=== PATIENT | male | born 1985 | race American Indian/Alaskan Native ===

== ENCOUNTER 2018-07-26 22:15 | Inpatient (IN) | payer MEDICAID, OTHER ==
--- NOTE | 2018-07-26 22:49 | ED PDOC ---
Arrival/HPI - General Chief Complaint: Psychiatric Evaluation Time Seen by Provider: 07/26/18 22:20 Historian: Patient - History of Present Illness Narrative History of Present Illness (Text): 07/26/18 22:48 Дмитрий Castellon is a 33 year old male who presents to the emergency department complaining of depression tonight. Patient states he has been feeling increasingly depressed recently with associated suicidal ideation and homicidal ideation. Patient denies any fever, chills, chest pain, shortness of breath, abdominal pain, nausea, vomiting, diarrhea, urinary symptoms, back pain , neck pain, headache, dizziness, or any other complaints. Symptom Onset: Gradual Symptom Course: Unchanged Activities at Onset: Light Context: Home Past Medical History - Provider Review Nursing Documentation Reviewed: Yes - Infectious Disease Hx of Infectious Diseases: None - Cardiac Hx Cardiac Disorders: No - Pulmonary Hx Respiratory Disorders: No - Neurological Hx Neurological Disorder: No - HEENT Hx HEENT Disorder: No - Renal Hx Renal Disorder: No - Endocrine/Metabolic Hx Endocrine Disorders: No - Hematological/Oncological Hx Blood Disorders: No - Integumentary Hx Dermatological Disorder: No - Musculoskeletal/Rheumatological Hx Musculoskeletal Disorders: No - Gastrointestinal Hx Gastrointestinal Disorders: Yes - Genitourinary/Gynecological Hx Genitourinary Disorders: No - Psychiatric Hx Psychophysiologic Disorder: Yes Hx Substance Use: No Other/Comment: ADHD Family/Social History - Physician Review Nursing Documentation Reviewed: Yes Family/Social History: Unknown Family HX Smoking Status: Never Smoked Hx Alcohol Use: Yes Frequency of alcohol use: Socially Hx Substance Use: No Allergies/Home Meds Allergies/Adverse Reactions: Allergies No Known Allergies Allergy (Verified 07/27/18 04:05) Home Medications: Home Meds Medication Instructions Recorded Confirmed Methylphenidate HCl [Concerta] 54 mg PO DAILY 07/26/18 07/27/18 OXcarbazepine [Trileptal] 300 mg PO DAILY 07/26/18 07/27/18 Oxcarbazepine [Trileptal] 500 mg PO HS 07/27/18 07/27/18 Review of Systems - Physician Review All systems were reviewed & negative as marked: Yes - Review of Systems Constitutional: Normal. absent: Fevers Eyes: Normal ENT: Normal Respiratory: Normal. absent: SOB, Cough Cardiovascular: Normal. absent: Chest Pain Gastrointestinal: Normal. absent: Abdominal Pain, Diarrhea, Nausea, Vomiting Genitourinary Male: Normal. absent: Dysuria, Frequency, Hematuria, Urinary Output Changes Musculoskeletal: Normal. absent: Back Pain, Neck Pain Skin: Normal. absent: Rash Neurological: Normal. absent: Headache, Dizziness Endocrine: Normal Hemo/Lymphatic: Normal Psychiatric: Depression, Suicidal Ideation, Other (+homicidal ideation) Physical Exam Vital Signs Reviewed: Yes Vital Signs Temp Pulse Resp BP Pulse Ox 07/27/18 03:06 98.2 F 85 16 132/70 100 07/26/18 23:30 98.2 F 30 L 16 135/85 100 Temperature: Afebrile Blood Pressure: Normal Pulse: Regular Respiratory Rate: Normal Appearance: Positive for: Well-Appearing, Non-Toxic, Comfortable Pain Distress: None Mental Status: Positive for: Alert and Oriented X 3 - Systems Exam Head: Present: Atraumatic, Normocephalic Pupils: Present: PERRL Extroacular Muscles: Present: EOMI Conjunctiva: Present: Normal Mouth: Present: Moist Mucous Membranes Neck: Present: Normal Range of Motion Respiratory/Chest: Present: Clear to Auscultation, Good Air Exchange. No: Respiratory Distress, Accessory Muscle Use Cardiovascular: Present: Regular Rate and Rhythm, Normal S1, S2. No: Murmurs Abdomen: No: Tenderness, Distention, Peritoneal Signs Back: Present: Normal Inspection Upper Extremity: Present: Normal Inspection. No: Cyanosis, Edema Lower Extremity: Present: Normal Inspection. No: Edema Neurological: Present: GCS=15, CN II-XII Intact, Speech Normal Skin: Present: Warm, Dry, Normal Color. No: Rashes Psychiatric: Present: Alert, Oriented x 3, Normal Insight, Normal Concentration Medical Decision Making ED Course and Treatment: 07/26/18 22:49 Impression: 33 year old male complaining depression, suicidal ideation, and homicidal ideation. Plan: -- EKG -- Chest X-Ray -- Labs, alcohol level -- Urinalysis, urine drug screen -- Reassess and disposition Prior Visits: Notes and results from previous visits were reviewed. Progress Notes: Reviewed EKG, NSR at [address]-segment elevations or depressions, no T-wave inversions, normal intervals. 07/26/18 23:35 Chest X-Ray reviewed, shows no acute processes. 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 Pt will be admitted to [facility] for depression under Dr. Rdz's service. - Lab Interpretations Lab Results: 07/26/18 22:59 07/26/18 22:59 Lab Results 07/27/18 02:40: Urine Opiates Screen Negative, Urine Methadone Screen Negative, Ur Barbiturates Screen Negative, Ur Phencyclidine Scrn Negative, Ur Amphetamines Screen Negative, U Benzodiazepines Scrn Negative, U Oth Cocaine Metabols Negative, U Cannabinoids Screen Negative 07/27/18 02:40: Urine Color Yellow, Urine Appearance Clear, Urine pH 6.5, Ur Specific [place] 1.025, Urine Protein Trace H, Urine Glucose (UA) Negative, Urine Ketones Trace H, Urine Blood Negative, Urine Nitrate Negative, Urine Bilirubin Negative, Urine Urobilinogen 0.2, Ur Leukocyte Esterase Negative, Urine RBC 0 - 2, Urine WBC 0 - 2, Ur Epithelial Cells 0 - 2, Urine Bacteria Occ , Urine Other Mucus 07/26/18 22:59: Alcohol, Quantitative < 10 07/26/18 22:59: Salicylates < 1 L, Acetaminophen < 10.0 L 07/26/18 22:59: Sodium 143, Potassium 4.1, Chloride 105, Carbon Dioxide 28, Anion Gap 14, BUN 13, Creatinine 0.9, Est GFR ( Amer) > 60, Est GFR (Non- Af Amer) > 60, Random Glucose 88, Calcium 9.0, Magnesium 2.1, Total Bilirubin 0.5, AST 22, ALT 25, Alkaline Phosphatase 87, Total Creatine Kinase 75, Total Protein 7.0, Albumin 3.7, Globulin 3.2, Albumin/Globulin Ratio 1.1 07/26/18 22:59: WBC 9.9, RBC 4.62, Hgb 14.5, Hct 42.3, MCV 91.6, MCH 31.4, MCHC 34.3, RDW 12.6, Plt Count 339, MPV 9.6, Gran % 67.7, Lymph % (Auto) 25.3, [place] % (Auto) 5.3, Eos % (Auto) 1.4 L, Baso % (Auto) 0.3, Gran # 6.69 H, Lymph # ( Auto) 2.5, [place] # (Auto) 0.5, Eos # (Auto) 0.1, Baso # (Auto) 0.03 I have reviewed the lab results: Yes - RAD Interpretation Radiology Orders: 07/26/18 22:48 CHEST PORTABLE [RAD] Stat 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: ED Physician - EKG Interpretation Interpreted by ED Physician: Yes Type: 12 lead EKG - Medication Orders Current Medication Orders: Acetaminophen (Tylenol 325mg Tab) 650 mg PO Q4H PRN PRN Reason: Pain, Mild (1-3) Al Hydrox/Mg Hydrox/Simethicone (Maalox Plus 30 Ml) 30 ml PO DAILY PRN PRN Reason: Upset Stomach Magnesium Hydroxide (Milk Of Magnesia) 30 ml PO DAILY PRN PRN Reason: Constipation - Scribe Statement The provider has reviewed the documentation as recorded by the Elma Brown Provider Scribe Attestation: All medical record entries made by the Scribe were at my direction and personally dictated by me. I have reviewed the chart and agree that the record accurately reflects my personal performance of the history, physical exam, medical decision making, and the department course for this patient. I have also personally directed, reviewed, and agree with the discharge instructions and disposition. Disposition/Present on Arrival - Present on Arrival Any Indicators Present on Arrival: No History of DVT/PE: No History of Uncontrolled Diabetes: No Urinary Catheter: No History of Decub. Ulcer: No History Surgical Site Infection Following: None - Disposition Have Diagnosis and Disposition been Completed?: Yes Diagnosis: Depression Disposition: HOSPITALIZED Disposition Time: 02:25 Condition: GOOD
[2018-07-26 23:32] LABS: BASO # 0.03 K/mm3 (0.0-2.0); BASO % 0.3 % (0.0-3.0); EOS # 0.1 (0.0-0.7); EOS % 1.4 % (1.5-5.0); GRAN # 6.69 (1.4-6.5); GRAN % 67.7 % (50.0-68.0); HEMOGLOBIN 14.5 g/dL (14.0-18.0); LYMPH # 2.5 (1.2-3.4); LYMPH % 25.3 % (22.0-35.0); MEAN CELL VOLUME 91.6 fl (80.0-105.0); MEAN CORPUSCULAR HEMOGLOBIN 31.4 pg (25.0-35.0); MEAN CORPUSCULAR HGB CONC 34.3 g/dl (31.0-37.0); MEAN PLATELET VOLUME 9.6 fl (7.0-11.0); MONO # 0.5 (0.1-0.6); MONO % 5.3 % (1.0-6.0); RBC 4.62 10^6/uL (3.5-6.1); RED CELL DISTRIBUTION WIDTH 12.6 % (11.5-14.5); WHITE BLOOD COUNT 9.9 10^3/ul (4.5-11.0)
[2018-07-26 23:49] LABS: ALB/GLOB RATIO 1.1 (1.1-1.8); ALBUMIN 3.7 g/dL (3.0-4.8); ALT/SGPT 25 U/L (7-56); AST/SGOT 22 U/L (17-59); BLOOD UREA NITROGEN 13 mg/dL (7-21); GFR NON-AFRICAN AMERICAN > 60
[2018-07-27 00:02] LABS: ACETAMINOPHEN < 10.0 ug/ml (10.0-20.0); SALICYLATE < 1 mg/dL (2.0-20.0)
[2018-07-27 00:37] VITALS: O2SAT 100
[2018-07-27 03:06] LABS: PH,URINE 6.5 (4.7-8.0); URINE BILIRUBIN NEGATIVE (NEGATIVE); URINE BLOOD NEGATIVE (NEGATIVE); URINE GLUCOSE (UA) NEGATIVE (NEGATIVE); URINE LEUKOCYTE ESTERASE NEGATIVE Leu/uL (NEGATIVE); URINE PROTEIN TRACE mg/dL (<30 mg/dL); URINE UROBILINOGEN 0.2 E.U./dL (<1 E.U./dL)
[2018-07-27 03:10] LABS: URINE APPEARANCE CLEAR (CLEAR); URINE COLOR YELLOW (YELLOW)
[2018-07-27 03:16] LABS: URINE BACTERIA OCC (NEG); URINE EPITHELIAL CELLS 0 - 2 /hpf (0-5); URINE RBC 0 - 2 /hpf (0-2); URINE WBC 0 - 2 /hpf (0-6)
[2018-07-27 04:16] LABS: BARBITURATES, UR NEGATIVE (NEGATIVE); BENZODIAZEPINES, UR NEGATIVE (NEGATIVE); OPIATES, UR NEGATIVE (NEGATIVE); PHENCYCLIDINE, UR NEGATIVE (NEGATIVE)
[2018-07-27] MEDS ORDERED: Magnesium Hydroxide Susp 30 ml UD PO PRN (04:37)
[2018-07-27] MEDS ORDERED: Alum-Mag Hydrox-Simethicone Susp (30 mL) PO PRN (04:37)
--- NOTE | 2018-07-27 04:46 | PCM.BM ---
<Ezequiel Roca - Last Filed: 07/27/18 04:42> Treatment Plan Problems - Problems identified on initial assessmt SUICIDAL IDEATION Date Initiated: 07/27/18 Time Initiated: 05:00 Status: Active Priority: 1 HOMICIDAL IDEATION Date Initiated: 07/27/18 Time Initiated: 05:00 Assessment reference: NA Status: Active Priority: 2 INEFFECTIVE COPING Date Initiated: 07/27/18 Time Initiated: 17:00 Assessment reference: NA Status: Active Priority: 3 Treatment assets and liabiliti Patient Assests: cooperative, educated, motivated, self-reliant, ADL independent , physically healthy, good support system, negotiates basic needs, financial stabiity, cognitively intact Patient Liabilities: live alone, financial problems, relationship conflicts, medical problems <Nikita Ballard - Last Filed: 07/27/18 10:43> - Diagnosis (1) Anxiety Status: Acute Interventions: 07/27/18 10:44 Lexapro 5 mg po daily for depression and anxiety * Ativan 0.5 mg AM/HS for anxiety * Sonata 5 mg po HS prn: insomnia * (2) Homicidal behavior Status: Acute Interventions: Lexapro 5 mg po daily for depression and anxiety * Ativan 0.5 mg AM/HS for anxiety * Sonata 5 mg po HS prn: insomnia * Outreach to [facility] regarding [place] 07/27/18 10:44 (3) Depression Status: Acute Interventions: 07/27/18 10:44 Lexapro 5 mg po daily for depression and anxiety * Ativan 0.5 mg AM/HS for anxiety * Sonata 5 mg po HS prn: insomnia * <Katherine Chacko - Last Filed: 07/28/18 10:02> Family Contact Family involvement: Famliy/SO not involved <Lesly Sterling - Last Filed: 08/07/18 12:17>
[2018-07-27 07:48] LABS: GLUCOSE,FASTING 116 mg/dL (65-110); HDL CHOLESTEROL 56 mg/dL (29-60)
[2018-07-27 07:59] LABS: LDL CHOLESTEROL 107 mg/dL (0-129)
--- NOTE | 2018-07-27 08:31 | RAD ---
Date of service: 07/26/2018 HISTORY: si COMPARISON: No prior. FINDINGS: LUNGS: No active pulmonary disease. PLEURA: No significant pleural effusion identified, no pneumothorax apparent. CARDIOVASCULAR: Normal. OSSEOUS STRUCTURES: No significant abnormalities. VISUALIZED UPPER ABDOMEN: Normal. OTHER FINDINGS: None. IMPRESSION: No active disease.
--- NOTE | 2018-07-27 09:58 | CARD ---
APPROVED REPORT Date of service: 07/26/2018 EKG Measurement Heart [id number] <Conclusion> Normal sinus rhythm Small q in lll J-point elevations
--- NOTE | 2018-07-27 10:42 | PCM.PSYCH ---
Initial Psychiatric Evaluation - Initial Psychiatric Evaluation Type of Admission: Voluntary Legal Status: Capacity History of Present Illness and Precipitating Events: Mr. Дмитрий Castellon is a single 33 year old, homeless -[place] male with a reported history of depression and anxiety, no history of SA, no current outpatient tx who presented to the emergency department complaining of depression and thoughts to harm his former 70 year old boyfriend who evicted him from their [place] apartment a month ago. Patient reported he had a lot of anger towards this exbf who had also apparently thrown out his belongings. Patient admitted that he had thoughts of killing himself and burning down his ex -boyfriend's home so he went to the [facility] upon his friend's advice. Patient presents as pleasant, friendly and well-oriented to month, year, location and circumstances. Indicates that he was just discharged from [facility] x 3 weeks ago and didn't take discharge medications because he didn't find them to be beneficial. Reports that lexapro and ativan have been beneficial for him in the past. He also reports that he used to be prescribed Concerta for ADHD but understands that he will not be receiving this medication on the unit. Patient has been in good control. He denies having thoughts to harm himself or his exboyfriend. He seems labile but not particularly angry or agitated. SOCIAL Patient was born in [place] and raised in [place]. Patient is homosexual and was living with his 70 yo boyfriend who was also his employer. He was evicted a month ago from this residence in [place], [place]. He is currently homeless and stays with friends or in hotels. Collateral information from [facility] indicates that this exboyfriend has a restraining order against patient. It appears that patient tried to obtain squatter's rights to the apartment but was kicked out before the 30 day residency minimum. Patient denies drug or alcohol use. Smokes a pack of cigarettes daily. I reviewed morbidity and mortality risks of continued tobacco use and patient agrees to start nicotine patch. Legal: Pt reported that he was arrested 3 weeks ago for breaking glass in [place], [place], Pt reported he was taken to the police station, mug shot and finger prints were taken, went to court and released. Pt reported that no probation or fine was given. Denies any other legal history. PSYCHIATRIC HISTORY Patient reports recent admission to [facility] x3 days x3 weeks ago. He cannot recall prescribed medications but felt they were not beneficial. Reports that he was diagnosed with ADHD and has taken Concerta in the past by his PCP Dr. Lisa Lyons @[phone]. Pt reported that he has not seen her in 1 year that he has been seeing other doctors for his medication (because she had a baby). Patient was also prescribed trileptal 300 mg AM and 450 mg HS for reported seizures secondary to the stress of the last 1-2 months (per patient). Pt reported he went [place] [facility] [place] and reported that he had a bad experience withthe staff and the doctors not providing him with his own medication. Current Medications: Active Medications Generic Name Dose Route Start Last Admin Trade Name Freq PRN Reason Stop Dose Admin Acetaminophen 650 mg 07/27/18 04:37 Tylenol 325mg Tab PO Q4H PRN Pain, Mild (1-3) Al Hydrox/Mg Hydrox/Simethicone 30 ml 07/27/18 04:37 Maalox Plus 30 Ml PO DAILY PRN Upset Stomach Magnesium Hydroxide 30 ml 07/27/18 04:37 Milk Of Magnesia PO DAILY PRN Constipation Past Psychiatric History - Past Psychiatric History Pertinent Medical Hx (Current Medical&Sleep Prob, Allergies): Allergies Allergy/AdvReac Type Severity Reaction Status Date / Time No Known Allergies Allergy Verified 07/27/18 04:05 Methylphenidate HCl [Concerta] 54 mg PO DAILY 07/26/18 OXcarbazepine [Trileptal] 300 mg PO DAILY 07/26/18 Oxcarbazepine [Trileptal] 500 mg PO HS 07/27/18 DSM 5 DX - DSM 5 DSM 5 Diagnosis: Adjustment disorder with mixed depression and anxiety RUFUS Panic Disorder by hx ADHD by hx r/o Major Depression, severe without psychotic features r/o Borderline Personality Disorder - Recommended/Plan of Treatment Treatment Recommendations and Plan of Treatment: * group, milieu and supportive tx * Lexapro 5 mg po daily for depression and anxiety * Ativan 0.5 mg AM/HS for anxiety * Sonata 5 mg po HS prn: insomnia * Nicotine patch 21 mg * Neurology consult for reported history of seizures--Will start trileptal 300 mg po bid until patient is evaluated. Medical student confirmed that patient was prescribe trileptal 300 mg po bid by Dr. Mancini, last refilled on 07/14/18 * Outreach to ex warning him of patient's reported Homicidal thoughts * Vitals reviewed and noted below: Selected Entries 07/27/18 07:12 Temperature 98.0 F Pulse Rate 68 Respiratory 20 Rate Blood Pressure 101/62 * Admission labs noted below: Laboratory Tests 07/26/18 07/26/18 07/26/18 22:59 22:59 22:59 WBC 9.9 RBC 4.62 Hgb 14.5 Hct 42.3 MCV 91.6 MCH 31.4 MCHC 34.3 RDW 12.6 Plt Count 339 MPV 9.6 Gran % 67.7 Lymph % (Auto) 25.3 [place] % (Auto) 5.3 Eos % (Auto) 1.4 L Baso % (Auto) 0.3 Gran # 6.69 H Lymph # (Auto) 2.5 [place] # (Auto) 0.5 Eos # (Auto) 0.1 Baso # (Auto) 0.03 Sodium 143 Potassium 4.1 Chloride 105 Carbon Dioxide 28 Anion Gap 14 BUN 13 Creatinine 0.9 Est GFR ( Amer) > 60 Est GFR (Non-Af Amer) > 60 Random Glucose 88 Fasting Glucose Calcium 9.0 Magnesium 2.1 Total Bilirubin 0.5 AST 22 ALT 25 Alkaline Phosphatase 87 Total Creatine Kinase 75 Total Protein 7.0 Albumin 3.7 Globulin 3.2 Albumin/Globulin Ratio 1.1 Triglycerides Cholesterol LDL Cholesterol Direct HDL Cholesterol TSH 3rd Generation Urine Color Urine Appearance Urine pH Ur Specific [place] Urine Protein Urine Glucose (UA) Urine Ketones Urine Blood Urine Nitrate Urine Bilirubin Urine Urobilinogen Ur Leukocyte Esterase Urine RBC Urine WBC Ur Epithelial Cells Urine Bacteria Urine Other Salicylates < 1 L Urine Opiates Screen Urine Methadone Screen Acetaminophen < 10.0 L Ur Barbiturates Screen Ur Phencyclidine Scrn Ur Amphetamines Screen U Benzodiazepines Scrn U Oth Cocaine Metabols U Cannabinoids Screen Alcohol, Quantitative 07/26/18 07/27/18 07/27/18 22:59 02:40 02:40 WBC RBC Hgb Hct MCV MCH MCHC RDW Plt Count MPV Gran % Lymph % (Auto) [place] % (Auto) Eos % (Auto) Baso % (Auto) Gran # Lymph # (Auto) [place] # (Auto) Eos # (Auto) Baso # (Auto) Sodium Potassium Chloride Carbon Dioxide Anion Gap BUN Creatinine Est GFR ( Amer) Est GFR (Non-Af Amer) Random Glucose Fasting Glucose Calcium Magnesium Total Bilirubin AST ALT Alkaline Phosphatase Total Creatine Kinase Total Protein Albumin Globulin Albumin/Globulin Ratio Triglycerides Cholesterol LDL Cholesterol Direct HDL Cholesterol TSH 3rd Generation Urine Color Yellow Urine Appearance Clear Urine pH 6.5 Ur Specific [place] 1.025 Urine Protein Trace H Urine Glucose (UA) Negative Urine Ketones Trace H Urine Blood Negative Urine Nitrate Negative Urine Bilirubin Negative Urine Urobilinogen 0.2 Ur Leukocyte Esterase Negative Urine RBC 0 - 2 Urine WBC 0 - 2 Ur Epithelial Cells 0 - 2 Urine Bacteria Occ Urine Other Mucus Salicylates Urine Opiates Screen Negative Urine Methadone Screen Negative Acetaminophen Ur Barbiturates Screen Negative Ur Phencyclidine Scrn Negative Ur Amphetamines Screen Negative U Benzodiazepines Scrn Negative U Oth Cocaine Metabols Negative U Cannabinoids Screen Negative Alcohol, Quantitative < 10 07/27/18 07/27/18 06:30 06:30 WBC RBC Hgb Hct MCV MCH MCHC RDW Plt Count MPV Gran % Lymph % (Auto) [place] % (Auto) Eos % (Auto) Baso % (Auto) Gran # Lymph # (Auto) [place] # (Auto) Eos # (Auto) Baso # (Auto) Sodium Potassium Chloride Carbon Dioxide Anion Gap BUN Creatinine Est GFR ( Amer) Est GFR (Non-Af Amer) Random Glucose Fasting Glucose 116 H Calcium Magnesium Total Bilirubin AST ALT Alkaline Phosphatase Total Creatine Kinase Total Protein Albumin Globulin Albumin/Globulin Ratio Triglycerides 117 Cholesterol 202 H LDL Cholesterol Direct 107 HDL Cholesterol 56 TSH 3rd Generation 1.01 Urine Color Urine Appearance Urine pH Ur Specific [place] Urine Protein Urine Glucose (UA) Urine Ketones Urine Blood Urine Nitrate Urine Bilirubin Urine Urobilinogen Ur Leukocyte Esterase Urine RBC Urine WBC Ur Epithelial Cells Urine Bacteria Urine Other Salicylates Urine Opiates Screen Urine Methadone Screen Acetaminophen Ur Barbiturates Screen Ur Phencyclidine Scrn Ur Amphetamines Screen U Benzodiazepines Scrn U Oth Cocaine Metabols U Cannabinoids Screen Alcohol, Quantitative - Smoking Cessation Smoking Cessation Initiated: Yes
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
[2018-07-28] MEDS ORDERED: POLYETHYLENE GLYCOL 3350 17 GM/Dose PACKET PO PRN (16:15)
[2018-07-28] MEDS: Hemorrohoidal Ointment (2 oz) TOP SCH (17:06)
[2018-07-29] MEDS: Hemorrohoidal Ointment (2 oz) TOP SCH ×2 (08:47→17:00)
--- NOTE | 2018-07-29 09:12 | PCM.PYCHPN ---
Psychiatric Progress Note - Psychiatric Progress Note Patient seen today, length of contact: 30 min Problems Identified/Issues Discussed: History of Present Illness and Precipitating Events: Mr. Дмитрий Castellon is a single 33 year old, homeless -[place] male with a reported history of depression and anxiety, no history of SA, no current outpatient tx who presented to the emergency department complaining of depression and thoughts to harm his former 70 year old boyfriend who evicted him from their [place] apartment a month ago. Patient reported he had a lot of anger towards this exbf who had also apparently thrown out his belongings. Patient admitted that he had thoughts of killing himself and burning down his ex -boyfriend's home so he went to the [facility] upon his friend's advice. Patient presents as pleasant, friendly and well-oriented to month, year, location and circumstances. Indicates that he was just discharged from x 3 weeks ago and didn't take discharge medications because he didn't find them to be beneficial. Reports that lexapro and ativan have been beneficial for him in the past. He also reports that he used to be prescribed Concerta for ADHD but understands that he will not be receiving this medication on the unit. Patient has been in good control. He denies having thoughts to harm himself or his exboyfriend. He seems labile but not particularly angry or agitated. SOCIAL Patient was born in [place] and raised in [place]. Patient is homosexual and was living with his 70 yo boyfriend who was also his employer. He was evicted a month ago from this residence in [place], [place]. He is currently homeless and stays with friends or in hotels. Collateral information from [facility] indicates that this exboyfriend has a restraining order against patient. It appears that patient tried to obtain [facility] rights to the [facility] but was kicked out before the 30 day residency minimum. Patient denies drug or alcohol use. Smokes a pack of cigarettes daily. I reviewed morbidity and mortality risks of continued tobacco use and patient agrees to start nicotine patch. Legal: Pt reported that he was arrested 3 weeks ago for breaking glass in [place], [place], Pt reported he was taken to the police station, mug shot and finger prints were taken, went to court and released. Pt reported that no probation or fine was given. Denies any other legal history. PSYCHIATRIC HISTORY Patient reports recent admission to x3 days x3 weeks ago. He cannot recall prescribed medications but felt they were not beneficial. Reports that he was diagnosed with ADHD and has taken Concerta in the past by his PCP Dr. Lisa Lyons @[phone]. Pt reported that he has not seen her in 1 year that he has been seeing other doctors for his medication (because she had a baby). Patient was also prescribed trileptal 300 mg AM and 450 mg HS for reported seizures secondary to the stress of the last 1-2 months (per patient). Pt reported he went to [facility] for treatment and reported that he had a bad experience withthe staff and the doctors not providing him with his own medication. PROGRESS NOTE I reviewed recent notes and met with patient at bedside. Patient continues to present as pleasant, friendly and well-oriented to month, year, location and circumstances. He has been calm and cooperative on the unit without any evidence of perceptual disturbance. Patient can communicate his needs well. Patient currently denies any side effects from his medications or any new discomfort or pain. Patient has been visible and participating in unit activities. He can tolerate group settings with evidence of anger or agitation. There have been no behavioral issues thus far. Diagnostic Results: Adjustment disorder with mixed depression and anxiety RUFUS Panic Disorder by hx ADHD by hx r/o Major Depression, severe without psychotic features r/o Borderline Personality Disorder Medication Change: Yes (Increased lexapro) Medical Record Reviewed: Yes Mental Status Examination - Homicidal Ideation Homicidal Ideation: Yes Goal/Treatment Plan - Goal/Treatment Plan Progress Toward Problem(s) and Goals/Treatment Plan: * group, milieu and supportive tx * Lexapro increased to 10 mg po daily on 07/28/18 for depression and anxiety * Ativan 0.5 mg AM/HS for anxiety * Sonata 5 mg po HS prn: insomnia * Nicotine patch 21 mg daily * Appreciate f/u by Dr. Vogel/Dr. Cruz on 07/28/18~Topical cream, sitz baths , miralax prn for Hemorrhoids, pending HIV, HPV, GC/Chlamydia, HSV, RPR blood tests for anal tags/warts, c/w trileptal and ativan for hx of seizures and signed off * STILL AWAITING NEUROLOGY CONSULT: neurology consult for reported history of seizures--Will start trileptal 300 mg po bid until patient is evaluated. Medical student confirmed that patient was prescribe trileptal 300 mg po bid by Dr. Mancini, last refilled on 07/14/18 * Outreach to ex warning him of patient's reported Homicidal thoughts (which patient now denies) * Vitals reviewed and noted below: Selected Entries 07/28/18 07/28/18 07:12 15:03 Temperature 97.4 F L Pulse Rate 67 96 H Respiratory 20 Rate Blood Pressure 109/62 121/73 * Admission labs noted below: Laboratory Tests 07/26/18 07/26/18 07/26/18 22:59 22:59 22:59 WBC 9.9 RBC 4.62 Hgb 14.5 Hct 42.3 MCV 91.6 MCH 31.4 MCHC 34.3 RDW 12.6 Plt Count 339 MPV 9.6 Gran % 67.7 Lymph % (Auto) 25.3 [place] % (Auto) 5.3 Eos % (Auto) 1.4 L Baso % (Auto) 0.3 Gran # 6.69 H Lymph # (Auto) 2.5 [place] # (Auto) 0.5 Eos # (Auto) 0.1 Baso # (Auto) 0.03 Sodium 143 Potassium 4.1 Chloride 105 Carbon Dioxide 28 Anion Gap 14 BUN 13 Creatinine 0.9 Est GFR ( Amer) > 60 Est GFR (Non-Af Amer) > 60 Random Glucose 88 Fasting Glucose Calcium 9.0 Magnesium 2.1 Total Bilirubin 0.5 AST 22 ALT 25 Alkaline Phosphatase 87 Total Creatine Kinase 75 Total Protein 7.0 Albumin 3.7 Globulin 3.2 Albumin/Globulin Ratio 1.1 Triglycerides Cholesterol LDL Cholesterol Direct HDL Cholesterol TSH 3rd Generation Urine Color Urine Appearance Urine pH Ur Specific Guin Urine Protein Urine Glucose (UA) Urine Ketones Urine Blood Urine Nitrate Urine Bilirubin Urine Urobilinogen Ur Leukocyte Esterase Urine RBC Urine WBC Ur Epithelial Cells Urine Bacteria Urine Other Salicylates < 1 L Urine Opiates Screen Urine Methadone Screen Acetaminophen < 10.0 L Ur Barbiturates Screen Ur Phencyclidine Scrn Ur Amphetamines Screen U Benzodiazepines Scrn U Oth Cocaine Metabols U Cannabinoids Screen Alcohol, Quantitative 07/26/18 07/27/18 07/27/18 22:59 02:40 02:40 WBC RBC Hgb Hct MCV MCH MCHC RDW Plt Count MPV Gran % Lymph % (Auto) [place] % (Auto) Eos % (Auto) Baso % (Auto) Gran # Lymph # (Auto) [place] # (Auto) Eos # (Auto) Baso # (Auto) Sodium Potassium Chloride Carbon Dioxide Anion Gap BUN Creatinine Est GFR ( Amer) Est GFR (Non-Af Amer) Random Glucose Fasting Glucose Calcium Magnesium Total Bilirubin AST ALT Alkaline Phosphatase Total Creatine Kinase Total Protein Albumin Globulin Albumin/Globulin Ratio Triglycerides Cholesterol LDL Cholesterol Direct HDL Cholesterol TSH 3rd Generation Urine Color Yellow Urine Appearance Clear Urine pH 6.5 Ur Specific Guin 1.025 Urine Protein Trace H Urine Glucose (UA) Negative Urine Ketones Trace H Urine Blood Negative Urine Nitrate Negative Urine Bilirubin Negative Urine Urobilinogen 0.2 Ur Leukocyte Esterase Negative Urine RBC 0 - 2 Urine WBC 0 - 2 Ur Epithelial Cells 0 - 2 Urine Bacteria Occ Urine Other Mucus Salicylates Urine Opiates Screen Negative Urine Methadone Screen Negative Acetaminophen Ur Barbiturates Screen Negative Ur Phencyclidine Scrn Negative Ur Amphetamines Screen Negative U Benzodiazepines Scrn Negative U Oth Cocaine Metabols Negative U Cannabinoids Screen Negative Alcohol, Quantitative < 10 07/27/18 07/27/18 06:30 06:30 WBC RBC Hgb Hct MCV MCH MCHC RDW Plt Count MPV Gran % Lymph % (Auto) [place] % (Auto) Eos % (Auto) Baso % (Auto) Gran # Lymph # (Auto) [place] # (Auto) Eos # (Auto) Baso # (Auto) Sodium Potassium Chloride Carbon Dioxide Anion Gap BUN Creatinine Est GFR ( Amer) Est GFR (Non-Af Amer) Random Glucose Fasting Glucose 116 H Calcium Magnesium Total Bilirubin AST ALT Alkaline Phosphatase Total Creatine Kinase Total Protein Albumin Globulin Albumin/Globulin Ratio Triglycerides 117 Cholesterol 202 H LDL Cholesterol Direct 107 HDL Cholesterol 56 TSH 3rd Generation 1.01 Urine Color Urine Appearance Urine pH Ur Specific Guin Urine Protein Urine Glucose (UA) Urine Ketones Urine Blood Urine Nitrate Urine Bilirubin Urine Urobilinogen Ur Leukocyte Esterase Urine RBC Urine WBC Ur Epithelial Cells Urine Bacteria Urine Other Salicylates Urine Opiates Screen Urine Methadone Screen Acetaminophen Ur Barbiturates Screen Ur Phencyclidine Scrn Ur Amphetamines Screen U Benzodiazepines Scrn U Oth Cocaine Metabols U Cannabinoids Screen Alcohol, Quantitative
[2018-07-30] MEDS: Hemorrohoidal Ointment (2 oz) TOP SCH ×2 (08:38→16:17)
--- NOTE | 2018-07-30 09:29 | PCM.PYCHPN ---
Psychiatric Progress Note - Psychiatric Progress Note Patient seen today, length of contact: 30 min Problems Identified/Issues Discussed: History of Present Illness and Precipitating Events: Mr. Дмитрий Castellon is a single 33 year old, homeless -Citizen Of [place] male with a reported history of depression and anxiety, no history of SA, no current outpatient tx who presented to the emergency department complaining of depression and thoughts to harm his former 70 year old boyfriend who evicted him from their [place] apartment a month ago. Patient reported he had a lot of anger towards this exbf who had also apparently thrown out his belongings. Patient admitted that he had thoughts of killing himself and burning down his ex -boyfriend's home so he went to the [facility] upon his friend's advice. Patient presents as pleasant, friendly and well-oriented to month, year, location and circumstances. Indicates that he was just discharged from [facility] x 3 weeks ago and didn't take discharge medications because he didn't find them to be beneficial. Reports that lexapro and ativan have been beneficial for him in the past. He also reports that he used to be prescribed Concerta for ADHD but understands that he will not be receiving this medication on the unit. Patient has been in good control. He denies having thoughts to harm himself or his exboyfriend. He seems labile but not particularly angry or agitated. SOCIAL Patient was born in [place] and raised in [place]. Patient is homosexual and was living with his 70 yo boyfriend who was also his employer. He was evicted a month ago from this residence in [place], [place]. He is currently homeless and stays with friends or in hotels. Collateral information from [facility] indicates that this exboyfriend has a restraining order against patient. It appears that patient tried to obtain [facility] rights to the [facility] but was kicked out before the 30 day residency minimum. Patient denies drug or alcohol use. Smokes a pack of cigarettes daily. I reviewed morbidity and mortality risks of continued tobacco use and patient agrees to start nicotine patch. Legal: Pt reported that he was arrested 3 weeks ago for breaking glass in [place], [place], Pt reported he was taken to the police station, mug shot and finger prints were taken, went to court and released. Pt reported that no probation or fine was given. Denies any other legal history. PSYCHIATRIC HISTORY Patient reports recent admission to [facility] x3 days x3 weeks ago. He cannot recall prescribed medications but felt they were not beneficial. Reports that he was diagnosed with ADHD and has taken Concerta in the past by his PCP Dr. Lisa Lyons @[phone]. Pt reported that he has not seen her in 1 year that he has been seeing other doctors for his medication (because she had a baby). Patient was also prescribed trileptal 300 mg AM and 450 mg HS for reported seizures secondary to the stress of the last 1-2 months (per patient). Pt reported he went to [facility] for treatment and reported that he had a bad experience withthe staff and the doctors not providing him with his own medication. PROGRESS NOTE I reviewed recent notes and met with patient at bedside. Patient continues to present as pleasant, friendly and well-oriented to month, year, location and circumstances. He has been calm and cooperative on the unit without any evidence of perceptual disturbance. Patient can communicate his needs well. Patient currently denies any side effects from his medications or any new discomfort or pain. He reports that he still has anxiety with ativan and requests switch to klonopin which he feels may have been more beneficial for mood and anxiety symptoms. He also reports that sleep was restless last night despite sonata 5 mg given. Patient has been visible and participating in unit activities. He can tolerate group settings with evidence of anger or agitation. There have been no behavioral issues thus far. Diagnostic Results: Adjustment disorder with mixed depression and anxiety RUFUS Panic Disorder by hx ADHD by hx r/o Major Depression, severe without psychotic features r/o Borderline Personality Disorder Medication Change: Yes (Increased sonata, changed ativan to klonopin) Medical Record Reviewed: Yes Mental Status Examination - Homicidal Ideation Homicidal Ideation: Yes Goal/Treatment Plan - Goal/Treatment Plan Progress Toward Problem(s) and Goals/Treatment Plan: * group, milieu and supportive tx * Lexapro increased to 10 mg po daily on 07/28/18 for depression and anxiety * Ativan 0.5 mg AM/HS for anxiety was switched to equivalent dose of klonopin 0.25 mg AM/HS on 07/30/18. Patient believes klonopin was more effective than ativan for his anxiety * Sonata 5 mg po HS prn: insomnia increased to 10 mg po HS prn on 07/30/18 for c/ o continued insomnia * Nicotine patch 21 mg daily * Appreciate f/u by Dr. Vogel/Dr. Cruz on 07/28/18~Topical cream, sitz baths , miralax prn for Hemorrhoids, pending HIV, HPV, GC/Chlamydia, HSV, RPR blood tests for anal tags/warts, c/w trileptal and ativan for hx of seizures and signed off * STILL AWAITING NEUROLOGY CONSULT: neurology consult for reported history of seizures--Will start trileptal 300 mg po bid until patient is evaluated. Medical student confirmed that patient was prescribe trileptal 300 mg po bid by Dr. Mancini, last refilled on 07/14/18 * Outreach to [facility] warning him of patient's reported Homicidal thoughts (which patient now denies) * Vitals reviewed and noted below: Selected Entries 07/29/18 07/29/18 07:11 16:49 Temperature 98.1 F Pulse Rate 71 78 Respiratory 20 20 Rate Blood Pressure 95/61 L 120/61 07/27/18 06:30 RPR Nonreactive * Admission labs noted below: Laboratory Tests 07/26/18 07/26/18 07/26/18 22:59 22:59 22:59 WBC 9.9 RBC 4.62 Hgb 14.5 Hct 42.3 MCV 91.6 MCH 31.4 MCHC 34.3 RDW 12.6 Plt Count 339 MPV 9.6 Gran % 67.7 Lymph % (Auto) 25.3 [place] % (Auto) 5.3 Eos % (Auto) 1.4 L Baso % (Auto) 0.3 Gran # 6.69 H Lymph # (Auto) 2.5 [place] # (Auto) 0.5 Eos # (Auto) 0.1 Baso # (Auto) 0.03 Sodium 143 Potassium 4.1 Chloride 105 Carbon Dioxide 28 Anion Gap 14 BUN 13 Creatinine 0.9 Est GFR ( Amer) > 60 Est GFR (Non-Af Amer) > 60 Random Glucose 88 Fasting Glucose Calcium 9.0 Magnesium 2.1 Total Bilirubin 0.5 AST 22 ALT 25 Alkaline Phosphatase 87 Total Creatine Kinase 75 Total Protein 7.0 Albumin 3.7 Globulin 3.2 Albumin/Globulin Ratio 1.1 Triglycerides Cholesterol LDL Cholesterol Direct HDL Cholesterol TSH 3rd Generation Urine Color Urine Appearance Urine pH Ur Specific [place] Urine Protein Urine Glucose (UA) Urine Ketones Urine Blood Urine Nitrate Urine Bilirubin Urine Urobilinogen Ur Leukocyte Esterase Urine RBC Urine WBC Ur Epithelial Cells Urine Bacteria Urine Other Salicylates < 1 L Urine Opiates Screen Urine Methadone Screen Acetaminophen < 10.0 L Ur Barbiturates Screen Ur Phencyclidine Scrn Ur Amphetamines Screen U Benzodiazepines Scrn U Oth Cocaine Metabols U Cannabinoids Screen Alcohol, Quantitative 07/26/18 07/27/18 07/27/18 22:59 02:40 02:40 WBC RBC Hgb Hct MCV MCH MCHC RDW Plt Count MPV Gran % Lymph % (Auto) [place] % (Auto) Eos % (Auto) Baso % (Auto) Gran # Lymph # (Auto) [place] # (Auto) Eos # (Auto) Baso # (Auto) Sodium Potassium Chloride Carbon Dioxide Anion Gap BUN Creatinine Est GFR ( Amer) Est GFR (Non-Af Amer) Random Glucose Fasting Glucose Calcium Magnesium Total Bilirubin AST ALT Alkaline Phosphatase Total Creatine Kinase Total Protein Albumin Globulin Albumin/Globulin Ratio Triglycerides Cholesterol LDL Cholesterol Direct HDL Cholesterol TSH 3rd Generation Urine Color Yellow Urine Appearance Clear Urine pH 6.5 Ur Specific [place] 1.025 Urine Protein Trace H Urine Glucose (UA) Negative Urine Ketones Trace H Urine Blood Negative Urine Nitrate Negative Urine Bilirubin Negative Urine Urobilinogen 0.2 Ur Leukocyte Esterase Negative Urine RBC 0 - 2 Urine WBC 0 - 2 Ur Epithelial Cells 0 - 2 Urine Bacteria Occ Urine Other Mucus Salicylates Urine Opiates Screen Negative Urine Methadone Screen Negative Acetaminophen Ur Barbiturates Screen Negative Ur Phencyclidine Scrn Negative Ur Amphetamines Screen Negative U Benzodiazepines Scrn Negative U Oth Cocaine Metabols Negative U Cannabinoids Screen Negative Alcohol, Quantitative < 10 07/27/18 07/27/18 06:30 06:30 WBC RBC Hgb Hct MCV MCH MCHC RDW Plt Count MPV Gran % Lymph % (Auto) [place] % (Auto) Eos % (Auto) Baso % (Auto) Gran # Lymph # (Auto) [place] # (Auto) Eos # (Auto) Baso # (Auto) Sodium Potassium Chloride Carbon Dioxide Anion Gap BUN Creatinine Est GFR ( Amer) Est GFR (Non-Af Amer) Random Glucose Fasting Glucose 116 H Calcium Magnesium Total Bilirubin AST ALT Alkaline Phosphatase Total Creatine Kinase Total Protein Albumin Globulin Albumin/Globulin Ratio Triglycerides 117 Cholesterol 202 H LDL Cholesterol Direct 107 HDL Cholesterol 56 TSH 3rd Generation 1.01 Urine Color Urine Appearance Urine pH Ur Specific [place] Urine Protein Urine Glucose (UA) Urine Ketones Urine Blood Urine Nitrate Urine Bilirubin Urine Urobilinogen Ur Leukocyte Esterase Urine RBC Urine WBC Ur Epithelial Cells Urine Bacteria Urine Other Salicylates Urine Opiates Screen Urine Methadone Screen Acetaminophen Ur Barbiturates Screen Ur Phencyclidine Scrn Ur Amphetamines Screen U Benzodiazepines Scrn U Oth Cocaine Metabols U Cannabinoids Screen Alcohol, Quantitative
[2018-07-31] MEDS: Hemorrohoidal Ointment (2 oz) TOP SCH ×2 (09:16→16:32)
--- NOTE | 2018-07-31 12:04 | PCM.PYCHPN ---
Psychiatric Progress Note - Psychiatric Progress Note Patient seen today, length of contact: 30 min Problems Identified/Issues Discussed: History of Present Illness and Precipitating Events: Mr. Дмитрий Castellon is a single 33 year old, homeless -[place] male with a reported history of depression and anxiety, no history of SA, no current outpatient tx who presented to the emergency department complaining of depression and thoughts to harm his former 70 year old boyfriend who evicted him from their [place] apartment a month ago. Patient reported he had a lot of anger towards this exbf who had also apparently thrown out his belongings. Patient admitted that he had thoughts of killing himself and burning down his ex -boyfriend's home so he went to the [facility] upon his friend's advice. Patient presents as pleasant, friendly and well-oriented to month, year, location and circumstances. Indicates that he was just discharged from [facility] x 3 weeks ago and didn't take discharge medications because he didn't find them to be beneficial. Reports that lexapro and ativan have been beneficial for him in the past. He also reports that he used to be prescribed Concerta for ADHD but understands that he will not be receiving this medication on the unit. Patient has been in good control. He denies having thoughts to harm himself or his exboyfriend. He seems labile but not particularly angry or agitated. SOCIAL Patient was born in [place] and raised in [place]. Patient is homosexual and was living with his 70 yo boyfriend who was also his employer. He was evicted a month ago from this residence in [place], [place]. He is currently homeless and stays with friends or in hotels. Collateral information from [facility] indicates that this exboyfriend has a restraining order against patient. It appears that patient tried to obtain [facility] rights to the [facility] but was kicked out before the 30 day residency minimum. Patient denies drug or alcohol use. Smokes a pack of cigarettes daily. I reviewed morbidity and mortality risks of continued tobacco use and patient agrees to start nicotine patch. Legal: Pt reported that he was arrested 3 weeks ago for breaking glass in [place], [place], Pt reported he was taken to the police station, mug shot and finger prints were taken, went to court and released. Pt reported that no probation or fine was given. Denies any other legal history. PSYCHIATRIC HISTORY Patient reports recent admission to [facility] x3 days x3 weeks ago. He cannot recall prescribed medications but felt they were not beneficial. Reports that he was diagnosed with ADHD and has taken Concerta in the past by his PCP Dr. Lisa yLons @[phone]. Pt reported that he has not seen her in 1 year that he has been seeing other doctors for his medication (because she had a baby). Patient was also prescribed trileptal 300 mg AM and 450 mg HS for reported seizures secondary to the stress of the last 1-2 months (per patient). Pt reported he went to [facility] for treatment and reported that he had a bad experience withthe staff and the doctors not providing him with his own medication. PROGRESS NOTE I reviewed recent notes and met with patient at bedside. Patient continues to present as pleasant, friendly and well-oriented to month, year, location and circumstances. He has been calm and cooperative on the unit without any evidence of perceptual disturbance. Patient can communicate his needs well. Patient currently denies any side effects from his medications or any new discomfort or pain. He reports that switch from ativan to klonopin yesterday was beneficial for his anxiety. Sleep continues to be restless with Sonata 10 mg HS Patient has been visible and participating in unit activities. He can tolerate group settings with evidence of anger or agitation though he generally keeps to himself on the unit. There have been no behavioral issues thus far. Diagnostic Results: Adjustment disorder with mixed depression and anxiety RUFUS Panic Disorder by hx ADHD by hx r/o Major Depression, severe without psychotic features r/o Borderline Personality Disorder Medication Change: No (Increased sonata) Medical Record Reviewed: Yes Mental Status Examination - Homicidal Ideation Homicidal Ideation: Yes Goal/Treatment Plan - Goal/Treatment Plan Progress Toward Problem(s) and Goals/Treatment Plan: * group, milieu and supportive tx * Lexapro increased to 10 mg po daily on 07/28/18 for depression and anxiety * Ativan 0.5 mg AM/HS for anxiety was switched to equivalent dose of klonopin 0.25 mg AM/HS on 07/30/18. Patient believes klonopin was more effective than ativan for his anxiety * Sonata 5 mg po HS prn: insomnia increased to 10 mg po HS prn on 07/30/18 for c/ o continued insomnia * Nicotine patch 21 mg daily * Appreciate f/u by Dr. Vogel/Dr. Cruz on 07/28/18~Topical cream, sitz baths , miralax prn for Hemorrhoids, pending HIV, HPV, GC/Chlamydia, HSV, RPR blood tests for anal tags/warts, c/w trileptal and ativan for hx of seizures and signed off * AWAITING NEUROLOGY CONSULT, REQUESTED F/U BY DR. MCKEON ON 07/31/18: neurology consult for reported history of seizures--Have started trileptal 300 mg po bid until patient is evaluated. Patient reported he started having seizures in the past 1-2 months. Medical student confirmed that patient was prescribe trileptal 300 mg po bid by Dr. Mancini, last refilled on 07/14/18 * Consider outreach to exbf warning him of patient's reported homicidal thoughts [employer]. Of note: patient has been denying any further thoughts to harm himself or his exbf while on the unit. Boyfriend had been contacted by [facility] clinician/art therapist when patient presented there a few weeks ago. He informed the clinician that he had a restraining order on this patient. * Vitals reviewed and noted below: Selected Entries 07/30/18 07/30/18 07:04 16:00 Temperature 97.7 F Pulse Rate 72 83 Respiratory 20 Rate Blood Pressure 122/75 121/79 * Admission labs noted below: Laboratory Tests 07/26/18 07/26/18 07/26/18 22:59 22:59 22:59 WBC 9.9 RBC 4.62 Hgb 14.5 Hct 42.3 MCV 91.6 MCH 31.4 MCHC 34.3 RDW 12.6 Plt Count 339 MPV 9.6 Gran % 67.7 Lymph % (Auto) 25.3 Tucker % (Auto) 5.3 Eos % (Auto) 1.4 L Baso % (Auto) 0.3 Gran # 6.69 H Lymph # (Auto) 2.5 Tucker # (Auto) 0.5 Eos # (Auto) 0.1 Baso # (Auto) 0.03 Sodium 143 Potassium 4.1 Chloride 105 Carbon Dioxide 28 Anion Gap 14 BUN 13 Creatinine 0.9 Est GFR ( Amer) > 60 Est GFR (Non-Af Amer) > 60 Random Glucose 88 Fasting Glucose Calcium 9.0 Magnesium 2.1 Total Bilirubin 0.5 AST 22 ALT 25 Alkaline Phosphatase 87 Total Creatine Kinase 75 Total Protein 7.0 Albumin 3.7 Globulin 3.2 Albumin/Globulin Ratio 1.1 Triglycerides Cholesterol LDL Cholesterol Direct HDL Cholesterol TSH 3rd Generation Urine Color Urine Appearance Urine pH Ur Specific Bethel Urine Protein Urine Glucose (UA) Urine Ketones Urine Blood Urine Nitrate Urine Bilirubin Urine Urobilinogen Ur Leukocyte Esterase Urine RBC Urine WBC Ur Epithelial Cells Urine Bacteria Urine Other Salicylates < 1 L Urine Opiates Screen Urine Methadone Screen Acetaminophen < 10.0 L Ur Barbiturates Screen Ur Phencyclidine Scrn Ur Amphetamines Screen U Benzodiazepines Scrn U Oth Cocaine Metabols U Cannabinoids Screen Alcohol, Quantitative 07/26/18 07/27/18 07/27/18 22:59 02:40 02:40 WBC RBC Hgb Hct MCV MCH MCHC RDW Plt Count MPV Gran % Lymph % (Auto) Tucker % (Auto) Eos % (Auto) Baso % (Auto) Gran # Lymph # (Auto) Tucker # (Auto) Eos # (Auto) Baso # (Auto) Sodium Potassium Chloride Carbon Dioxide Anion Gap BUN Creatinine Est GFR ( Amer) Est GFR (Non-Af Amer) Random Glucose Fasting Glucose Calcium Magnesium Total Bilirubin AST ALT Alkaline Phosphatase Total Creatine Kinase Total Protein Albumin Globulin Albumin/Globulin Ratio Triglycerides Cholesterol LDL Cholesterol Direct HDL Cholesterol TSH 3rd Generation Urine Color Yellow Urine Appearance Clear Urine pH 6.5 Ur Specific Bethel 1.025 Urine Protein Trace H Urine Glucose (UA) Negative Urine Ketones Trace H Urine Blood Negative Urine Nitrate Negative Urine Bilirubin Negative Urine Urobilinogen 0.2 Ur Leukocyte Esterase Negative Urine RBC 0 - 2 Urine WBC 0 - 2 Ur Epithelial Cells 0 - 2 Urine Bacteria Occ Urine Other Mucus Salicylates Urine Opiates Screen Negative Urine Methadone Screen Negative Acetaminophen Ur Barbiturates Screen Negative Ur Phencyclidine Scrn Negative Ur Amphetamines Screen Negative U Benzodiazepines Scrn Negative U Oth Cocaine Metabols Negative U Cannabinoids Screen Negative Alcohol, Quantitative < 10 07/27/18 07/27/18 06:30 06:30 WBC RBC Hgb Hct MCV MCH MCHC RDW Plt Count MPV Gran % Lymph % (Auto) Tucker % (Auto) Eos % (Auto) Baso % (Auto) Gran # Lymph # (Auto) Tucker # (Auto) Eos # (Auto) Baso # (Auto) Sodium Potassium Chloride Carbon Dioxide Anion Gap BUN Creatinine Est GFR ( Amer) Est GFR (Non-Af Amer) Random Glucose Fasting Glucose 116 H Calcium Magnesium Total Bilirubin AST ALT Alkaline Phosphatase Total Creatine Kinase Total Protein Albumin Globulin Albumin/Globulin Ratio Triglycerides 117 Cholesterol 202 H LDL Cholesterol Direct 107 HDL Cholesterol 56 TSH 3rd Generation 1.01 Urine Color Urine Appearance Urine pH Ur Specific Bethel Urine Protein Urine Glucose (UA) Urine Ketones Urine Blood Urine Nitrate Urine Bilirubin Urine Urobilinogen Ur Leukocyte Esterase Urine RBC Urine WBC Ur Epithelial Cells Urine Bacteria Urine Other Salicylates Urine Opiates Screen Urine Methadone Screen Acetaminophen Ur Barbiturates Screen Ur Phencyclidine Scrn Ur Amphetamines Screen U Benzodiazepines Scrn U Oth Cocaine Metabols U Cannabinoids Screen Alcohol, Quantitative
[2018-08-01] MEDS: Hemorrohoidal Ointment (2 oz) TOP SCH ×3 (09:08→16:41)
--- NOTE | 2018-08-01 09:51 | CP.PCM.CON ---
<Denise Lanier - Last Filed: 08/01/18 14:21> History of Present Illness - History of Present Illness History of Present Illness: PGY-1 Denise Lanier D.O. Neurology consult note for Dr. Mendoza's service: Дмитрий Castellon is a 33 yo male with a history of seizures , depression, anxiety, ?ADHD, and hemorrhoids. Patient is currently admitted to the psychiatric unit due to SI/HI and depression symptoms. Neurology was consulted due to the patient reporting that he has experienced seizures over the past 1-2 months. It was confirmed that patient is prescribed Tripleptal by Dr. Mancini as an outpatient. The patient reports he first started having seizures in 2008 (24 yo) when he abruptly stopped his prescription benzodiazepines. The patient states that he continued to have several seizures for about 18 months until he completed a benzo taper. The patient describes having a "funny feeling" prior to seizure onset during which he experiences weakness, dizziness, and GARCIA. He then "blacks out" and witnesses tell him that he has full-body convulsing. The patient has no recollection of convulsions himself. The patient reports being maintained on Depakote for both seizures and mood and Ativan for seizures and anxiety for a number of years. He states he did not have a seizure from 2009 up until about 1-2 months ago. The patient reports many social issues, in particular, he started drinking alcohol more heavily in March of this year. He now drinks 12 beers/day. Also, he alleges that his ex-boyfriend threw away all of his medications. He states a trigger for his seizures is stress. He is unable to accurately state how frequently he is having seizures but eventually estimates 3x/week. He was living with a boyfriend who reportedly told the patient he was having seizures during his sleep. For the past few weeks, the patient has been homeless. The patient states that he believes his last seizure was 1.5 weeks ago, and he thinks someone on the street called 911 to bring him to [facility]. He denies seizure activity during his current admission. PMH: Seizure disorder MDD RUFUS ?ADHD External hemorrhoids Meds: Recently discontinued Depakote and started Tripleptal 300 mg PO BID ~1 month Ativan 0.5 mg PO BID All: NKA FH: brother- epilepsy (onset as ), pt denies substance use father, brother, grandmother- DM SH: Homeless- recent break-up with boyfriend who he was living with in [place] Ex-boyfriend has restraining order against patient Tobacco- 1 ppd Heavy alcohol use- 12 beers/day since March, chronic use prior Denies illicit drug use, including IVDA PMD: Dr. Lisa Lyons Psych: Dr. Live Eddy neurologist Review of Systems - Constitutional Constitutional: absent: Fatigue, Fever, Weakness - EENT Eyes: absent: Blurred Vision, Change in Vision, Diplopia Ears: absent: Tinnitus, Abnormal Hearing, Dizziness - Cardiovascular Cardiovascular: absent: Chest Pain, Dyspnea, Lightheadedness, Palpitations, Syncope - Respiratory Respiratory: absent: Dyspnea - Gastrointestinal Gastrointestinal: absent: Abdominal Pain, Nausea, Vomiting - Musculoskeletal Musculoskeletal: absent: Abnormal Gait, Numbness, Tingling - Neurological Neurological: As Per HPI, Convulsions, Memory Loss (mild). absent: Abnormal Gait, Abnormal Hearing, Dizziness, Numbness, Headaches, Loss of Vision, Paresthesias, Sensory Deficit, Syncope, Tremor, Vertigo, Weakness - Psychiatric Psychiatric: Anxiety, Depression, Irritability, Mood Swings - Endocrine Endocrine: absent: Fatigue, Palpitations Past Patient History - Infectious Disease Hx of Infectious Diseases: None - Tetanus Immunizations Tetanus Immunization: Unknown - Past Medical History & Family History Past Medical History?: Yes Pertinent Family History: brother- epilepsy - Past Social History Smoking Status: Heavy Smoker > 10 Cigarettes Daily (1 ppd) Chewing Tobacco Use: No Cigar Use: No Alcohol: > 2 Drinks/Day (12 beers/day) Drugs: Denies Home Situation {Lives}: Homeless - CARDIAC Hx Cardiac Disorders: No - PULMONARY Hx Respiratory Disorders: No - NEUROLOGICAL Hx Neurological Disorder: No - HEENT Hx HEENT Problems: No - RENAL Hx Chronic Kidney Disease: No - ENDOCRINE/METABOLIC Hx Endocrine Disorders: No - HEMATOLOGICAL/ONCOLOGICAL Hx Blood Disorders: No - INTEGUMENTARY Hx Dermatological Problems: No - MUSCULOSKELETAL/RHEUMATOLOGICAL Hx Musculoskeletal Disorders: No - GASTROINTESTINAL Hx Gastrointestinal Disorders: Yes - GENITOURINARY/GYNECOLOGICAL Hx Genitourinary Disorders: No - PSYCHIATRIC Hx Substance Use: No - SURGICAL HISTORY Hx Surgeries: Yes Hx Herniorrhaphy: Yes Meds Allergies/Adverse Reactions: Allergies Allergy/AdvReac Type Severity Reaction Status Date / Time No Known Allergies Allergy Verified 07/27/18 04:05 - Medications Medications: Current Medications Acetaminophen (Tylenol 325mg Tab) 650 mg PO Q4H PRN PRN Reason: Pain, Mild (1-3) Al Hydrox/Mg Hydrox/Simethicone (Maalox Plus 30 Ml) 30 ml PO DAILY PRN PRN Reason: Upset Stomach Clonazepam (Klonopin) 0.25 mg PO AMHS [facility] PRN Reason: Protocol Last Admin: 08/01/18 09:07 Dose: 0.25 mg Escitalopram Oxalate (Lexapro) 10 mg PO DAILY [facility] Last Admin: 08/01/18 09:07 Dose: 10 mg Magnesium Hydroxide (Milk Of Magnesia) 30 ml PO DAILY PRN PRN Reason: Constipation Multi-Ingredient Ointment (Prep-Hem) 0 ea TOP BID [facility] Last Admin: 08/01/18 09:08 Dose: 1 applic Nicotine (Nicoderm Cq) 1 patch TD DAILY [facility] Last Admin: 08/01/18 09:06 Dose: 1 patch Oxcarbazepine (Trileptal) 300 mg PO BID [facility] PRN Reason: Protocol Last Admin: 08/01/18 09:07 Dose: 300 mg Polyethylene Glycol (Miralax) 17 gm PO DAILY PRN PRN Reason: Constipation Quetiapine Fumarate (Seroquel) 50 mg PO HS [facility] PRN Reason: Protocol Zaleplon (Sonata) 10 mg PO HS PRN PRN Reason: Insomnia Last Admin: 07/31/18 22:42 Dose: 10 mg Physical Exam - Constitutional Appears: Well, Non-toxic, No Acute Distress - Head Exam Head Exam: ATRAUMATIC, NORMAL INSPECTION, NORMOCEPHALIC - Eye Exam Eye Exam: EOMI, Normal appearance, PERRL - ENT Exam ENT Exam: Mucous Membranes Moist, Normal Exam - Neck Exam Neck exam: Positive for: Normal Inspection - Respiratory Exam Respiratory Exam: NORMAL BREATHING PATTERN - Cardiovascular Exam Cardiovascular Exam: REGULAR RHYTHM, +S1, +S2 - Rectal Exam Rectal Exam: Deferred - Extremities Exam Extremities exam: Positive for: normal inspection - Neurological Exam Neurological exam: Alert, CN II-XII Intact, Normal Gait, Oriented x3, Reflexes Normal - Psychiatric Exam Psychiatric exam: Normal Affect, Normal Mood - Skin Skin Exam: Dry, Intact, Normal Color, Warm Results - Vital Signs Recent Vital Signs: Last Vital Signs Temp 97.5 F L 08/01/18 07:13 Pulse 65 08/01/18 07:13 Resp 20 08/01/18 07:13 BP 104/65 08/01/18 07:13 Pulse Ox 100 07/27/18 03:06 - Labs Result Diagrams: 07/26/18 22:59 07/26/18 22:59 - EKG Data EKG Interpreted by: ER Physician EKG shows normal: Sinus rhythm Rate: Normal Assessment & Plan - Assessment and Plan (Free Text) Assessment: Patient is a 33 yo male who is currently being treated in the psych unit for depression and SI/HI. He reports that he recently started having seizures after a period of many years (since 2009). According to patient's accounts, seizures seem consistent with alcohol and/or benzo withdrawal. Plan: Seizure disorder- likely 2/2 substance use (alcohol, benzo withdrawal) - CT head: no acute pathology - F/u EEG - Trileptal 300 mg PO BID - Klonopin 0.25 mg PO BID - Recommend patient establish care with outpatient neurologist once discharged for continued management Depression, anxiety - Management per psychiatry - Currently on Lexapro 10 mg PO daily, Seroquel 50 mg PO QHS Case was discussed with attending, Dr. Mendoza. <Jerod Mendoza - Last Filed: 08/10/18 16:09> Results - Vital Signs Recent Vital Signs: Last Vital Signs Temp 97.9 F 08/09/18 07:01 Pulse 66 08/09/18 07:01 Resp 20 08/09/18 07:01 BP 100/57 L 08/09/18 07:01 Pulse Ox 100 07/27/18 03:06 - Labs Result Diagrams: 07/26/18 22:59 07/26/18 22:59 Attending/Attestation - Attestation I have personally seen and examined this patient.: Yes I have fully participated in the care of the patient.: Yes I have reviewed all pertinent clinical information: Yes Notes (Text): 08/10/18 16:08 On my exam, the patient's speech was fluent, CN 2-12 were intact, AAOX3, full strength, normal sensation, gait was normal, Romberg was normal.
--- NOTE | 2018-08-01 11:00 | CT ---
Date of service: 08/01/2018 PROCEDURE: CT HEAD WITHOUT CONTRAST. HISTORY: history of seizure COMPARISON: None available. TECHNIQUE: Axial computed tomography images were obtained through the head/brain without intravenous contrast. Radiation dose: Total exam DLP = 808 mGy-cm. This CT exam was performed using one or more of the following dose reduction techniques: Automated exposure control, adjustment of the mA and/or kV according to patient size, and/or use of iterative reconstruction technique. FINDINGS: HEMORRHAGE: No intracranial hemorrhage. BRAIN: No mass effect or edema. No atrophy or chronic microvascular ischemic changes. VENTRICLES: Unremarkable. No hydrocephalus. CALVARIUM: Unremarkable. PARANASAL SINUSES: Unremarkable as visualized. No significant inflammatory changes. MASTOID AIR CELLS: Unremarkable as visualized. No inflammatory changes. OTHER FINDINGS: None. IMPRESSION: No acute findings
--- NOTE | 2018-08-01 15:24 | PCM.PYCHPN ---
Psychiatric Progress Note - Psychiatric Progress Note Patient seen today, length of contact: 30 min Patient Chief Complaint: "I don't know where to start" Problems Identified/Issues Discussed: Suicide/ homicide prevention, past psychiatric h/o, current psychiatric symptoms , medical problems, risk/benefits and alternatives of medications, medications compliance, coping strategies, substance abuse h/o, relapse prevention, importance of follow up with psychiatrist and therapist, discharge plan. Medical Problems: questionable seizure disorder Diagnostic Results: 07/26/18 22:59 07/26/18 22:59 Lab Results 07/29/18 08:15: RPR Nonreactive 07/29/18 08:15: HIV 1&2 Ag/Ab, 4th Gen Nonreactive, HPV High Risk Pending, HPV Low Risk Pending 07/27/18 06:30: RPR Nonreactive 07/27/18 06:30: TSH 3rd Generation 1.01 07/27/18 06:30: Fasting Glucose 116 H, Triglycerides 117, Cholesterol 202 H, LDL Cholesterol Direct 107, HDL Cholesterol 56 07/27/18 02:40: Urine Opiates Screen Negative, Urine Methadone Screen Negative, Ur Barbiturates Screen Negative, Ur Phencyclidine Scrn Negative, Ur Amphetamines Screen Negative, U Benzodiazepines Scrn Negative, U Oth Cocaine Metabols Negative, U Cannabinoids Screen Negative 07/27/18 02:40: Urine Color Yellow, Urine Appearance Clear, Urine pH 6.5, Ur Specific [place] 1.025, Urine Protein Trace H, Urine Glucose (UA) Negative, Urine Ketones Trace H, Urine Blood Negative, Urine Nitrate Negative, Urine Bilirubin Negative, Urine Urobilinogen 0.2, Ur Leukocyte Esterase Negative, Urine RBC 0 - 2, Urine WBC 0 - 2, Ur Epithelial Cells 0 - 2, Urine Bacteria Occ , Urine Other Mucus 07/26/18 22:59: Alcohol, Quantitative < 10 07/26/18 22:59: Salicylates < 1 L, Acetaminophen < 10.0 L 07/26/18 22:59: Sodium 143, Potassium 4.1, Chloride 105, Carbon Dioxide 28, Anion Gap 14, BUN 13, Creatinine 0.9, Est GFR ( Amer) > 60, Est GFR (Non- Af Amer) > 60, Random Glucose 88, Calcium 9.0, Magnesium 2.1, Total Bilirubin 0.5, AST 22, ALT 25, Alkaline Phosphatase 87, Total Creatine Kinase 75, Total Protein 7.0, Albumin 3.7, Globulin 3.2, Albumin/Globulin Ratio 1.1 07/26/18 22:59: WBC 9.9, RBC 4.62, Hgb 14.5, Hct 42.3, MCV 91.6, MCH 31.4, MCHC 34.3, RDW 12.6, Plt Count 339, MPV 9.6, Gran % 67.7, Lymph % (Auto) 25.3, [place] % (Auto) 5.3, Eos % (Auto) 1.4 L, Baso % (Auto) 0.3, Gran # 6.69 H, Lymph # ( Auto) 2.5, [place] # (Auto) 0.5, Eos # (Auto) 0.1, Baso # (Auto) 0.03 Vital Signs Temp Pulse Resp BP Pulse Ox 08/01/18 07:13 97.5 F L 65 20 104/65 07/31/18 15:39 80 114/61 07/31/18 07:15 98.2 F 72 20 117/68 07/30/18 16:00 83 121/79 07/30/18 07:04 97.7 F 72 20 122/75 07/29/18 16:49 78 20 120/61 07/29/18 07:11 98.1 F 71 20 95/61 L 07/28/18 15:03 96 H 121/73 07/28/18 07:12 97.4 F L 67 20 109/62 07/27/18 16:20 72 20 110/72 07/27/18 07:12 98.0 F 68 20 101/62 07/27/18 04:31 98.7 F 20 123/71 07/27/18 04:10 20 07/27/18 03:06 98.2 F 85 16 132/70 100 07/26/18 23:30 98.2 F 30 L 16 135/85 100 DSM 5 Symptoms Update: As per Dr. Alvarez assessment: "Mr. Дмитрий Castellon is a single 33 year old, homeless -[place] male with a reported history of depression and anxiety, no history of SA, no current outpatient tx who presented to the emergency department complaining of depression and thoughts to harm his former 70 year old boyfriend who evicted him from their [place] apartment a month ago. Patient reported he had a lot of anger towards this exbf who had also apparently thrown out his belongings. Patient admitted that he had thoughts of killing himself and burning down his ex -boyfriend's home so he went to the [facility] upon his friend's advice. " patient was seen and examined today at the treatment team meeting room, patient presented with good personal hygiene, affect was bright, mood incongruent, patient is smiling widely when he was talking about his depressive symptoms and about difficulties in his life. patient was preoccupied with his ADHD medications, and the same time urine analysis was negative for any stimulants. as per Dr. Alvarez report patient has been in good control. He denies having thoughts to harm himself or his exboyfriend. He seems labile but not particularly angry or agitated. Patient reports recent admission to [facility] x3 days x3 weeks ago. He cannot recall prescribed medications but felt they were not beneficial. Reports that he was diagnosed with ADHD and has taken Concerta in the past by his PCP Dr. Lisa Lyons @[phone]. Pt reported that he has not seen her in 1 year that he has been seeing other doctors for his medication (because she had a baby). UDS was negative. He reports that switch from ativan to klonopin yesterday was beneficial for his anxiety yesterday, but today pt said "this dose cannot help even my 6yo nephew" , Sleep continues to be restless with Sonata 10 mg HS, agreed to take seroquel, pt reported to be on high doses in the past. ' Patient has been visible and participating in unit activities. He can tolerate group settings with evidence of anger or agitation though he generally keeps to himself on the unit. There have been no behavioral issues thus far. patient has strong borderline personality traits, staff splitting. Patient obviously has difficult to to control his impulses, pt agreed with anger management referral. Diagnostic Results: Adjustment disorder with mixed depression and anxiety RUFUS Panic Disorder by hx ADHD by hx r/o Major Depression, severe without psychotic features r/o Borderline Personality Disorder Medication Change: Yes (Seroquel 50 mg at the nighttime) Medical Record Reviewed: Yes Consults ordered or reviewed: neurology consult was called by discussed with internal combustion engine inspector Mental Status Examination - Cognitive Function Orientation: Person, Place, Situation, Time Memory: Intact Attention: Poor Concentration: Poor Association: WNL Fund of Knowledge: WNL - Mood Mood: Depressed, Anxious - Affect Affect: Constricted - Formal Thought Process Formal Thought Process: Circumstantial - Suicidal Ideation Suicidal Ideation: No - Homicidal Ideation Homicidal Ideation: No Goal/Treatment Plan - Goal/Treatment Plan Need for Continued Stay: Remain at risks for inpatient hospitalization, Severe depression anxiety, Discharge may exacerbated symptoms, Severe functional impairment Progress Toward Problem(s) and Goals/Treatment Plan: group, milieu and supportive tx Lexapro 10 mg po daily on 07/28/18 for depression and anxiety klonopin 0.25 mg AM/HS on 07/30/18. Patient believes klonopin was more effective than ativan for his anxiety d/c Sonata seroquel 50mg po hs for mood stabilization Nicotine patch 21 mg daily Appreciate f/u by Dr. Vogel/Dr. Cruz on 07/28/18~Topical cream, sitz baths, miralax prn for Hemorrhoids, pending HIV, HPV, GC/Chlamydia, HSV, RPR blood tests for anal tags/warts, c/w trileptal and ativan for hx of seizures and signed off NEUROLOGY CONSULT REQUESTED by Dr. Ballard, discussed with internal combustion engine inspector today. Patient reported he started having seizures in the past 1-2 months. Medical student confirmed that patient was prescribe trileptal 300 mg po bid by Dr. 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 Of note: patient has been denying any further thoughts to harm himself or his exbf while on the unit. Boyfriend had been contacted by [employer] [facility] [employer] therapist when patient presented there a few weeks ago. He informed the clinician that he had a restraining order on this patient. Family involvement Follow up on labs Will monitor closely SW evaluation for d/c planning, pt said that he has some savings and he can rent a room or stay in the hotel Pt was educated about risk/benefits and alternatives of medications, coping strategies (safety plan, suicide prevention), relapse prevention, importance of follow up with psychiatrist and therapist, stay away from drugs/alcohol/smoking Estimated Date of D/C: 08/04/18
--- NOTE | 2018-08-02 09:16 | CP.PCM.PN ---
Subjective - Date & Time of Evaluation Date of Evaluation: 08/02/18 Time of Evaluation: 11:00 - Subjective Subjective: PGY-1 Denise Lanier D.O. Neurology consult note for Dr. Garcia's service: Patient is seen and examined this morning. No seizure activity observed. Patient does not have any acute complaints. Pending EEG exam. Objective - Vital Signs/Intake and Output Vital Signs (last 24 hours): Temp Pulse Resp BP Pulse Ox 97.6 F 68 20 102/60 100 08/02/18 07:11 08/02/18 07:11 08/02/18 07:11 08/02/18 07:11 07/27/18 03:06 - Medications Medications: Current Medications Acetaminophen (Tylenol 325mg Tab) 650 mg PO Q4H PRN PRN Reason: Pain, Mild (1-3) Al Hydrox/Mg Hydrox/Simethicone (Maalox Plus 30 Ml) 30 ml PO DAILY PRN PRN Reason: Upset Stomach Clonazepam (Klonopin) 0.25 mg PO AMHS [facility] PRN Reason: Protocol Last Admin: 08/01/18 21:36 Dose: 0.25 mg Escitalopram Oxalate (Lexapro) 10 mg PO DAILY [facility] Last Admin: 08/01/18 09:07 Dose: 10 mg Magnesium Hydroxide (Milk Of Magnesia) 30 ml PO DAILY PRN PRN Reason: Constipation Multi-Ingredient Ointment (Prep-Hem) 0 ea TOP BID [facility] Last Admin: 08/01/18 16:41 Dose: Not Given Nicotine (Nicoderm Cq) 1 patch TD DAILY [facility] Last Admin: 08/01/18 09:06 Dose: 1 patch Oxcarbazepine (Trileptal) 300 mg PO BID [facility] PRN Reason: Protocol Last Admin: 08/01/18 16:28 Dose: 300 mg Polyethylene Glycol (Miralax) 17 gm PO DAILY PRN PRN Reason: Constipation Quetiapine Fumarate (Seroquel) 50 mg PO HS [facility] PRN Reason: Protocol Last Admin: 08/01/18 21:37 Dose: 50 mg Zaleplon (Sonata) 10 mg PO HS PRN PRN Reason: Insomnia Last Admin: 08/01/18 21:37 Dose: 10 mg - Constitutional Appears: Well - Head Exam Head Exam: ATRAUMATIC, NORMAL INSPECTION, NORMOCEPHALIC - Eye Exam Eye Exam: EOMI, Normal appearance - ENT Exam ENT Exam: Mucous Membranes Moist, Normal Exam - Neck Exam Neck Exam: Normal Inspection - Respiratory Exam Respiratory Exam: NORMAL BREATHING PATTERN - Rectal Exam Rectal Exam: Deferred - Extremities Exam Extremities Exam: Normal Inspection - Neurological Exam Neurological Exam: Alert, Awake, CN II-XII Intact, Normal Gait, Oriented x3 Neuro motor strength exam: Left Upper Extremity: 5, Right Upper Extremity: 5, Left Lower Extremity: 5, Right Lower Extremity: 5 - Psychiatric Exam Psychiatric exam: Normal Affect, Normal Mood - Skin Skin Exam: Dry, Intact, Normal Color, Warm Assessment and Plan - Assessment and Plan (Free Text) Assessment: Patient is a 33 yo male who is currently being treated in the psych unit for depression and SI/HI. He reports that he recently started having seizures after a period of many years (since 2009). According to patient's accounts, seizures seem consistent with alcohol and/or benzo withdrawal. Plan: Seizure disorder- likely 2/2 or exacerbated by substance use (alcohol, benzo withdrawal) - CT head: no acute pathology - F/u EEG - Trileptal 300 mg PO BID - Klonopin 0.25 mg PO BID - Recommend patient establish care with outpatient neurologist once discharged for continued management Depression, anxiety - Management per psychiatry - Currently on Lexapro 10 mg PO daily, Seroquel 50 mg PO QHS Case was discussed with attending, Dr. Garcia.
[2018-08-02] MEDS: Hemorrohoidal Ointment (2 oz) TOP SCH ×2 (09:41→15:57)
--- NOTE | 2018-08-02 16:07 | PCM.PYCHPN ---
Psychiatric Progress Note - Psychiatric Progress Note Patient seen today, length of contact: 30 min Patient Chief Complaint: "I feel little better, but I think my body is crushing from the concerta, usually it takes three days to start feeling better". Problems Identified/Issues Discussed: Suicide/ homicide prevention, past psychiatric h/o, current psychiatric symptoms , medical problems, risk/benefits and alternatives of medications, medications compliance, coping strategies, substance abuse h/o, relapse prevention, importance of follow up with psychiatrist and therapist, discharge plan. Medical Problems: questionable seizure disorder Diagnostic Results: 07/26/18 22:59 07/26/18 22:59 Lab Results 07/29/18 08:15: RPR Nonreactive 07/29/18 08:15: HIV 1&2 Ag/Ab, 4th Gen Nonreactive, HPV High Risk Pending, HPV Low Risk Pending 07/27/18 06:30: RPR Nonreactive 07/27/18 06:30: TSH 3rd Generation 1.01 07/27/18 06:30: Fasting Glucose 116 H, Triglycerides 117, Cholesterol 202 H, LDL Cholesterol Direct 107, HDL Cholesterol 56 07/27/18 02:40: Urine Opiates Screen Negative, Urine Methadone Screen Negative, Ur Barbiturates Screen Negative, Ur Phencyclidine Scrn Negative, Ur Amphetamines Screen Negative, U Benzodiazepines Scrn Negative, U Oth Cocaine Metabols Negative, U Cannabinoids Screen Negative 07/27/18 02:40: Urine Color Yellow, Urine Appearance Clear, Urine pH 6.5, Ur Specific [place] 1.025, Urine Protein Trace H, Urine Glucose (UA) Negative, Urine Ketones Trace H, Urine Blood Negative, Urine Nitrate Negative, Urine Bilirubin Negative, Urine Urobilinogen 0.2, Ur Leukocyte Esterase Negative, Urine RBC 0 - 2, Urine WBC 0 - 2, Ur Epithelial Cells 0 - 2, Urine Bacteria Occ , Urine Other Mucus 07/26/18 22:59: Alcohol, Quantitative < 10 07/26/18 22:59: Salicylates < 1 L, Acetaminophen < 10.0 L 07/26/18 22:59: Sodium 143, Potassium 4.1, Chloride 105, Carbon Dioxide 28, Anion Gap 14, BUN 13, Creatinine 0.9, Est GFR ( Amer) > 60, Est GFR (Non- Af Amer) > 60, Random Glucose 88, Calcium 9.0, Magnesium 2.1, Total Bilirubin 0.5, AST 22, ALT 25, Alkaline Phosphatase 87, Total Creatine Kinase 75, Total Protein 7.0, Albumin 3.7, Globulin 3.2, Albumin/Globulin Ratio 1.1 07/26/18 22:59: WBC 9.9, RBC 4.62, Hgb 14.5, Hct 42.3, MCV 91.6, MCH 31.4, MCHC 34.3, RDW 12.6, Plt Count 339, MPV 9.6, Gran % 67.7, Lymph % (Auto) 25.3, [place] % (Auto) 5.3, Eos % (Auto) 1.4 L, Baso % (Auto) 0.3, Gran # 6.69 H, Lymph # ( Auto) 2.5, [place] # (Auto) 0.5, Eos # (Auto) 0.1, Baso # (Auto) 0.03 Vital Signs Temp Pulse Resp BP Pulse Ox 08/01/18 07:13 97.5 F L 65 20 104/65 07/31/18 15:39 80 114/61 07/31/18 07:15 98.2 F 72 20 117/68 07/30/18 16:00 83 121/79 07/30/18 07:04 97.7 F 72 20 122/75 07/29/18 16:49 78 20 120/61 07/29/18 07:11 98.1 F 71 20 95/61 L 07/28/18 15:03 96 H 121/73 07/28/18 07:12 97.4 F L 67 20 109/62 07/27/18 16:20 72 20 110/72 07/27/18 07:12 98.0 F 68 20 101/62 07/27/18 04:31 98.7 F 20 123/71 07/27/18 04:10 20 07/27/18 03:06 98.2 F 85 16 132/70 100 07/26/18 23:30 98.2 F 30 L 16 135/85 100 DSM 5 Symptoms Update: Mr. Дмитрий Castellon is a single 33 year old, homeless -Chinese male with a reported history of depression and anxiety, no history of SA, no current outpatient tx who presented to the emergency department complaining of depression and thoughts to harm his former 70 year old boyfriend who evicted him from their [place] apartment a month ago. Patient reported he had a lot of anger towards this exbf who had also apparently thrown out his belongings. Patient admitted that he had thoughts of killing himself and burning down his ex -boyfriend's home so he went to the [facility] upon his friend's advice. patient was seen today in his room with medical student, patient reported "my body started to crush from the concerta". pt wwas giving very vague symptoms such as hot and cold sweats, and feeling "uncomfortable". At the same time patient affect was reactive, mood incongruent, patient was smiling when he was talking about uncomfortable feelings.. med list was confirmed: Patient feel medication in 07/14/2018 all prescriptions were given by Dr. Mancini at [facility], [place]. [place] carbamazepine 300 mg twice a day Seroquel 100 mg at the nighttime Concerta 54 mg daily patient feel that medication in 07/06/[address]Cara Valdes lorazepam 0.5 mg twice a day was filled in April [address] Desouza pt still has labile affect, no behavioral issues, last time pt verbalized thoughts of harming his ex-boyfriend was at the time of admission, off note his ex-boyfriend has restraining order against pt. Diagnostic Results: Adjustment disorder with mixed depression and anxiety RUFUS Panic Disorder by hx ADHD by hx r/o Major Depression, severe without psychotic features r/o Borderline Personality Disorder Medication Change: Yes (Seroquel increased to 100 mg at the nighttime) Medical Record Reviewed: Yes Consults ordered or reviewed: neurology consult was called by discussed with product marketing intern Patient was seen by neurology team, consultation appreciated, patient had EEG, waiting for results back. most likely seizures are related to alcohol and benzodiazepines withdrawals. Mental Status Examination - Cognitive Function Orientation: Person, Place, Situation, Time Memory: Intact Attention: Poor Concentration: Poor Association: WNL Fund of Knowledge: WNL - Mood Mood: Depressed, Anxious - Affect Affect: Constricted - Formal Thought Process Formal Thought Process: Circumstantial - Suicidal Ideation Suicidal Ideation: No - Homicidal Ideation Homicidal Ideation: No Goal/Treatment Plan - Goal/Treatment Plan Need for Continued Stay: Remain at risks for inpatient hospitalization, Severe depression anxiety, Discharge may exacerbated symptoms, Severe functional impairment Progress Toward Problem(s) and Goals/Treatment Plan: group, milieu and supportive tx Lexapro 10 mg po daily on 07/28/18 for depression and anxiety klonopin 0.25 mg AM/HS on 07/30/18. Patient believes klonopin was more effective than ativan for his anxiety d/c Sonata seroquel 100mg po hs for mood stabilization Nicotine patch 21 mg daily Appreciate f/u by Dr. Vogel/Dr. Cruz on 07/28/18~Topical cream, sitz baths, miralax prn for Hemorrhoids, pending HIV, HPV, GC/Chlamydia, HSV, RPR blood tests for anal tags/warts, c/w trileptal and ativan for hx of seizures and signed off NEUROLOGY CONSULT REQUESTED by Dr. Ballard, discussed with product marketing intern 08/01/18, most likely seizures related to alcohol and benzos withdrawals Patient reported he started having seizures in the past 1-2 months. Medical student confirmed that patient was prescribe trileptal 300 mg po bid by Dr. 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 Of note: patient has been denying any further thoughts to harm himself or his exbf while on the unit. Boyfriend had been contacted by [facility] director behavioral health when patient presented there a few weeks ago. He informed the clinician that he had a restraining order on this patient. Family involvement Follow up on labs Will monitor closely SW evaluation for d/c planning, pt said that he has some savings and he can rent a room or stay in the hotel Pt was educated about risk/benefits and alternatives of medications, coping strategies (safety plan, suicide prevention), relapse prevention, importance of follow up with psychiatrist and therapist, stay away from drugs/alcohol/smoking Estimated Date of D/C: 08/04/18
--- NOTE | 2018-08-03 01:32 | EEG ---
Copied To: Alden Crooks MD Attending MD: Alden Crooks MD DATE: 08/02/2018 ROUTINE ELECTROENCEPHALOGRAM REQUESTING PHYSICIAN: Dr. Garcia REASON FOR THE REQUEST: Seizures. MEDICATIONS: Clonazepam, Lexapro, quetiapine, Sonata and Trileptal. TECHNIQUE: Routine electroencephalogram performed with [employer] technology. Electrodes were applied. According to a 10-20 International placement system: Impedances were less than 5 kilo Ohms. FINDINGS: During the awake state, background activity showed an average frequency of 11 Hz in the posterior head regions, normally reactive to eye opening and eye closure. In the anterior head region, frequency were in the better range. Drowsiness was characterized by diffuse bilateral attenuation with frequencies dropping into the 4-5 Hz range. Sleep was not seen. Hyperventilation was performed and there was symmetric bilateral slowing without evidence of lateralizing features. Photic stimulation was performed and there were symmetric bioccipital driving at different flash frequencies. IMPRESSION: This is a normal, awake; and drowsy electroencephalogram. Alden Crooks MD
--- NOTE | 2018-08-03 08:23 | CP.PCM.PN ---
Subjective - Date & Time of Evaluation Date of Evaluation: 08/03/18 Time of Evaluation: 10:00 - Subjective Subjective: PGY-1 Denise Lanier D.O. Neurology consult note for Dr. Garcia's service: Patient is seen and examined this morning. No seizure activity observed. Patient does not have any acute complaints. Objective - Vital Signs/Intake and Output Vital Signs (last 24 hours): Temp Pulse Resp BP Pulse Ox 97.4 F L 73 20 109/56 L 100 08/03/18 07:00 08/03/18 07:00 08/03/18 07:00 08/03/18 07:00 07/27/18 03:06 - Medications Medications: Current Medications Acetaminophen (Tylenol 325mg Tab) 650 mg PO Q4H PRN PRN Reason: Pain, Mild (1-3) Al Hydrox/Mg Hydrox/Simethicone (Maalox Plus 30 Ml) 30 ml PO DAILY PRN PRN Reason: Upset Stomach Clonazepam (Klonopin) 0.25 mg PO AMHS GIRISH PRN Reason: Protocol Last Admin: 08/02/18 21:20 Dose: 0.25 mg Escitalopram Oxalate (Lexapro) 10 mg PO DAILY [facility] Last Admin: 08/02/18 09:40 Dose: 10 mg Magnesium Hydroxide (Milk Of Magnesia) 30 ml PO DAILY PRN PRN Reason: Constipation Multi-Ingredient Ointment (Prep-Hem) 0 ea TOP BID [facility] Last Admin: 08/02/18 15:57 Dose: 1 applic Nicotine (Nicoderm Cq) 1 patch TD DAILY [facility] Last Admin: 08/02/18 09:39 Dose: 1 patch Oxcarbazepine (Trileptal) 300 mg PO BID [facility] PRN Reason: Protocol Last Admin: 08/02/18 15:57 Dose: 300 mg Polyethylene Glycol (Miralax) 17 gm PO DAILY PRN PRN Reason: Constipation Quetiapine Fumarate (Seroquel) 100 mg PO HS GIRISH PRN Reason: Protocol Last Admin: 08/02/18 21:20 Dose: 100 mg Zaleplon (Sonata) 10 mg PO HS PRN PRN Reason: Insomnia Last Admin: 08/01/18 21:37 Dose: 10 mg - Constitutional Appears: Well, Non-toxic, No Acute Distress - Head Exam Head Exam: ATRAUMATIC, NORMAL INSPECTION, NORMOCEPHALIC - Eye Exam Eye Exam: EOMI, Normal appearance - ENT Exam ENT Exam: Mucous Membranes Moist - Neck Exam Neck Exam: Normal Inspection - Respiratory Exam Respiratory Exam: NORMAL BREATHING PATTERN - Rectal Exam Rectal Exam: Deferred - Extremities Exam Extremities Exam: Normal Inspection - Neurological Exam Neurological Exam: Alert, Awake, CN II-XII Intact, Normal Gait, Oriented x3 Neuro motor strength exam: Left Upper Extremity: 5, Right Upper Extremity: 5, Left Lower Extremity: 5, Right Lower Extremity: 5 - Psychiatric Exam Psychiatric exam: Normal Affect, Normal Mood - Skin Skin Exam: Dry, Intact, Normal Color, Warm Assessment and Plan - Assessment and Plan (Free Text) Assessment: Patient is a 33 yo male who is currently being treated in the psych unit for depression and SI/HI. He reports that he recently started having seizures after a period of many years (since 2009). According to patient's accounts, seizures seem consistent with alcohol and/or benzo withdrawal. Plan: Seizure disorder- likely 2/2 substance use (alcohol, benzo withdrawal) - CT head: no acute pathology - EEG: normal, no epileptiform activity seen - Trileptal 300 mg PO BID - Klonopin 0.25 mg PO BID - Recommend patient establish care with outpatient neurologist once discharged for continued management Depression, anxiety - Management per psychiatry - Currently on Lexapro 10 mg PO daily, Seroquel 50 mg PO QHS Neurology will sign off case at this time. Please re-consult if necessary. Recommend patient continue current antiseizure medications and establish outpatient care with a neurologist. Case was discussed with attending, Dr. Garcia.
[2018-08-03] MEDS: Hemorrohoidal Ointment (2 oz) TOP SCH ×2 (09:35→15:38)
--- NOTE | 2018-08-03 16:35 | PCM.PYCHPN ---
Psychiatric Progress Note - Psychiatric Progress Note Patient seen today, length of contact: 30 min Patient Chief Complaint: "Jero crushing from the concerta, I don't know what I am doing, I cannot concentrate" Problems Identified/Issues Discussed: Suicide/ homicide prevention, past psychiatric h/o, current psychiatric symptoms , medical problems, risk/benefits and alternatives of medications, medications compliance, coping strategies, substance abuse h/o, relapse prevention, importance of follow up with psychiatrist and therapist, discharge plan. Medical Problems: questionable seizure disorder Diagnostic Results: 07/26/18 22:59 07/26/18 22:59 Lab Results 07/29/18 08:15: RPR Nonreactive 07/29/18 08:15: HIV 1&2 Ag/Ab, 4th Gen Nonreactive, HPV High Risk Pending, HPV Low Risk Pending 07/27/18 06:30: RPR Nonreactive 07/27/18 06:30: TSH 3rd Generation 1.01 07/27/18 06:30: Fasting Glucose 116 H, Triglycerides 117, Cholesterol 202 H, LDL Cholesterol Direct 107, HDL Cholesterol 56 07/27/18 02:40: Urine Opiates Screen Negative, Urine Methadone Screen Negative, Ur Barbiturates Screen Negative, Ur Phencyclidine Scrn Negative, Ur Amphetamines Screen Negative, U Benzodiazepines Scrn Negative, U Oth Cocaine Metabols Negative, U Cannabinoids Screen Negative 07/27/18 02:40: Urine Color Yellow, Urine Appearance Clear, Urine pH 6.5, Ur Specific [place] 1.025, Urine Protein Trace H, Urine Glucose (UA) Negative, Urine Ketones Trace H, Urine Blood Negative, Urine Nitrate Negative, Urine Bilirubin Negative, Urine Urobilinogen 0.2, Ur Leukocyte Esterase Negative, Urine RBC 0 - 2, Urine WBC 0 - 2, Ur Epithelial Cells 0 - 2, Urine Bacteria Occ , Urine Other Mucus 07/26/18 22:59: Alcohol, Quantitative < 10 07/26/18 22:59: Salicylates < 1 L, Acetaminophen < 10.0 L 07/26/18 22:59: Sodium 143, Potassium 4.1, Chloride 105, Carbon Dioxide 28, Anion Gap 14, BUN 13, Creatinine 0.9, Est GFR ( Amer) > 60, Est GFR (Non- Af Amer) > 60, Random Glucose 88, Calcium 9.0, Magnesium 2.1, Total Bilirubin 0.5, AST 22, ALT 25, Alkaline Phosphatase 87, Total Creatine Kinase 75, Total Protein 7.0, Albumin 3.7, Globulin 3.2, Albumin/Globulin Ratio 1.1 07/26/18 22:59: WBC 9.9, RBC 4.62, Hgb 14.5, Hct 42.3, MCV 91.6, MCH 31.4, MCHC 34.3, RDW 12.6, Plt Count 339, MPV 9.6, Gran % 67.7, Lymph % (Auto) 25.3, [place] % (Auto) 5.3, Eos % (Auto) 1.4 L, Baso % (Auto) 0.3, Gran # 6.69 H, Lymph # ( Auto) 2.5, [place] # (Auto) 0.5, Eos # (Auto) 0.1, Baso # (Auto) 0.03 Vital Signs Temp Pulse Resp BP Pulse Ox 08/01/18 07:13 97.5 F L 65 20 104/65 07/31/18 15:39 80 114/61 07/31/18 07:15 98.2 F 72 20 117/68 07/30/18 16:00 83 121/79 07/30/18 07:04 97.7 F 72 20 122/75 07/29/18 16:49 78 20 120/61 07/29/18 07:11 98.1 F 71 20 95/61 L 07/28/18 15:03 96 H 121/73 07/28/18 07:12 97.4 F L 67 20 109/62 07/27/18 16:20 72 20 110/72 07/27/18 07:12 98.0 F 68 20 101/62 07/27/18 04:31 98.7 F 20 123/71 07/27/18 04:10 20 07/27/18 03:06 98.2 F 85 16 132/70 100 07/26/18 23:30 98.2 F 30 L 16 135/85 100 EEG within normal limits DSM 5 Symptoms Update: Mr. Дмитрий Castellon is a single 33 year old, homeless -[place] male with a reported history of depression and anxiety, no history of SA, no current outpatient tx who presented to the emergency department complaining of depression and thoughts to harm his former 70 year old boyfriend who evicted him from their [place] apartment a month ago. Patient reported he had a lot of anger towards this exbf who had also apparently thrown out his belongings. Patient admitted that he had thoughts of killing himself and burning down his ex -boyfriend's home so he went to the [facility] upon his friend's advice. patient was seen today at the treatment team room with medical students, patient reported "I am crushing badly from the concerta" office note patient was admitted on July 28, started to claim that he has withdrawal symptoms on the fifth day of admission, which is very questionable, as per staff patient has very good appetite, vital signs are stable, patient does not have any physical signs of any withdrawals. At the same time patient affect was reactive, mood incongruent, patient was smiling when he was talking about uncomfortable feelings.. pt still has labile affect, as per RN pt claimed to be "very agitated", this proposal manager writer offered PO geodon and ativan with good effect. no behavioral issues, last time pt verbalized thoughts of harming his ex- boyfriend was at the time of admission, off note his ex-boyfriend has restraining order against pt. Diagnostic Results: Adjustment disorder with mixed depression and anxiety RUFUS Panic Disorder by hx ADHD by hx r/o Major Depression, severe without psychotic features r/o Borderline Personality Disorder Medication Change: No (Seroquel increased to 100 mg at the nighttime) Medical Record Reviewed: Yes Consults ordered or reviewed: neurology consult was called by discussed with fashion buying internship Patient was seen by neurology team, consultation appreciated, patient had EEG, waiting for results back. most likely seizures are related to alcohol and benzodiazepines withdrawals. Mental Status Examination - Cognitive Function Orientation: Person, Place, Situation, Time Memory: Intact Attention: Poor Concentration: Poor Association: WNL Fund of Knowledge: WNL - Mood Mood: Depressed, Anxious - Affect Affect: Constricted - Formal Thought Process Formal Thought Process: Circumstantial - Suicidal Ideation Suicidal Ideation: No - Homicidal Ideation Homicidal Ideation: No Goal/Treatment Plan - Goal/Treatment Plan Need for Continued Stay: Remain at risks for inpatient hospitalization, Severe depression anxiety, Discharge may exacerbated symptoms, Severe functional impairment Progress Toward Problem(s) and Goals/Treatment Plan: group, milieu and supportive tx Lexapro 10 mg po daily on 07/28/18 for depression and anxiety klonopin 0.25 mg AM/HS on 07/30/18. Patient believes klonopin was more effective than ativan for his anxiety d/c Sonata seroquel 100mg po hs for mood stabilization Nicotine patch 21 mg daily Appreciate f/u by Dr. Vogel/Dr. Cruz on 07/28/18~Topical cream, sitz baths, miralax prn for Hemorrhoids, pending HIV, HPV, GC/Chlamydia, HSV, RPR blood tests for anal tags/warts, c/w trileptal and ativan for hx of seizures and signed off NEUROLOGY CONSULT REQUESTED by Dr. Ballard, discussed with fashion buying internship 08/01/18, most likely seizures related to alcohol and benzos withdrawals Patient reported he started having seizures in the past 1-2 months. Medical student confirmed that patient was prescribe trileptal 300 mg po bid by Dr. 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 Of note: patient has been denying any further thoughts to harm himself or his exbf while on the unit. Boyfriend had been contacted by [employer] [facility] [employer] when patient presented there a few weeks ago. He informed the clinician that he had a restraining order on this patient. Family involvement Follow up on labs Will monitor closely SW evaluation for d/c planning, pt said that he has some savings and he can rent a room or stay in the hotel Pt was educated about risk/benefits and alternatives of medications, coping strategies (safety plan, suicide prevention), relapse prevention, importance of follow up with psychiatrist and therapist, stay away from drugs/alcohol/smoking Estimated Date of D/C: 08/04/18
[2018-08-04] MEDS: Hemorrohoidal Ointment (2 oz) TOP SCH ×2 (08:26→17:01)
--- NOTE | 2018-08-04 10:42 | PCM.BM ---
<Salvador Leong - Last Filed: 08/04/18 10:41> Treatment Plan Problems - Problems identified on initial assessmt SUICIDAL IDEATION Date Initiated: 07/27/18 Time Initiated: 05:00 Status: Active Priority: 1 HOMICIDAL IDEATION Date Initiated: 07/27/18 Time Initiated: 05:00 Assessment reference: NA Status: Active Priority: 2 INEFFECTIVE COPING Date Initiated: 07/27/18 Time Initiated: 17:00 Assessment reference: NA Status: Active Priority: 3 Treatment assets and liabiliti Patient Assests: cooperative, educated, motivated, self-reliant, ADL independent , physically healthy, good support system, negotiates basic needs, financial stabiity, cognitively intact Patient Liabilities: live alone, financial problems, relationship conflicts, medical problems - Milieu Protocol Milieu Narrative: group, milieu and supportive tx Lexapro 10 mg po daily on 07/28/18 for depression and anxiety klonopin 0.25 mg AM/HS on 07/30/18. Patient believes klonopin was more effective than ativan for his anxiety d/c Sonata seroquel 100mg po hs for mood stabilization Nicotine patch 21 mg daily Appreciate f/u by Dr. Vogel/Dr. Cruz on 07/28/18~Topical cream, sitz baths, miralax prn for Hemorrhoids, pending HIV, HPV, GC/Chlamydia, HSV, RPR blood tests for anal tags/warts, c/w trileptal and ativan for hx of seizures and signed off NEUROLOGY CONSULT REQUESTED by Dr. Ballard, discussed with video intern 08/01/18, most likely seizures related to alcohol and benzos withdrawals Patient reported he started having seizures in the past 1-2 months. Medical student confirmed that patient was prescribe trileptal 300 mg po bid by Dr. 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 Of note: patient has been denying any further thoughts to harm himself or his exbf while on the unit. Boyfriend had been contacted by [facility] when patient presented there a few weeks ago. He informed the clinician that he had a restraining order on this patient. Family involvement Follow up on labs Will monitor closely SW evaluation for d/c planning, pt said that he has some savings and he can rent a room or stay in the hotel Pt was educated about risk/benefits and alternatives of medications, coping strategies (safety plan, suicide prevention), relapse prevention, importance of follow up with psychiatrist and therapist, stay away from drugs/alcohol/smoking Family Contact Family involvement: Famliy/SO not involved Discharge/Continuing Care - Treatment Team Participation Patient/Family/SO Statement: group, milieu and supportive tx Lexapro 10 mg po daily on 07/28/18 for depression and anxiety klonopin 0.25 mg AM/HS on 07/30/18. Patient believes klonopin was more effective than ativan for his anxiety d/c Sonata seroquel 100mg po hs for mood stabilization Nicotine patch 21 mg daily Appreciate f/u by Dr. Vogel/Dr. Cruz on 07/28/18~Topical cream, sitz baths, miralax prn for Hemorrhoids, pending HIV, HPV, GC/Chlamydia, HSV, RPR blood tests for anal tags/warts, c/w trileptal and ativan for hx of seizures and signed off NEUROLOGY CONSULT REQUESTED by Dr. Ballard, discussed with video intern 08/01/18, most likely seizures related to alcohol and benzos withdrawals Patient reported he started having seizures in the past 1-2 months. Medical student confirmed that patient was prescribe trileptal 300 mg po bid by Dr. 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 Of note: patient has been denying any further thoughts to harm himself or his exbf while on the unit. Boyfriend had been contacted by [facility] when patient presented there a few weeks ago. He informed the clinician that he had a restraining order on this patient. Family involvement Follow up on labs Will monitor closely SW evaluation for d/c planning, pt said that he has some savings and he can rent a room or stay in the hotel Pt was educated about risk/benefits and alternatives of medications, coping strategies (safety plan, suicide prevention), relapse prevention, importance of follow up with psychiatrist and therapist, stay away from drugs/alcohol/smoking Treatment Plan Review - Problem SUICIDAL IDEATION Time Initiated: 05:00 Progress toward outcomes: improved HOMICIDAL IDEATION Time Initiated: 05:00 Progress toward outcomes: improved INEFFECTIVE COPING Time Initiated: 17:00 Progress toward outcomes: improved <Chapis Rdz - Last Filed: 08/04/18 13:22> - Diagnosis (1) Depression Status: Acute Interventions: 07/27/18 10:44 Lexapro 20 mg po daily for depression and anxiety * Ativan increased to 2 mg twice a day plus Geodon formal stabilization * Sonata 5 mg po HS prn: insomnia * safety plan * Psychoeducation Psychopharmacology/adjustment of medications as needed/ monitoring possible side effects Evaluate pt on daily basis Compliance with medications and follow up appointments Suicide and homicide risk assessment and prevention Relapse prevention Reduction of symptoms Improve functional status Family involvement As outpatient: cognitive behavioral therapy 08/04/18 13:22 no signs of agitation, patient denied any thoughts of harming himself or others , impulses are better controlled <Katherine Chacko - Last Filed: 08/04/18 14:10> Family Contact Family involvement: Famliy/SO not involved
--- NOTE | 2018-08-04 13:27 | PCM.PYCHPN ---
Psychiatric Progress Note - Psychiatric Progress Note Patient seen today, length of contact: 30 min Patient Chief Complaint: "I was agitated, Geodon and Ativan helped me, can you change Seroquel 4 Geodon? , I still feel very agitated, I know that I need to let nurse know, this is what i did yesterday..." Problems Identified/Issues Discussed: Suicide/ homicide prevention, past psychiatric h/o, current psychiatric symptoms , medical problems, risk/benefits and alternatives of medications, medications compliance, coping strategies, substance abuse h/o, relapse prevention, importance of follow up with psychiatrist and therapist, discharge plan. Medical Problems: questionable seizure disorder Diagnostic Results: 07/26/18 22:59 07/26/18 22:59 Lab Results 07/29/18 08:15: RPR Nonreactive 07/29/18 08:15: HIV 1&2 Ag/Ab, 4th Gen Nonreactive, HPV High Risk Pending, HPV Low Risk Pending 07/27/18 06:30: RPR Nonreactive 07/27/18 06:30: TSH 3rd Generation 1.01 07/27/18 06:30: Fasting Glucose 116 H, Triglycerides 117, Cholesterol 202 H, LDL Cholesterol Direct 107, HDL Cholesterol 56 07/27/18 02:40: Urine Opiates Screen Negative, Urine Methadone Screen Negative, Ur Barbiturates Screen Negative, Ur Phencyclidine Scrn Negative, Ur Amphetamines Screen Negative, U Benzodiazepines Scrn Negative, U Oth Cocaine Metabols Negative, U Cannabinoids Screen Negative 07/27/18 02:40: Urine Color Yellow, Urine Appearance Clear, Urine pH 6.5, Ur Specific [place] 1.025, Urine Protein Trace H, Urine Glucose (UA) Negative, Urine Ketones Trace H, Urine Blood Negative, Urine Nitrate Negative, Urine Bilirubin Negative, Urine Urobilinogen 0.2, Ur Leukocyte Esterase Negative, Urine RBC 0 - 2, Urine WBC 0 - 2, Ur Epithelial Cells 0 - 2, Urine Bacteria Occ , Urine Other Mucus 07/26/18 22:59: Alcohol, Quantitative < 10 07/26/18 22:59: Salicylates < 1 L, Acetaminophen < 10.0 L 07/26/18 22:59: Sodium 143, Potassium 4.1, Chloride 105, Carbon Dioxide 28, Anion Gap 14, BUN 13, Creatinine 0.9, Est GFR ( Amer) > 60, Est GFR (Non- Af Amer) > 60, Random Glucose 88, Calcium 9.0, Magnesium 2.1, Total Bilirubin 0.5, AST 22, ALT 25, Alkaline Phosphatase 87, Total Creatine Kinase 75, Total Protein 7.0, Albumin 3.7, Globulin 3.2, Albumin/Globulin Ratio 1.1 07/26/18 22:59: WBC 9.9, RBC 4.62, Hgb 14.5, Hct 42.3, MCV 91.6, MCH 31.4, MCHC 34.3, RDW 12.6, Plt Count 339, MPV 9.6, Gran % 67.7, Lymph % (Auto) 25.3, [place] % (Auto) 5.3, Eos % (Auto) 1.4 L, Baso % (Auto) 0.3, Gran # 6.69 H, Lymph # ( Auto) 2.5, [place] # (Auto) 0.5, Eos # (Auto) 0.1, Baso # (Auto) 0.03 Vital Signs Temp Pulse Resp BP Pulse Ox 08/01/18 07:13 97.5 F L 65 20 104/65 07/31/18 15:39 80 114/61 07/31/18 07:15 98.2 F 72 20 117/68 07/30/18 16:00 83 121/79 07/30/18 07:04 97.7 F 72 20 122/75 07/29/18 16:49 78 20 120/61 07/29/18 07:11 98.1 F 71 20 95/61 L 07/28/18 15:03 96 H 121/73 07/28/18 07:12 97.4 F L 67 20 109/62 07/27/18 16:20 72 20 110/72 07/27/18 07:12 98.0 F 68 20 101/62 07/27/18 04:31 98.7 F 20 123/71 07/27/18 04:10 20 07/27/18 03:06 98.2 F 85 16 132/70 100 07/26/18 23:30 98.2 F 30 L 16 135/85 100 EEG within normal limits DSM 5 Symptoms Update: Mr. Дмитрий Castellon is a single 33 year old, homeless -[place] male with a reported history of depression and anxiety, no history of SA, no current outpatient tx who presented to the emergency department complaining of depression and thoughts to harm his former 70 year old boyfriend who evicted him from their [place] apartment a month ago. Patient reported he had a lot of anger towards this exbf who had also apparently thrown out his belongings. Patient admitted that he had thoughts of killing himself and burning down his ex -boyfriend's home so he went to the [facility] upon his friend's advice. patient was seen today at the treatment team meeting, patient reported "I am crushing badly from the concerta, third day is the worst day" office note patient was admitted on July 28, started to claim that he has withdrawal symptoms on the fifth day of admission, which is very questionable, as per staff patient has very good appetite, vital signs are stable, patient does not have any physical signs of any withdrawals. At the same time patient affect was reactive, mood incongruent, patient was smiling when he was talking about uncomfortable feelings.. 08/03/18 as per RN pt claimed to be "very agitated", this bond underwriter offered PO geodon and ativan with good effect. ppatient asks Seroquel to be discontinued and Geodon and Ativan will be given to him as scheduled doses, patient contracted for safety, patient denied any thoughts of killing others or killing himself. Patient was calm, corporative, agreed to increase Lexapro as well. no behavioral issues, last time pt verbalized thoughts of harming his ex- boyfriend was at the time of admission, off note his ex-boyfriend has restraining order against pt. so far patient tolerates medications well, no side effects observed or reported , aims 0, no EPS. Diagnostic Results: Adjustment disorder with mixed depression and anxiety RUFUS Panic Disorder by hx ADHD by hx r/o Major Depression, severe without psychotic features r/o Borderline Personality Disorder Medication Change: Yes (Lexapro increased, Geodon and Ativan started scheduled, Seroquel discontinu) Medical Record Reviewed: Yes Mental Status Examination - Cognitive Function Orientation: Person, Place, Situation, Time Memory: Intact Attention: Poor Concentration: Poor Association: WNL Fund of Knowledge: WNL - Mood Mood: Depressed, Anxious - Affect Affect: Constricted - Formal Thought Process Formal Thought Process: Circumstantial - Suicidal Ideation Suicidal Ideation: No - Homicidal Ideation Homicidal Ideation: No Goal/Treatment Plan - Goal/Treatment Plan Need for Continued Stay: Remain at risks for inpatient hospitalization, Severe depression anxiety, Discharge may exacerbated symptoms, Severe functional impairment Progress Toward Problem(s) and Goals/Treatment Plan: group, milieu and supportive tx Lexapro 20 mg po daily on 07/28/18 for depression and anxiety klonopin discontinued Ativan plus Geodon twice a day scheduled d/c Sonata seroquel discontinued Nicotine patch 21 mg daily Appreciate f/u by Dr. Vogel/Dr. Cruz on 07/28/18~Topical cream, sitz baths, miralax prn for Hemorrhoids, pending HIV, HPV, GC/Chlamydia, HSV, RPR blood tests for anal tags/warts, c/w trileptal and ativan for hx of seizures and signed off NEUROLOGY CONSULT REQUESTED by Dr. Ballard, discussed with customer operations intern 08/01/18, most likely seizures related to alcohol and benzos withdrawals Patient reported he started having seizures in the past 1-2 months. Medical student confirmed that patient was prescribe trileptal 300 mg po bid by Dr. 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 Boyfriend had been contacted by [facility] corrections specialist when patient presented there a few weeks ago. He informed the clinician that he had a restraining order on this patient. Family involvement Follow up on labs Will monitor closely SW evaluation for d/c planning, pt said that he has some savings and he can rent a room or stay in the hotel Pt was educated about risk/benefits and alternatives of medications, coping strategies (safety plan, suicide prevention), relapse prevention, importance of follow up with psychiatrist and therapist, stay away from drugs/alcohol/smoking Estimated Date of D/C: 08/07/18
--- NOTE | 2018-08-05 09:48 | PCM.PYCHPN ---
Psychiatric Progress Note - Psychiatric Progress Note Patient seen today, length of contact: 30 min Problems Identified/Issues Discussed: PROGRESS NOTE I reviewed recent notes and met with patient at bedside. Patient continues to present as pleasant, friendly and well-oriented to month, year, location and circumstances. He has been calm and cooperative on the unit without any evidence of perceptual disturbance. Patient can communicate his needs well. Patient currently denies any side effects from his medications or any new discomfort or pain. Patient reports that he is feeling better since admission, more hopeful than hopeless. Patient has been visible and participating in unit activities. He can tolerate group settings with evidence of anger or agitation. Continues to deny any SI or HI. There have been no behavioral issues thus far. Diagnostic Results: Adjustment disorder with mixed depression and anxiety RUFUS Panic Disorder by hx ADHD by hx r/o Major Depression, severe without psychotic features r/o Borderline Personality Disorder Medication Change: Yes (Lexapro increased, Geodon and Ativan started scheduled, Seroquel discontinu) Medical Record Reviewed: Yes Mental Status Examination - Cognitive Function Orientation: Person, Place, Situation, Time Memory: Intact Attention: WNL Concentration: WNL Association: WNL Fund of Knowledge: WNL - Mood Mood: Depressed (better), Anxious - Affect Affect: Broad - Speech Speech: Appropriate - Formal Thought Process Formal Thought Process: No Impairment - Suicidal Ideation Suicidal Ideation: No - Homicidal Ideation Homicidal Ideation: No Goal/Treatment Plan - Goal/Treatment Plan Need for Continued Stay: Remain at risks for inpatient hospitalization, Severe depression anxiety, Discharge may exacerbated symptoms, Severe functional impairment Progress Toward Problem(s) and Goals/Treatment Plan: * c/w current tx and plan * Vitals reviewed and noted below: Selected Entries 08/04/18 08/04/18 07:08 16:00 Temperature 98.1 F Pulse Rate 65 85 Respiratory 20 Rate Blood Pressure 100/56 L 109/63 * Admission labs noted below: Laboratory Tests 07/26/18 07/26/18 07/26/18 22:59 22:59 22:59 WBC 9.9 RBC 4.62 Hgb 14.5 Hct 42.3 MCV 91.6 MCH 31.4 MCHC 34.3 RDW 12.6 Plt Count 339 MPV 9.6 Gran % 67.7 Lymph % (Auto) 25.3 [place] % (Auto) 5.3 Eos % (Auto) 1.4 L Baso % (Auto) 0.3 Gran # 6.69 H Lymph # (Auto) 2.5 [place] # (Auto) 0.5 Eos # (Auto) 0.1 Baso # (Auto) 0.03 Sodium 143 Potassium 4.1 Chloride 105 Carbon Dioxide 28 Anion Gap 14 BUN 13 Creatinine 0.9 Est GFR ( Amer) > 60 Est GFR (Non-Af Amer) > 60 Random Glucose 88 Fasting Glucose Calcium 9.0 Magnesium 2.1 Total Bilirubin 0.5 AST 22 ALT 25 Alkaline Phosphatase 87 Total Creatine Kinase 75 Total Protein 7.0 Albumin 3.7 Globulin 3.2 Albumin/Globulin Ratio 1.1 Triglycerides Cholesterol LDL Cholesterol Direct HDL Cholesterol TSH 3rd Generation Urine Color Urine Appearance Urine pH Ur Specific [place] Urine Protein Urine Glucose (UA) Urine Ketones Urine Blood Urine Nitrate Urine Bilirubin Urine Urobilinogen Ur Leukocyte Esterase Urine RBC Urine WBC Ur Epithelial Cells Urine Bacteria Urine Other Salicylates < 1 L Urine Opiates Screen Urine Methadone Screen Acetaminophen < 10.0 L Ur Barbiturates Screen Ur Phencyclidine Scrn Ur Amphetamines Screen U Benzodiazepines Scrn U Oth Cocaine Metabols U Cannabinoids Screen Alcohol, Quantitative 07/26/18 07/27/18 07/27/18 22:59 02:40 02:40 WBC RBC Hgb Hct MCV MCH MCHC RDW Plt Count MPV Gran % Lymph % (Auto) [place] % (Auto) Eos % (Auto) Baso % (Auto) Gran # Lymph # (Auto) [place] # (Auto) Eos # (Auto) Baso # (Auto) Sodium Potassium Chloride Carbon Dioxide Anion Gap BUN Creatinine Est GFR ( Amer) Est GFR (Non-Af Amer) Random Glucose Fasting Glucose Calcium Magnesium Total Bilirubin AST ALT Alkaline Phosphatase Total Creatine Kinase Total Protein Albumin Globulin Albumin/Globulin Ratio Triglycerides Cholesterol LDL Cholesterol Direct HDL Cholesterol TSH 3rd Generation Urine Color Yellow Urine Appearance Clear Urine pH 6.5 Ur Specific [place] 1.025 Urine Protein Trace H Urine Glucose (UA) Negative Urine Ketones Trace H Urine Blood Negative Urine Nitrate Negative Urine Bilirubin Negative Urine Urobilinogen 0.2 Ur Leukocyte Esterase Negative Urine RBC 0 - 2 Urine WBC 0 - 2 Ur Epithelial Cells 0 - 2 Urine Bacteria Occ Urine Other Mucus Salicylates Urine Opiates Screen Negative Urine Methadone Screen Negative Acetaminophen Ur Barbiturates Screen Negative Ur Phencyclidine Scrn Negative Ur Amphetamines Screen Negative U Benzodiazepines Scrn Negative U Oth Cocaine Metabols Negative U Cannabinoids Screen Negative Alcohol, Quantitative < 10 07/27/18 07/27/18 06:30 06:30 WBC RBC Hgb Hct MCV MCH MCHC RDW Plt Count MPV Gran % Lymph % (Auto) [place] % (Auto) Eos % (Auto) Baso % (Auto) Gran # Lymph # (Auto) [place] # (Auto) Eos # (Auto) Baso # (Auto) Sodium Potassium Chloride Carbon Dioxide Anion Gap BUN Creatinine Est GFR ( Amer) Est GFR (Non-Af Amer) Random Glucose Fasting Glucose 116 H Calcium Magnesium Total Bilirubin AST ALT Alkaline Phosphatase Total Creatine Kinase Total Protein Albumin Globulin Albumin/Globulin Ratio Triglycerides 117 Cholesterol 202 H LDL Cholesterol Direct 107 HDL Cholesterol 56 TSH 3rd Generation 1.01 Urine Color Urine Appearance Urine pH Ur Specific [place] Urine Protein Urine Glucose (UA) Urine Ketones Urine Blood Urine Nitrate Urine Bilirubin Urine Urobilinogen Ur Leukocyte Esterase Urine RBC Urine WBC Ur Epithelial Cells Urine Bacteria Urine Other Salicylates Urine Opiates Screen Urine Methadone Screen Acetaminophen Ur Barbiturates Screen Ur Phencyclidine Scrn Ur Amphetamines Screen U Benzodiazepines Scrn U Oth Cocaine Metabols U Cannabinoids Screen Alcohol, Quantitative Estimated Date of D/C: 08/07/18
[2018-08-05] MEDS: Hemorrohoidal Ointment (2 oz) TOP SCH ×2 (10:09→16:55)
[2018-08-06] MEDS: Hemorrohoidal Ointment (2 oz) TOP SCH ×2 (09:01→16:14)
--- NOTE | 2018-08-06 10:13 | PCM.PYCHPN ---
Psychiatric Progress Note - Psychiatric Progress Note Patient seen today, length of contact: 30 min Problems Identified/Issues Discussed: PROGRESS NOTE I reviewed recent notes and met with patient at bedside. Patient continues to present as pleasant, friendly and well-oriented to month, year, location and circumstances. He has been calm and cooperative on the unit without any evidence of perceptual disturbance. Patient can communicate his needs well. Patient currently denies any side effects from his medications or any new discomfort or pain. Patient reports that he is feeling better since admission and that he feels more hopeful than hopeless. He feels comfortable about discharge tomorrow and denies any new concerns in this respect. Patient has been visible and participating in unit activities. He can tolerate group settings with evidence of anger or agitation. Continues to deny any SI or HI (specifically denies HI towards his exbf). There have been no behavioral issues over the weekend. Diagnostic Results: Adjustment disorder with mixed depression and anxiety RUFUS Panic Disorder by hx ADHD by hx r/o Major Depression, severe without psychotic features r/o Borderline Personality Disorder Medication Change: Yes (Lexapro increased, Geodon and Ativan started scheduled, Seroquel discontinu) Medical Record Reviewed: Yes Mental Status Examination - Cognitive Function Orientation: Person, Place, Situation, Time Memory: Intact Attention: WNL Concentration: WNL Association: WNL Fund of Knowledge: WNL - Mood Mood: Depressed (better), Anxious - Affect Affect: Broad (and pleasant) - Speech Speech: Appropriate - Formal Thought Process Formal Thought Process: No Impairment - Suicidal Ideation Suicidal Ideation: No - Homicidal Ideation Homicidal Ideation: No Goal/Treatment Plan - Goal/Treatment Plan Need for Continued Stay: Remain at risks for inpatient hospitalization, Severe depression anxiety, Discharge may exacerbated symptoms, Severe functional impairment Progress Toward Problem(s) and Goals/Treatment Plan: * c/w current tx and plan * Vitals reviewed and noted below: Selected Entries 08/05/18 08:01 Temperature 97.9 F Pulse Rate 67 Respiratory 16 Rate Blood Pressure 101/61 * Admission labs noted below: Laboratory Tests 07/26/18 07/26/18 07/26/18 22:59 22:59 22:59 WBC 9.9 RBC 4.62 Hgb 14.5 Hct 42.3 MCV 91.6 MCH 31.4 MCHC 34.3 RDW 12.6 Plt Count 339 MPV 9.6 Gran % 67.7 Lymph % (Auto) 25.3 [place] % (Auto) 5.3 Eos % (Auto) 1.4 L Baso % (Auto) 0.3 Gran # 6.69 H Lymph # (Auto) 2.5 [place] # (Auto) 0.5 Eos # (Auto) 0.1 Baso # (Auto) 0.03 Sodium 143 Potassium 4.1 Chloride 105 Carbon Dioxide 28 Anion Gap 14 BUN 13 Creatinine 0.9 Est GFR ( Amer) > 60 Est GFR (Non-Af Amer) > 60 Random Glucose 88 Fasting Glucose Calcium 9.0 Magnesium 2.1 Total Bilirubin 0.5 AST 22 ALT 25 Alkaline Phosphatase 87 Total Creatine Kinase 75 Total Protein 7.0 Albumin 3.7 Globulin 3.2 Albumin/Globulin Ratio 1.1 Triglycerides Cholesterol LDL Cholesterol Direct HDL Cholesterol TSH 3rd Generation Urine Color Urine Appearance Urine pH Ur Specific [place] Urine Protein Urine Glucose (UA) Urine Ketones Urine Blood Urine Nitrate Urine Bilirubin Urine Urobilinogen Ur Leukocyte Esterase Urine RBC Urine WBC Ur Epithelial Cells Urine Bacteria Urine Other Salicylates < 1 L Urine Opiates Screen Urine Methadone Screen Acetaminophen < 10.0 L Ur Barbiturates Screen Ur Phencyclidine Scrn Ur Amphetamines Screen U Benzodiazepines Scrn U Oth Cocaine Metabols U Cannabinoids Screen Alcohol, Quantitative 07/26/18 07/27/18 07/27/18 22:59 02:40 02:40 WBC RBC Hgb Hct MCV MCH MCHC RDW Plt Count MPV Gran % Lymph % (Auto) [place] % (Auto) Eos % (Auto) Baso % (Auto) Gran # Lymph # (Auto) [place] # (Auto) Eos # (Auto) Baso # (Auto) Sodium Potassium Chloride Carbon Dioxide Anion Gap BUN Creatinine Est GFR ( Amer) Est GFR (Non-Af Amer) Random Glucose Fasting Glucose Calcium Magnesium Total Bilirubin AST ALT Alkaline Phosphatase Total Creatine Kinase Total Protein Albumin Globulin Albumin/Globulin Ratio Triglycerides Cholesterol LDL Cholesterol Direct HDL Cholesterol TSH 3rd Generation Urine Color Yellow Urine Appearance Clear Urine pH 6.5 Ur Specific [place] 1.025 Urine Protein Trace H Urine Glucose (UA) Negative Urine Ketones Trace H Urine Blood Negative Urine Nitrate Negative Urine Bilirubin Negative Urine Urobilinogen 0.2 Ur Leukocyte Esterase Negative Urine RBC 0 - 2 Urine WBC 0 - 2 Ur Epithelial Cells 0 - 2 Urine Bacteria Occ Urine Other Mucus Salicylates Urine Opiates Screen Negative Urine Methadone Screen Negative Acetaminophen Ur Barbiturates Screen Negative Ur Phencyclidine Scrn Negative Ur Amphetamines Screen Negative U Benzodiazepines Scrn Negative U Oth Cocaine Metabols Negative U Cannabinoids Screen Negative Alcohol, Quantitative < 10 07/27/18 07/27/18 06:30 06:30 WBC RBC Hgb Hct MCV MCH MCHC RDW Plt Count MPV Gran % Lymph % (Auto) [place] % (Auto) Eos % (Auto) Baso % (Auto) Gran # Lymph # (Auto) [place] # (Auto) Eos # (Auto) Baso # (Auto) Sodium Potassium Chloride Carbon Dioxide Anion Gap BUN Creatinine Est GFR ( Amer) Est GFR (Non-Af Amer) Random Glucose Fasting Glucose 116 H Calcium Magnesium Total Bilirubin AST ALT Alkaline Phosphatase Total Creatine Kinase Total Protein Albumin Globulin Albumin/Globulin Ratio Triglycerides 117 Cholesterol 202 H LDL Cholesterol Direct 107 HDL Cholesterol 56 TSH 3rd Generation 1.01 Urine Color Urine Appearance Urine pH Ur Specific [place] Urine Protein Urine Glucose (UA) Urine Ketones Urine Blood Urine Nitrate Urine Bilirubin Urine Urobilinogen Ur Leukocyte Esterase Urine RBC Urine WBC Ur Epithelial Cells Urine Bacteria Urine Other Salicylates Urine Opiates Screen Urine Methadone Screen Acetaminophen Ur Barbiturates Screen Ur Phencyclidine Scrn Ur Amphetamines Screen U Benzodiazepines Scrn U Oth Cocaine Metabols U Cannabinoids Screen Alcohol, Quantitative Estimated Date of D/C: 08/07/18
[2018-08-07] MEDS: Hemorrohoidal Ointment (2 oz) TOP SCH ×2 (09:28→16:59)
--- NOTE | 2018-08-07 17:18 | PCM.PYCHPN ---
Psychiatric Progress Note - Psychiatric Progress Note Patient seen today, length of contact: 30 min Patient Chief Complaint: "I feel agitated, my smile is misleading" Problems Identified/Issues Discussed: Suicide/ homicide prevention, past psychiatric h/o, current psychiatric symptoms , medical problems, risk/benefits and alternatives of medications, medications compliance, coping strategies, substance abuse h/o, relapse prevention, importance of follow up with psychiatrist and therapist, discharge plan. Medical Problems: questionable seizure disorder Diagnostic Results: 07/26/18 22:59 07/26/18 22:59 Lab Results 07/29/18 08:15: RPR Nonreactive 07/29/18 08:15: HIV 1&2 Ag/Ab, 4th Gen Nonreactive, HPV High Risk Pending, HPV Low Risk Pending 07/27/18 06:30: RPR Nonreactive 07/27/18 06:30: TSH 3rd Generation 1.01 07/27/18 06:30: Fasting Glucose 116 H, Triglycerides 117, Cholesterol 202 H, LDL Cholesterol Direct 107, HDL Cholesterol 56 07/27/18 02:40: Urine Opiates Screen Negative, Urine Methadone Screen Negative, Ur Barbiturates Screen Negative, Ur Phencyclidine Scrn Negative, Ur Amphetamines Screen Negative, U Benzodiazepines Scrn Negative, U Oth Cocaine Metabols Negative, U Cannabinoids Screen Negative 07/27/18 02:40: Urine Color Yellow, Urine Appearance Clear, Urine pH 6.5, Ur Specific [place] 1.025, Urine Protein Trace H, Urine Glucose (UA) Negative, Urine Ketones Trace H, Urine Blood Negative, Urine Nitrate Negative, Urine Bilirubin Negative, Urine Urobilinogen 0.2, Ur Leukocyte Esterase Negative, Urine RBC 0 - 2, Urine WBC 0 - 2, Ur Epithelial Cells 0 - 2, Urine Bacteria Occ , Urine Other Mucus 07/26/18 22:59: Alcohol, Quantitative < 10 07/26/18 22:59: Salicylates < 1 L, Acetaminophen < 10.0 L 07/26/18 22:59: Sodium 143, Potassium 4.1, Chloride 105, Carbon Dioxide 28, Anion Gap 14, BUN 13, Creatinine 0.9, Est GFR ( Amer) > 60, Est GFR (Non- Af Amer) > 60, Random Glucose 88, Calcium 9.0, Magnesium 2.1, Total Bilirubin 0.5, AST 22, ALT 25, Alkaline Phosphatase 87, Total Creatine Kinase 75, Total Protein 7.0, Albumin 3.7, Globulin 3.2, Albumin/Globulin Ratio 1.1 07/26/18 22:59: WBC 9.9, RBC 4.62, Hgb 14.5, Hct 42.3, MCV 91.6, MCH 31.4, MCHC 34.3, RDW 12.6, Plt Count 339, MPV 9.6, Gran % 67.7, Lymph % (Auto) 25.3, [place] % (Auto) 5.3, Eos % (Auto) 1.4 L, Baso % (Auto) 0.3, Gran # 6.69 H, Lymph # ( Auto) 2.5, [place] # (Auto) 0.5, Eos # (Auto) 0.1, Baso # (Auto) 0.03 Vital Signs Temp Pulse Resp BP Pulse Ox 08/01/18 07:13 97.5 F L 65 20 104/65 07/31/18 15:39 80 114/61 07/31/18 07:15 98.2 F 72 20 117/68 07/30/18 16:00 83 121/79 07/30/18 07:04 97.7 F 72 20 122/75 07/29/18 16:49 78 20 120/61 07/29/18 07:11 98.1 F 71 20 95/61 L 07/28/18 15:03 96 H 121/73 07/28/18 07:12 97.4 F L 67 20 109/62 07/27/18 16:20 72 20 110/72 07/27/18 07:12 98.0 F 68 20 101/62 07/27/18 04:31 98.7 F 20 123/71 07/27/18 04:10 20 07/27/18 03:06 98.2 F 85 16 132/70 100 07/26/18 23:30 98.2 F 30 L 16 135/85 100 EEG within normal limits DSM 5 Symptoms Update: Mr. Дмитрий Castellon is a single 33 year old, homeless -[place] male with a reported history of depression and anxiety, no history of SA, no current outpatient tx who presented to the emergency department complaining of depression and thoughts to harm his former 70 year old boyfriend who evicted him from their [place] apartment a month ago. Patient reported he had a lot of anger towards this exbf who had also apparently thrown out his belongings. Patient admitted that he had thoughts of killing himself and burning down his ex -boyfriend's home so he went to the [facility] upon his friend's advice. patient was seen today at the treatment team meeting, patient reported "I am crushing badly from the concerta, I feel agitated, my smile is very misleading" off note patient was admitted on July 27, started to claim that he has withdrawal symptoms on the fifth day of admission, which is very questionable, as per staff patient has very good appetite, vital signs are stable, patient does not have any physical signs of any withdrawals. At the same time patient affect was reactive, mood incongruent, patient was smiling when he was talking about uncomfortable feelings, "inner agitation", pt claims that coffee is helping him to concentrate, this sports book writer offered pt wellbutrin, but pt refused to take it claiming that "it will take long to act". 08/03/18 as per RN pt claimed to be "very agitated", this sports book writer offered PO geodon and ativan with good effect. pt currently wants to be weaned off from ativan. no behavioral issues, last time pt verbalized thoughts of harming his ex- boyfriend was at the time of admission, off note his ex-boyfriend has restraining order against pt. so far patient tolerates medications well, no side effects observed or reported , aims 0, no EPS. Diagnostic Results: Adjustment disorder with mixed depression and anxiety RUFUS Panic Disorder by hx ADHD by hx r/o Major Depression, severe without psychotic features r/o Borderline Personality Disorder Medication Change: Yes (ativan decreasesd) Medical Record Reviewed: Yes Consults ordered or reviewed: neurology consult was called by discussed with international trade specialist Patient was seen by neurology team, consultation appreciated, patient had EEG, waiting for results back. most likely seizures are related to alcohol and benzodiazepines withdrawals. Mental Status Examination - Cognitive Function Orientation: Person, Place, Situation, Time Memory: Intact Attention: WNL Concentration: WNL Association: WNL Fund of Knowledge: WNL - Mood Mood: Depressed ("I feel agitated" no signs), Anxious - Affect Affect: Broad (and pleasant) - Speech Speech: Appropriate - Formal Thought Process Formal Thought Process: No Impairment - Suicidal Ideation Suicidal Ideation: No - Homicidal Ideation Homicidal Ideation: No Goal/Treatment Plan - Goal/Treatment Plan Need for Continued Stay: Remain at risks for inpatient hospitalization, Severe depression anxiety, Discharge may exacerbated symptoms, Severe functional impairment Progress Toward Problem(s) and Goals/Treatment Plan: group, milieu and supportive tx Lexapro 20 mg po daily on 07/28/18 for depression and anxiety klonopin discontinued Ativan is on tapering dose seroquel discontinued geodon for mood stabilization Nicotine patch 21 mg daily Appreciate f/u by Dr. Vogel/Dr. Cruz on 07/28/18~Topical cream, sitz baths, miralax prn for Hemorrhoids, pending HIV, HPV, GC/Chlamydia, HSV, RPR blood tests for anal tags/warts, c/w trileptal and ativan for hx of seizures and signed off NEUROLOGY CONSULT REQUESTED by Dr. Ballard, discussed with international trade specialist 08/01/18, most likely seizures related to alcohol and benzos withdrawals Patient reported he started having seizures in the past 1-2 months. Medical student confirmed that patient was prescribe trileptal 300 mg po bid by Dr. 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 Of note: patient has been denying any further thoughts to harm himself or his exbf while on the unit. Boyfriend had been contacted by [facility] service administrator when patient presented there a few weeks ago. He informed the clinician that he had a restraining order on this patient. Family involvement Follow up on labs Will monitor closely SW evaluation for d/c planning, pt said that he has some savings and he can rent a room or stay in the hotel Pt was educated about risk/benefits and alternatives of medications, coping strategies (safety plan, suicide prevention), relapse prevention, importance of follow up with psychiatrist and therapist, stay away from drugs/alcohol/smoking Estimated Date of D/C: 08/09/18
[2018-08-08] MEDS: Hemorrohoidal Ointment (2 oz) TOP SCH ×2 (09:21→16:16)
--- NOTE | 2018-08-08 15:50 | PCM.PYCHPN ---
Psychiatric Progress Note - Psychiatric Progress Note Patient seen today, length of contact: 30 min Patient Chief Complaint: "I don't want to be on ativan, please decrease the dose" Problems Identified/Issues Discussed: Suicide/ homicide prevention, past psychiatric h/o, current psychiatric symptoms , medical problems, risk/benefits and alternatives of medications, medications compliance, coping strategies, substance abuse h/o, relapse prevention, importance of follow up with psychiatrist and therapist, discharge plan. Medical Problems: questionable seizure disorder Diagnostic Results: 07/26/18 22:59 07/26/18 22:59 Lab Results 07/29/18 08:15: RPR Nonreactive 07/29/18 08:15: HIV 1&2 Ag/Ab, 4th Gen Nonreactive, HPV High Risk Pending, HPV Low Risk Pending 07/27/18 06:30: RPR Nonreactive 07/27/18 06:30: TSH 3rd Generation 1.01 07/27/18 06:30: Fasting Glucose 116 H, Triglycerides 117, Cholesterol 202 H, LDL Cholesterol Direct 107, HDL Cholesterol 56 07/27/18 02:40: Urine Opiates Screen Negative, Urine Methadone Screen Negative, Ur Barbiturates Screen Negative, Ur Phencyclidine Scrn Negative, Ur Amphetamines Screen Negative, U Benzodiazepines Scrn Negative, U Oth Cocaine Metabols Negative, U Cannabinoids Screen Negative 07/27/18 02:40: Urine Color Yellow, Urine Appearance Clear, Urine pH 6.5, Ur Specific [place] 1.025, Urine Protein Trace H, Urine Glucose (UA) Negative, Urine Ketones Trace H, Urine Blood Negative, Urine Nitrate Negative, Urine Bilirubin Negative, Urine Urobilinogen 0.2, Ur Leukocyte Esterase Negative, Urine RBC 0 - 2, Urine WBC 0 - 2, Ur Epithelial Cells 0 - 2, Urine Bacteria Occ , Urine Other Mucus 07/26/18 22:59: Alcohol, Quantitative < 10 07/26/18 22:59: Salicylates < 1 L, Acetaminophen < 10.0 L 07/26/18 22:59: Sodium 143, Potassium 4.1, Chloride 105, Carbon Dioxide 28, Anion Gap 14, BUN 13, Creatinine 0.9, Est GFR ( Amer) > 60, Est GFR (Non- Af Amer) > 60, Random Glucose 88, Calcium 9.0, Magnesium 2.1, Total Bilirubin 0.5, AST 22, ALT 25, Alkaline Phosphatase 87, Total Creatine Kinase 75, Total Protein 7.0, Albumin 3.7, Globulin 3.2, Albumin/Globulin Ratio 1.1 07/26/18 22:59: WBC 9.9, RBC 4.62, Hgb 14.5, Hct 42.3, MCV 91.6, MCH 31.4, MCHC 34.3, RDW 12.6, Plt Count 339, MPV 9.6, Gran % 67.7, Lymph % (Auto) 25.3, [place] % (Auto) 5.3, Eos % (Auto) 1.4 L, Baso % (Auto) 0.3, Gran # 6.69 H, Lymph # ( Auto) 2.5, [place] # (Auto) 0.5, Eos # (Auto) 0.1, Baso # (Auto) 0.03 Vital Signs Temp Pulse Resp BP Pulse Ox 08/01/18 07:13 97.5 F L 65 20 104/65 07/31/18 15:39 80 114/61 07/31/18 07:15 98.2 F 72 20 117/68 07/30/18 16:00 83 121/79 07/30/18 07:04 97.7 F 72 20 122/75 07/29/18 16:49 78 20 120/61 07/29/18 07:11 98.1 F 71 20 95/61 L 07/28/18 15:03 96 H 121/73 07/28/18 07:12 97.4 F L 67 20 109/62 07/27/18 16:20 72 20 110/72 07/27/18 07:12 98.0 F 68 20 101/62 07/27/18 04:31 98.7 F 20 123/71 07/27/18 04:10 20 07/27/18 03:06 98.2 F 85 16 132/70 100 07/26/18 23:30 98.2 F 30 L 16 135/85 100 EEG within normal limits DSM 5 Symptoms Update: Mr. Дмитрий Castellon is a single 33 year old, homeless -[place] male with a reported history of depression and anxiety, no history of SA, no current outpatient tx who presented to the emergency department complaining of depression and thoughts to harm his former 70 year old boyfriend who evicted him from their [place] apartment a month ago. Patient reported he had a lot of anger towards this exbf who had also apparently thrown out his belongings. Patient admitted that he had thoughts of killing himself and burning down his ex -boyfriend's home so he went to the [facility] upon his friend's advice. patient was seen today next to the nursing station, patient requested to be weaned off from Ativan, patient reported that he feels little better, patient denied feeling depressed patient denied thoughts of killing himself, denied hearing voices or seeing things. Patient has future oriented plans, patient wants to be discharged tomorrow.. as per nursing report patient does not have aggressive or agitated behavior, medication compliant, pleasant and corporative no behavioral issues, last time pt verbalized thoughts of harming his ex- boyfriend was at the time of admission, off note his ex-boyfriend has restraining order against pt. so far patient tolerates medications well, no side effects observed or reported , aims 0, no EPS. Diagnostic Results: Adjustment disorder with mixed depression and anxiety RUFUS Panic Disorder by hx ADHD by hx r/o Major Depression, severe without psychotic features r/o Borderline Personality Disorder Medication Change: Yes (ativan decreasesd) Medical Record Reviewed: Yes Mental Status Examination - Cognitive Function Orientation: Person, Place, Situation, Time Memory: Intact Attention: WNL Concentration: WNL Association: WNL Fund of Knowledge: WNL - Mood Mood: Depressed ("I feel better") - Affect Affect: Broad (and pleasant) - Speech Speech: Appropriate - Formal Thought Process Formal Thought Process: No Impairment - Suicidal Ideation Suicidal Ideation: No - Homicidal Ideation Homicidal Ideation: No Goal/Treatment Plan - Goal/Treatment Plan Need for Continued Stay: Remain at risks for inpatient hospitalization, Severe depression anxiety, Discharge may exacerbated symptoms, Severe functional impairment Progress Toward Problem(s) and Goals/Treatment Plan: group, milieu and supportive tx Lexapro 20 mg po daily on 07/28/18 for depression and anxiety klonopin discontinued Ativan is on tapering dose seroquel discontinued geodon for mood stabilization Nicotine patch 21 mg daily Appreciate f/u by Dr. Vogel/Dr. Cruz on 07/28/18~Topical cream, sitz baths, miralax prn for Hemorrhoids, pending HIV, HPV, GC/Chlamydia, HSV, RPR blood tests for anal tags/warts, c/w trileptal and ativan for hx of seizures and signed off NEUROLOGY CONSULT REQUESTED by Dr. Ballard, discussed with management retail intern 08/01/18, most likely seizures related to alcohol and benzos withdrawals Patient reported he started having seizures in the past 1-2 months. Medical student confirmed that patient was prescribe trileptal 300 mg po bid by Dr. 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 Of note: patient has been denying any further thoughts to harm himself or his exbf while on the unit. Boyfriend had been contacted by [employer] when patient presented there a few weeks ago. He informed the clinician that he had a restraining order on this patient. Family involvement Follow up on labs Will monitor closely SW evaluation for d/c planning, pt said that he has some savings and he can rent a room or stay in the hotel Pt was educated about risk/benefits and alternatives of medications, coping strategies (safety plan, suicide prevention), relapse prevention, importance of follow up with psychiatrist and therapist, stay away from drugs/alcohol/smoking Estimated Date of D/C: 08/09/18
[2018-08-09 07:03] VITALS: BP 100/57; PULSE 66; RESP 20; TEMP 97.9
[2018-08-09] MEDS: Hemorrohoidal Ointment (2 oz) TOP SCH (08:57)
--- NOTE | 2018-08-09 15:07 | PCM.PYCHDC ---
Mental Status Examination - Mental Status Examination Orientation: Person, Place, Situation, Time Memory: Intact Mood: Neutral Affect: Broad (and mood congruent) Speech: Appropriate Attention: WNL Concentration: WNL Association: WNL Fund of Knowledge: WNL Formal Thought Process: No Impairment Description of patient's judgement and insight: Pt has improved insight into mental and medical illness, pt was compliant with medications and unit rules and regulations, pt was going to groups, was calm, cooperative, socially appropriate, no behavioral incidents, no agitation, no aggression. Psychotic Thoughts and Behaviors: Pt denied v/a/t hallucinations, denied paranoid ideations, pt does not appear to be psychotic, and thought process is goal directed. Suicidal Ideation: No Current Homicidal Ideation?: No Plan: pt adamantly denied thoughts of harming self or others denied intent or plan. Discharge Summary - Discharge Note Reason for Hospitalization: depression, impulse control, homicidal ideation, see ' initial evaluation for more detailed information. Psychiatric History (includes Medical, Family, Personal Hx): h/o borderline personality disorder, h/o bipolar, impulse control d/o Laboratory Data: 07/26/18 22:59 07/26/18 22:59 Lab Results 07/29/18 08:15: HSV IgM Ab Screen Negative, HSV I IgM Titer , HSV II IgM Titer , HHV-6 IgM Ab Scrn Negative 07/29/18 08:15: RPR Nonreactive 07/29/18 08:15: HIV 1&2 Ag/Ab, 4th Gen Nonreactive, HPV High Risk Cancelled, HPV Low Risk Cancelled 07/27/18 06:30: RPR Nonreactive 07/27/18 06:30: TSH 3rd Generation 1.01 07/27/18 06:30: Fasting Glucose 116 H, Triglycerides 117, Cholesterol 202 H, LDL Cholesterol Direct 107, HDL Cholesterol 56 07/27/18 02:40: Urine Opiates Screen Negative, Urine Methadone Screen Negative, Ur Barbiturates Screen Negative, Ur Phencyclidine Scrn Negative, Ur Amphetamines Screen Negative, U Benzodiazepines Scrn Negative, U Oth Cocaine Metabols Negative, U Cannabinoids Screen Negative 07/27/18 02:40: Urine Color Yellow, Urine Appearance Clear, Urine pH 6.5, Ur Specific [place] 1.025, Urine Protein Trace H, Urine Glucose (UA) Negative, Urine Ketones Trace H, Urine Blood Negative, Urine Nitrate Negative, Urine Bilirubin Negative, Urine Urobilinogen 0.2, Ur Leukocyte Esterase Negative, Urine RBC 0 - 2, Urine WBC 0 - 2, Ur Epithelial Cells 0 - 2, Urine Bacteria Occ , Urine Other Mucus 07/26/18 22:59: Alcohol, Quantitative < 10 07/26/18 22:59: Salicylates < 1 L, Acetaminophen < 10.0 L 07/26/18 22:59: Sodium 143, Potassium 4.1, Chloride 105, Carbon Dioxide 28, Anion Gap 14, BUN 13, Creatinine 0.9, Est GFR ( Amer) > 60, Est GFR (Non- Af Amer) > 60, Random Glucose 88, Calcium 9.0, Magnesium 2.1, Total Bilirubin 0.5, AST 22, ALT 25, Alkaline Phosphatase 87, Total Creatine Kinase 75, Total Protein 7.0, Albumin 3.7, Globulin 3.2, Albumin/Globulin Ratio 1.1 07/26/18 22:59: WBC 9.9, RBC 4.62, Hgb 14.5, Hct 42.3, MCV 91.6, MCH 31.4, MCHC 34.3, RDW 12.6, Plt Count 339, MPV 9.6, Gran % 67.7, Lymph % (Auto) 25.3, [place] % (Auto) 5.3, Eos % (Auto) 1.4 L, Baso % (Auto) 0.3, Gran # 6.69 H, Lymph # ( Auto) 2.5, [place] # (Auto) 0.5, Eos # (Auto) 0.1, Baso # (Auto) 0.03 Vital Signs Temp Pulse Resp BP Pulse Ox 08/09/18 07:01 97.9 F 66 20 100/57 L 08/08/18 16:26 72 19 118/80 08/08/18 06:56 97.6 F 76 18 120/80 08/07/18 16:00 89 112/57 L 08/07/18 07:18 97.8 F 78 20 108/61 08/06/18 15:00 90 107/57 L 08/06/18 07:30 98.1 F 87 20 122/79 08/05/18 08:01 97.9 F 67 16 101/61 08/04/18 16:00 85 109/63 08/04/18 07:08 98.1 F 65 20 100/56 L 08/03/18 16:00 82 117/64 08/03/18 07:00 97.4 F L 73 20 109/56 L 08/02/18 16:39 73 120/56 L 08/02/18 07:11 97.6 F 68 20 102/60 08/01/18 16:00 75 119/76 08/01/18 07:13 97.5 F L 65 20 104/65 07/31/18 15:39 80 114/61 07/31/18 07:15 98.2 F 72 20 117/68 07/30/18 16:00 83 121/79 07/30/18 07:04 97.7 F 72 20 122/75 07/29/18 16:49 78 20 120/61 07/29/18 07:11 98.1 F 71 20 95/61 L 07/28/18 15:03 96 H 121/73 07/28/18 07:12 97.4 F L 67 20 109/62 07/27/18 16:20 72 20 110/72 07/27/18 07:12 98.0 F 68 20 101/62 07/27/18 04:31 98.7 F 20 123/71 07/27/18 04:10 20 07/27/18 03:06 98.2 F 85 16 132/70 100 07/26/18 23:30 98.2 F 30 L 16 135/85 100 Consultations:: List each consultation separately and include: 1. Reason for request. 2. Findings. 3. Follow-up Consultations: neurology consult was called by discussed with [employer] compliance internship Patient was seen by neurology team, consultation appreciated, patient had EEG, waiting for results back. most likely seizures are related to alcohol and benzodiazepines withdrawals. Summary of Hospital Course include:: 1. Description of specific treatment plan utilized for patients during their course of treatmen. 2. Summarize the time- course for resolution of acute symptoms and/or regressed behaviors. 3. Describe issues identified and worked on during hospitalization. 4. Describe medication utilized. 5. Describe medical problems identified and treated. 6. Reassessment of suicide risk Summary of Hospital Course: As per Dr. Ballard's initial assessment: "Mr. Дмитрий Castellon is a single 33 year old, homeless -Citizen [place] male with a reported history of depression and anxiety, no history of SA, no current outpatient tx who presented to the emergency department complaining of depression and thoughts to harm his former 70 year old boyfriend who evicted him from their [place] apartment a month ago. Patient reported he had a lot of anger towards this exbf who had also apparently thrown out his belongings. Patient admitted that he had thoughts of killing himself and burning down his ex -boyfriend's home so he went to the [facility] upon his friend's advice. " this typewriter repairer took over on Tuesday08/01/18: patient was seen and examined at the treatment team meeting room, patient presented with good personal hygiene, affect was bright, mood incongruent, patient is smiling widely when he was talking about his depressive symptoms and about difficulties in his life. patient was preoccupied with his ADHD medications, and the same time urine analysis was negative for any stimulants. as per Dr. Alvarez report patient has been in good control. He denies having thoughts to harm himself or his exboyfriend. He seems labile but not particularly angry or agitated. Patient reports recent admission to [facility] x3 days x3 weeks ago. He cannot recall prescribed medications but felt they were not beneficial. Reports that he was diagnosed with ADHD and has taken Concerta in the past by his PCP Dr. Lisa Lyons @[phone]. Pt reported that he has not seen her in 1 year that he has been seeing other doctors for his medication (because she had a baby). UDS was negative. over the course of this hospitalization pt was preoccupied with hsi ADHD meds, was claiming that he has withdrawal symptoms on the fifth day of admission. pt was dramatic, was saying that he is agitated and was smiling at the same time. pt was stabilized on the following meds: Lexapro 20 mg po daily for depression and anxiety klonopin discontinued Ativan is on tapering dose seroquel discontinued geodon 20mg po tid for mood stabilization Nicotine patch 21 mg daily pt tolerated meds well, no side effects observed or reported, AIMS 0, no EPS. NEUROLOGY CONSULT REQUESTED by Dr. Ballard, discussed with [employer] compliance internship 08/01/18, most likely seizures related to alcohol and benzos withdrawals Patient reported he started having seizures in the past 1-2 months. Medical student confirmed that patient was prescribe trileptal 300 mg po bid by Dr. Mancini, last refilled on 07/14/18 Appreciate f/u by Dr. Vogel/Dr. 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 Of note: patient has been denying any further thoughts to harm himself or his exbf while on the unit. Boyfriend had been contacted by [facility] when patient presented there a few weeks ago. He informed the clinician that he had a restraining order on this patient. pt was in behavioral control, no agitation or aggression, compliant with meds, was attending groups. pt reached maximum effect from the acute psychiatric admission and deemed ready for d/c. pt was considered to be not in imminent danger to self or others. At the time of the discharge pt denied been depressed, denied thoughts of harming self or others, denied psychotic symptoms, and pt does not appeared to be psychotic, denied been anxious, pt is not in imminent danger to self or others, pt will be f/u with outpatient program as well as anger management classes , information about follow up appointment, time and address provided to the pt, it is patient responsibility to follow up with outpatient clinic, PMD as well as specialists (see note for more detailed information). In case pt will need to obtain results of studies pending at discharge pt was provided with contact information of Psychiatric Inpatient unit [phone] as well as Medical Record Department [phone]. Naltrexone treatment not indicated at this time. Counseling about smoking and alcohol cessation provided AA meetings as well as smoking cessation treatment program information was provided by the pt was provided with prescriptions for all of medications (please see medication reconciliation form) Pt was educated about safety plan in case of worsening of symptoms or in case of suicidal or homicidal ideation call 911 or go to the nearest ER, also was educated to take meds as prescribed and stay away from drugs, pt verbalized understanding. - Diagnosis (1) Depression Current Visit: Yes Status: Acute (2) Impulse control disorder Status: Chronic Priority: Medium - Final Diagnosis (DSM 5) Condition upon Discharge: GOOD Disposition: HOME/ ROUTINE Follow-up Treatment Plan: At the time of the discharge pt denied been depressed, denied thoughts of harming self or others, denied psychotic symptoms, and pt does not appeared to be psychotic, denied been anxious, pt is not in imminent danger to self or others, pt will be f/u with outpatient program as well as anger management classes , information about follow up appointment, time and address provided to the pt, it is patient responsibility to follow up with outpatient clinic, PMD as well as specialists (see note for more detailed information). In case pt will need to obtain results of studies pending at discharge pt was provided with contact information of Psychiatric Inpatient unit [phone] as well as Medical Record Department [phone]. Naltrexone treatment not indicated at this time. Counseling about smoking and alcohol cessation provided AA meetings as well as smoking cessation treatment program information was provided by the pt was provided with prescriptions for all of medications (please see medication reconciliation form) Pt was educated about safety plan in case of worsening of symptoms or in case of suicidal or homicidal ideation call 911 or go to the nearest ER, also was educated to take meds as prescribed and stay away from drugs, pt verbalized understanding. Prescriptions/Medication Reconciliation: Escitalopram [Lexapro] 20 mg PO DAILY #14 tab Hemorrohoidal Ointment [Prep-Hem] 2 gm TOP BID #1 tube LORazepam [Ativan] 0.5 mg PO BID #4 tab Nicotine 21 mg/24 hr [Nicoderm Cq] 1 patch TD DAILY #14 patch OXcarbazepine [Trileptal] 300 mg PO BID #30 tab Polyethylene Glycol 3350 [Miralax] 17 gm PO DAILY PRN #7 packet PRN Reason: Constipation Zaleplon [Sonata] 10 mg PO HS #14 cap Ziprasidone [Geodon Cap] 20 mg PO TID #45 cap - Smoking Cessation Smoking Cessation Medication prescribed: Yes
== END 2018-08-09 14:50 | disposition home or self-care (01) | DRG 885 ==
LOC: ED 22:15 → ERH 07-27 02:41 → PSYC 07-27 03:00
PROVIDERS: ADMIT Psychiatry & Neurology Psychiatry; ATTEND Psychiatry & Neurology Psychiatry
DX: F32.89 Other specified depressive episodes (principal); R45.851 Suicidal ideations; F63.9 Impulse disorder, unspecified; F60.3 Borderline personality disorder; F43.23 Adjustment disorder with mixed anxiety and depressed mood; F90.9 Attention-deficit hyperactivity disorder, unspecified type; G40.909 Epilepsy, unspecified, not intractable, without status epilepticus; F41.0 Panic disorder [episodic paroxysmal anxiety]; K64.9 Unspecified hemorrhoids; L98.9 Disorder of the skin and subcutaneous tissue, unspecified; R45.850 Homicidal ideations; F17.210 Nicotine dependence, cigarettes, uncomplicated; Z59.0 Homelessness; Z79.899 Other long term (current) drug therapy; Z82.0 Family history of epilepsy and other diseases of the nervous system

== ENCOUNTER 2018-08-29 15:06 | Inpatient (IN) | payer MEDICAID ==
--- NOTE | 2018-08-29 15:19 | ED PDOC ---
Arrival/HPI <Varghese Núñez - Last Filed: 08/29/18 17:03> - General Historian: Patient - History of Present Illness Narrative History of Present Illness (Text): 08/29/18 15:16 33 y/o male, pmh including anxiety and depression, nkda, c/o feeling depress and suicidal ideation x 1 week. Pt. stated that he has been feeling very depress associated with suicidal plan of jumping off the [employer] bridge. Pt. has no homocidal or suicidal ideation, no auditory or visual hallucination, no night sweat, no dizziness, no change in vision, no palpitation, no rash, no other medical or psychological complaint. <Linus Caputo - Last Filed: 08/29/18 19:23> - General Time Seen by Provider: 08/29/18 15:16 Past Medical History - Provider Review Nursing Documentation Reviewed: Yes - Infectious Disease Hx of Infectious Diseases: None - Tetanus Immunization Tetanus Immunization: Unknown - Cardiac Hx Cardiac Disorders: No - Pulmonary Hx Respiratory Disorders: No - Neurological Hx Neurological Disorder: No - HEENT Hx HEENT Disorder: No - Renal Hx Renal Disorder: No - Endocrine/Metabolic Hx Endocrine Disorders: No - Hematological/Oncological Hx Blood Disorders: No - Integumentary Hx Dermatological Disorder: No - Musculoskeletal/Rheumatological Hx Musculoskeletal Disorders: No - Gastrointestinal Hx Gastrointestinal Disorders: Yes - Genitourinary/Gynecological Hx Genitourinary Disorders: No - Psychiatric Hx Substance Use: No <Linus Caputo - Last Filed: 08/29/18 19:23> Family/Social History - Physician Review Nursing Documentation Reviewed: Yes Family/Social History: Unknown Family HX Smoking Status: Heavy Smoker > 10 Cigarettes Daily (1 ppd) Hx Alcohol Use: Yes Hx Substance Use: No <Linus Caputo - Last Filed: 08/29/18 19:23> Allergies/Home Meds <Varghese Núñez - Last Filed: 08/29/18 17:03> <Linus Caputo - Last Filed: 08/29/18 19:23> Allergies/Adverse Reactions: Allergies No Known Allergies Allergy (Verified 07/27/18 04:05) Review of Systems - Review of Systems Constitutional: absent: Fatigue, Fevers Eyes: absent: Vision Changes ENT: absent: Hearing Changes Respiratory: absent: SOB, Cough Cardiovascular: absent: Chest Pain Gastrointestinal: absent: Abdominal Pain, Nausea, Vomiting Skin: absent: Rash, Pruritis Neurological: absent: Headache, Dizziness Psychiatric: Depression, Suicidal Ideation. absent: Anxiety <Linus Caputo - Last Filed: 08/29/18 19:23> Physical Exam Vital Signs Temp Pulse Resp BP Pulse Ox 08/29/18 15:38 97.7 F 84 17 129/83 97 <NiyaHueyVarghese - Last Filed: 08/29/18 17:03> - Systems Exam Head: Present: Atraumatic, Normocephalic Pupils: Present: PERRL Extroacular Muscles: Present: EOMI Conjunctiva: Present: Normal Mouth: Present: Moist Mucous Membranes Neck: Present: Normal Range of Motion Respiratory/Chest: Present: Clear to Auscultation, Good Air Exchange. No: Respiratory Distress, Accessory Muscle Use Cardiovascular: Present: Regular Rate and Rhythm, Normal S1, S2. No: Murmurs Abdomen: No: Tenderness, Distention, Peritoneal Signs, Rebound, Guarding Back: Present: Normal Inspection Upper Extremity: Present: Normal Inspection. No: Cyanosis, Edema Lower Extremity: Present: Normal Inspection. No: Edema Neurological: Present: GCS=15, CN II-XII Intact, Speech Normal Skin: Present: Warm, Dry, Normal Color. No: Rashes Psychiatric: Present: Alert, Oriented x 3, Normal Insight, Normal Concentration, Depressed Mood, Suicidal Ideation <Linus Caputo - Last Filed: 08/29/18 19:23> Medical Decision Making - Lab Interpretations Lab Results: 08/29/18 15:56 08/29/18 15:56 Lab Results 08/29/18 16:18: Urine Opiates Screen Negative, Urine Methadone Screen Negative, Ur Barbiturates Screen Negative, Ur Phencyclidine Scrn Negative, Ur Amphetamines Screen Negative, U Benzodiazepines Scrn Negative, U Oth Cocaine Metabols Negative, U Cannabinoids Screen Negative 08/29/18 15:56: Urine Color Yellow, Urine Appearance Clear, Urine pH 6.0, Ur Specific [place] >= 1.030, Urine Protein Negative, Urine Glucose (UA) Negative, Urine Ketones Negative, Urine Blood Small H, Urine Nitrate Negative, Urine Bilirubin Negative, Urine Urobilinogen 0.2, Ur Leukocyte Esterase Negative, Urine RBC 1 - 3, Urine WBC 0 - 2, Ur Epithelial Cells None, Urine Bacteria Trace 08/29/18 15:56: Alcohol, Quantitative < 10 08/29/18 15:56: Salicylates < 1 L, Acetaminophen < 10.0 L 08/29/18 15:56: Sodium 141, Potassium 4.4, Chloride 103, Carbon Dioxide 28, Anion Gap 14, BUN 14, Creatinine 0.9, Est GFR ( Amer) > 60, Est GFR (Non- Af Amer) > 60, Random Glucose 88, Calcium 9.5, Total Bilirubin 0.9, AST 29, ALT 32, Alkaline Phosphatase 96, Total Protein 8.1, Albumin 4.4, Globulin 3.7, Albumin/Globulin Ratio 1.2 08/29/18 15:56: WBC 8.9, RBC 5.48, Hgb 17.3 D, Hct 49.6, MCV 90.5, MCH 31.6, MCHC 34.9, RDW 12.3, Plt Count 316, MPV 9.6, Gran % 67.6, Lymph % (Auto) 24.0, [place] % (Auto) 7.4 H, Eos % (Auto) 0.8 L, Baso % (Auto) 0.2, Gran # 6.02, Lymph # (Auto) 2.1, [place] # (Auto) 0.7 H, Eos # (Auto) 0.1, Baso # (Auto) 0.02 - RAD Interpretation Radiology Orders: 08/29/18 15:21 CHEST PORTABLE [RAD] Stat <Varghese Núñez - Last Filed: 08/29/18 17:03> ED Course and Treatment: 08/29/18 15:20 -Labs/ua/uds -one to one -EKG -CXR -PES paged and awared -Observe and reassess 08/29/18 16:53 -EKG NSR @ 82 BPM, no ST elevation or depression, no T wave inversion. -CXR show No active pulmonary disease. COPD. -Labs show no acute findings -Alcohol/acetaminophen/salicylate within normal limit -UDS show no acute findings. -Pt. is medically clear and stable for psychiatric evaluation. -Pending PES 08/29/18 19:22 -PES David evaluated the patient and spoke to the psyciatrist DR. Chapis Brewster, recommend admission, admission order placed. - RAD Interpretation Radiology Orders: Date of service: 08/29/2018 HISTORY: medical clearance COMPARISON: No prior. FINDINGS: LUNGS: The lungs are hyperinflated and there is peribronchial thickening with chronic changes in both lungs. No focal consolidation. PLEURA: No significant pleural effusion identified, no pneumothorax apparent. CARDIOVASCULAR: Normal. OSSEOUS STRUCTURES: No significant abnormalities. VISUALIZED UPPER ABDOMEN: Normal. OTHER FINDINGS: None. IMPRESSION: No active pulmonary disease. COPD. Market Risk Specialist: Radiologist - EKG Interpretation EKG Interpretation (Text): 08/29/18 16:00 NSR @ 82 BPM, no ST elevation or depression, no T wave inversion. Interpreted by ED Physician: Yes Type: 12 lead EKG <Linus Caputo - Last Filed: 08/29/18 19:23> - PA / [employer] SENIOR OFFICER / Resident Statement MANUEL has examined the patient and agrees with the treatment plan. <Varghese Núñez - Last Filed: 08/29/18 17:03> - PA / [employer] SENIOR OFFICER / Resident Statement MANUEL has reviewed & agrees with the documentation as recorded. <Linus Caputo - Last Filed: 08/29/18 19:23> Disposition/Present on Arrival <Varghese Núñez - Last Filed: 08/29/18 17:03> - Present on Arrival Any Indicators Present on Arrival: No History of DVT/PE: No History of Uncontrolled Diabetes: No Urinary Catheter: No History of Decub. Ulcer: No History Surgical Site Infection Following: None - Disposition Have Diagnosis and Disposition been Completed?: Yes Disposition Time: 16:26 Patient Plan: Admission <Linus Caputo - Last Filed: 08/29/18 19:23> - Disposition Diagnosis: Depression, Suicidal ideation Disposition: HOSPITALIZED Condition: STABLE Referrals: PCP,NO [Primary Care Provider] - Follow up with primary
[2018-08-29 15:21] VITALS: BMI 22.1
--- NOTE | 2018-08-29 15:51 | RAD ---
Date of service: 08/29/2018 HISTORY: medical clearance COMPARISON: No prior. FINDINGS: LUNGS: The lungs are hyperinflated and there is peribronchial thickening with chronic changes in both lungs. No focal consolidation. PLEURA: No significant pleural effusion identified, no pneumothorax apparent. CARDIOVASCULAR: Normal. OSSEOUS STRUCTURES: No significant abnormalities. VISUALIZED UPPER ABDOMEN: Normal. OTHER FINDINGS: None. IMPRESSION: No active pulmonary disease. COPD.
[2018-08-29 16:02] LABS: BASO # 0.02 K/mm3 (0.0-2.0); BASO % 0.2 % (0.0-3.0); EOS # 0.1 (0.0-0.7); EOS % 0.8 % (1.5-5.0); GRAN # 6.02 (1.4-6.5); GRAN % 67.6 % (50.0-68.0); HEMOGLOBIN 17.3 g/dL (14.0-18.0); LYMPH # 2.1 (1.2-3.4); MEAN CELL VOLUME 90.5 fl (80.0-105.0); MEAN CORPUSCULAR HEMOGLOBIN 31.6 pg (25.0-35.0); MEAN CORPUSCULAR HGB CONC 34.9 g/dl (31.0-37.0); MEAN PLATELET VOLUME 9.6 fl (7.0-11.0); MONO # 0.7 (0.1-0.6); MONO % 7.4 % (1.0-6.0); RBC 5.48 10^6/uL (3.5-6.1); RED CELL DISTRIBUTION WIDTH 12.3 % (11.5-14.5); WHITE BLOOD COUNT 8.9 10^3/ul (4.5-11.0)
[2018-08-29 16:15] LABS: ACETAMINOPHEN < 10.0 ug/ml (10.0-20.0); SALICYLATE < 1 mg/dL (2.0-20.0)
[2018-08-29 16:16] LABS: ALB/GLOB RATIO 1.2 (1.1-1.8); ALBUMIN 4.4 g/dL (3.0-4.8); ALT/SGPT 32 U/L (7-56); AST/SGOT 29 U/L (17-59); BLOOD UREA NITROGEN 14 mg/dL (7-21); CALCIUM 9.5 mg/dL (8.4-10.5); GFR NON-AFRICAN AMERICAN > 60
[2018-08-29 16:17] LABS: URINE BILIRUBIN NEGATIVE (NEGATIVE); URINE BLOOD SMALL (NEGATIVE); URINE GLUCOSE (UA) NEGATIVE (NEGATIVE); URINE LEUKOCYTE ESTERASE NEGATIVE Leu/uL (NEGATIVE); URINE PROTEIN NEGATIVE mg/dL (<30 mg/dL); URINE UROBILINOGEN 0.2 E.U./dL (<1 E.U./dL)
[2018-08-29 16:18] LABS: URINE APPEARANCE CLEAR (CLEAR); URINE COLOR YELLOW (YELLOW)
[2018-08-29 16:25] LABS: URINE BACTERIA TRACE (NEG); URINE WBC 0 - 2 /hpf (0-6)
[2018-08-29 16:49] LABS: BARBITURATES, UR NEGATIVE (NEGATIVE); BENZODIAZEPINES, UR NEGATIVE (NEGATIVE); OPIATES, UR NEGATIVE (NEGATIVE); PHENCYCLIDINE, UR NEGATIVE (NEGATIVE)
--- NOTE | 2018-08-29 21:15 | CARD ---
APPROVED REPORT Date of service: 08/29/2018 EKG Measurement Heart [id number] <Conclusion> Normal sinus rhythm Normal ECG
--- NOTE | 2018-08-29 23:46 | PCM.BM ---
<Donna Lemon - Last Filed: 08/29/18 23:44> Treatment Plan Problems - Problems identified on initial assessmt Hopelessness/Helplessness Date Initiated: 08/29/18 Time Initiated: 23:44 Assessment reference: NA Status: Active Ineffective Coping Date Initiated: 08/29/18 Time Initiated: 23:45 Assessment reference: NA Status: Active Altered Sleep Patterns Date Initiated: 08/29/18 Time Initiated: 23:45 Assessment reference: NA Status: Active Medication nonadherence Date Initiated: 08/29/18 Time Initiated: 23:45 Assessment reference: NA Status: Active Treatment assets and liabiliti Patient Assests: cooperative, educated, self-reliant, ADL independent, physically healthy, good support system, negotiates basic needs, cognitively intact, good interpersonal skills Patient Liabilities: live alone, financial problems, poor support system, relationship conflicts - Milieu Protocol Maintain good personal hygiene: daily Encourage regular showers, daily Remind patient to perform daily oral care, daily Assist patient to perform ADL's Conduct patient checks and document Observation sheet: Q15 minutes Maintain personal safety: every shift Educate patient to report safety concerns to staff, every shift Monitor environment for contraband/sharps Medication safety: Monitor for expected outcome, potential side effects: every shift, Assess barriers to learning: every shift, Assess readiness for medication education: every shift Discharge/Continuing Care - Education Needs Education Needs: Patient Medication, Patient Diagnosis/Disease Process, Patient Coping Skills, Patient Anger Management skills, Patient Community resources, Patient Health Practices/Safety, Patient Aftercare Safety Plan - Discharge Discharge Criteria: Tolerates medication w/o severe side effects, Free of Suicidal thoughts, Free of Homicidal thoughts, Free of paranoid thoughts, Free of agitation, Normal sleep pattern, Ability to care for self, Reduction of target symptoms <Chapis Rdz - Last Filed: 08/30/18 14:54> - Diagnosis (1) Mood disorder Status: Acute Interventions: 08/30/18 14:54 Psychoeducation Psychopharmacology/adjustment of medications as needed/ monitoring possible side effects Evaluate pt on daily basis Compliance with medications and follow up appointments Suicide and homicide risk assessment and prevention Relapse prevention Reduction of symptoms Improve functional status Family involvement As outpatient: cognitive behavioral therapy (2) Borderline personality disorder Status: Acute Interventions: 08/30/18 14:54 Psychoeducation Psychopharmacology/adjustment of medications as needed/ monitoring possible side effects Evaluate pt on daily basis Compliance with medications and follow up appointments Suicide and homicide risk assessment and prevention, coping strategies, safety plan Relapse prevention Family involvement As outpatient: Transference-focused psychotherapy/dialectical behavioral therapy/schema therapy Mindfulness skills <Katherine Chacko Y - Last Filed: 08/30/18 16:45> Family Contact Family involvement: Famliy/SO not involved
[2018-08-30 08:06] LABS: GLUCOSE,FASTING 94 mg/dL (65-110); HDL CHOLESTEROL 71 mg/dL (29-60)
[2018-08-30 08:17] LABS: LDL CHOLESTEROL 158 mg/dL (0-129)
[2018-08-30] MEDS ORDERED: DORZOLAMIDE HCL OU SCH (11:30)
[2018-08-30] MEDS ORDERED: TIMOLOL MALEATE OU SCH (11:30)
--- NOTE | 2018-08-30 14:53 | PCM.PSYCH ---
Initial Psychiatric Evaluation - Initial Psychiatric Evaluation Type of Admission: Voluntary Legal Status: Capacity (patient has capacity to sign consent for treatment) Chief Complaint (in patient's own words): "I was confused, my friend said that I am acting crazy, he said I need to go to the hospital" Patient's Reaction to Hospitalization: pt was admitted for possible suicidal ideation with the plan to jump off the bridge. History of Present Illness and Precipitating Events: shortly patient is 33-year-old -Citizen Of [place] male with self reported history of depression and anxiety, one previous psych admission, less than a month ago to this facility, pt came to the ED complaining of depression, possible suicidal ideation with the plan to jump off the bridge, pt c/o side effects of the Lexapro, requested to be weaned off from this medication. pt requires further evaluation and stabilization and meds adjustment. patient was seen at the treatment team meeting, good ADLs and good personal hygiene. pt is unreliable historian, majority of the answers were that he does not remember the dates, he cannot concentrate. pt said that he feels it is related to the Lexapro. pt said that he was "acting crazy", "horrible suicidal thoughts", "mind organism.", when was asked to give an example pt said that he would go to the police station and ask officer "do you want to fight with me?", pt said that three days ago he had similar episode and he was brought to [facility] "I did not care, I cursed everyone in ED, they were scared and let me go". pt said that prior to this hospitalization he was "confused", and went to [place] to an outlet mall, then he started to "act crazy.", pt said that he had his headphones on and talked to his friend and started to initiate fight with random people and asking to fight with him. pt said then his friend said that he is "crazy and advised me to go to the hospital". PT reports having violent thoughts, walking out in traffic and "flicking people off." pt said that he took a train to come to the hospital. pt presented to be dramatic, laughing inappropriately. as per ED report pt had thoughts of jumping [place], when was asked pt reports having thoughts to jump off the bridge on August 24, 2018. to RN pt said it was yesterday, pt is unreliable historian. PT [place] [facility] due to having previous admission at facility and having "success." PT denies any drug or alcohol use. PT reports smoking cigarettes and states he "loves" them. PT reports smoking 1 pk of cigarettes per day, counseling provided, nicotine patch offered. Pt's goal for treatment to get his "mind back" as he used to be "quick" on his feet. Patient reports he followed up with outpatient provider but did not resume care, as they would not provide patient with prescription for Adderal. PT requested medications of anxiety as he feels that his "insides are burning." Pt signed treatment plan, reported having no questions and left the room. legal h/o: pt reported his ex-boyfriend pressed charges, but "I won all the cased, charges dismissed". as per previous psych admission: Self reported ADHD and has taken Concerta in the past by his PCP Dr. Lisa Lyons @[phone]. Pt reported that he has not seen her in 1 year that he has been seeing other doctors for his medication (because she had a baby). Patient was also prescribed trileptal 300 mg AM and 450 mg HS for reported seizures secondary to the stress of the last 1-2 months (per patient). Family h/o: unknown Medical h/o: ?seizures 08/29/18 15:56 08/29/18 15:56 Lab Results 08/30/18 07:45: Fasting Glucose 94, Triglycerides 90, Cholesterol 282 H, LDL Cholesterol Direct 158 H, HDL Cholesterol 71 H 08/30/18 07:45: TSH 3rd Generation 1.18 08/29/18 16:18: Urine Opiates Screen Negative, Urine Methadone Screen Negative, Ur Barbiturates Screen Negative, Ur Phencyclidine Scrn Negative, Ur Amphetamines Screen Negative, U Benzodiazepines Scrn Negative, U Oth Cocaine Metabols Negative, U Cannabinoids Screen Negative 08/29/18 15:56: Urine Color Yellow, Urine Appearance Clear, Urine pH 6.0, Ur Specific [place] >= 1.030, Urine Protein Negative, Urine Glucose (UA) Negative, Urine Ketones Negative, Urine Blood Small H, Urine Nitrate Negative, Urine Bilirubin Negative, Urine Urobilinogen 0.2, Ur Leukocyte Esterase Negative, Urine RBC 1 - 3, Urine WBC 0 - 2, Ur Epithelial Cells None, Urine Bacteria Trace 08/29/18 15:56: Alcohol, Quantitative < 10 08/29/18 15:56: Salicylates < 1 L, Acetaminophen < 10.0 L 08/29/18 15:56: Sodium 141, Potassium 4.4, Chloride 103, Carbon Dioxide 28, Anion Gap 14, BUN 14, Creatinine 0.9, Est GFR ( Amer) > 60, Est GFR (Non- Af Amer) > 60, Random Glucose 88, Calcium 9.5, Total Bilirubin 0.9, AST 29, ALT 32, Alkaline Phosphatase 96, Total Protein 8.1, Albumin 4.4, Globulin 3.7, [place] min/Globulin Ratio 1.2 08/29/18 15:56: WBC 8.9, RBC 5.48, Hgb 17.3 D, Hct 49.6, MCV 90.5, MCH 31.6, MCHC 34.9, RDW 12.3, Plt Count 316, MPV 9.6, Gran % 67.6, Lymph % (Auto) 24.0, [place] % (Auto) 7.4 H, Eos % (Auto) 0.8 L, Baso % (Auto) 0.2, Gran # 6.02, Lymph # (Auto) 2.1, [place] # (Auto) 0.7 H, Eos # (Auto) 0.1, Baso # (Auto) 0.02 Vital Signs Temp Pulse Resp BP Pulse Ox 08/30/18 07:21 98.0 F 75 20 126/82 08/29/18 21:30 98.3 F 80 20 107/79 97 08/29/18 19:14 85 18 129/75 98 08/29/18 17:05 88 18 129/63 98 08/29/18 15:38 97.7 F 84 17 129/83 97 Current Medications: Active Medications Generic Name Dose Route Start Last Admin Trade Name Freq PRN Reason Stop Dose Admin Lorazepam 2 mg 08/29/18 22:45 Ativan PO Q6 PRN agitation/psychosis Protocol Lorazepam 2 mg 08/29/18 22:54 Ativan IM Q6H PRN agitation/psychosis Protocol Oxcarbazepine 300 mg 08/29/18 22:15 08/29/18 22:16 Trileptal PO 300 mg BID GIRISH Administration Protocol Zaleplon 10 mg 08/29/18 22:04 08/29/18 22:16 Sonata PO 10 mg HS PRN Administration Insomnia Ziprasidone 20 mg 08/29/18 22:45 Geodon Cap PO Q6 PRN agitation/psychosis Protocol Ziprasidone 20 mg 08/29/18 22:54 Geodon Inj IM Q6 PRN agitation/psychosis Protocol Past Psychiatric History - Past Psychiatric History Previous Treatment History: Inpatient Prior Professional Help: see HPI Prior Psychiatric Treatment: see HPI At what hospital: see HPI Duration: see HPI Nature of Treatment: see HPI Explanation of prior treatment: see HPI History of Abuse: see HPI History of ETOH/Drug Use: see HPI History of Family Illness: see HPI Pertinent Medical Hx (Current Medical&Sleep Prob, Allergies): Allergies Allergy/AdvReac Type Severity Reaction Status Date / Time No Known Allergies Allergy Verified 08/29/18 22:56 Escitalopram [Lexapro] 20 mg PO DAILY #14 tab 08/09/18 Hemorrohoidal Ointment [Prep-Hem] 2 gm TOP BID #1 tube 08/09/18 LORazepam [Ativan] 0.5 mg PO BID #4 tab 08/09/18 Nicotine 21 mg/24 hr [Nicoderm Cq] 1 patch TD DAILY #14 patch 08/09/18 OXcarbazepine [Trileptal] 300 mg PO BID #30 tab 08/09/18 Polyethylene Glycol 3350 [Miralax] 17 gm PO DAILY PRN #7 packet 08/09/18 Zaleplon [Sonata] 10 mg PO HS #14 cap 08/09/18 Ziprasidone [Geodon Cap] 20 mg PO TID #45 cap 08/09/18 Review of Systems - Review of Systems Systems not reviewed;Unavailable: Acuity of Condition - EENT Eyes: As Per HPI Ears: As Per HPI Nose/Mouth/Throat: As Per HPI - Cardiovascular Cardiovascular: As Per HPI - Respiratory Respiratory: As Per HPI - Gastrointestinal Gastrointestinal: As Per HPI - Genitourinary Genitourinary: As Per HPI - Reproductive: Male Reproductive:Male: As Per HPI - Musculoskeletal Musculoskeletal: As Par HPI - Integumentary Integumentary: As Per HPI - Neurological Neurological: As Per HPI - Psychiatric Psychiatric: As Per HPI - Endocrine Endocrine: As Per HPI - Hematologic/Lymphatic Hematologic: As Per HPI Mental Status Examination - Personal Presentation Personal Presentation: Looks stated age - Affect Affect: Other (inappropriate affect) - Motor Activity Motor Activity: Calm - Reliability in Providing Information Reliability in Providing Information: Poor, due to alteration in thoughts, Other (cannot exclude malingering) - Speech Speech: Disorganized - Formal Thought Process Formal Thought Process: Circumstantial - Obsessions/Compulsions Obsessions: None Compulsions: None - Cognitive Functions Orientation: Person, Place, Situation, Time Sensorium: Alert Attention/Concentration: Easily distracted Estimate of Intelligence: Below average Judgement: Intact, as evidence by: Insight regarding need for hospitalization - Risk Risk: Self-mutilation, Diminished functioning - Strength & Assets Inventory Strength & Assets Inventory: Cooperative (good physical health, no heavy drug use) - Limitations Limitations: Other (noncompliance, homelessness, not working) DSM 5 DX - DSM 5 DSM 5 Diagnosis: mood disorder NOS r/o borderline personality disorder ?ADHD - Recommended/Plan of Treatment Treatment Recommendations and Plan of Treatment: Milieu/structure/supportive therapy SW consultation for discharge plan and social issues Med management wellbutrin 75mg po bid for depression and ADHD, as per pt, outpatient program refused to give stimulant for him Escitalopram d/c Nicotine 21 mg/24 hr [Nicoderm Cq] 1 patch TD DAILY OXcarbazepine [Trileptal] 300 mg PO BID Zaleplon [Sonata] 10 mg PO HS for insomnia Ziprasidone [Geodon Cap] 20 mg PO amhs for mood stabilization Family involvement Follow up on labs Will monitor closely Pt was educated about risk/benefits and alternatives of medications, coping strategies (safety plan, suicide prevention), relapse prevention, importance of follow up with psychiatrist and therapist, stay away from drugs/alcohol/smoking Projected ELOS: 7days Prognosis: fair Discharge Plan and Discharge Criteria: Pt will be not depressed or manic, will be more hopeful, will be not psychotic or anxious, will be not having thoughts of harming self or others, will be tolerating medications well, will not have major side effects, will be able to f unction, will not pose threat to self or others. - Smoking Cessation Smoking Cessation Initiated: Yes
--- NOTE | 2018-08-31 14:20 | PCM.PYCHPN ---
Psychiatric Progress Note - Psychiatric Progress Note Patient seen today, length of contact: 30 min Patient Chief Complaint: "I feel little better, no crazy thoughts so far.." Problems Identified/Issues Discussed: Suicide/ homicide prevention, past psychiatric h/o, current psychiatric symptoms, medical problems, risk/benefits and alternatives of medications, medications compliance, coping strategies, substance abuse h/o, relapse prevention, importance of follow up with psychiatrist and therapist, discharge plan. Medical Problems: ?seizure disorder Diagnostic Results: 08/29/18 15:56 08/29/18 15:56 Lab Results 08/30/18 07:45: Fasting Glucose 94, Triglycerides 90, Cholesterol 282 H, LDL Cholesterol Direct 158 H, HDL Cholesterol 71 H 08/30/18 07:45: RPR Nonreactive 08/30/18 07:45: TSH 3rd Generation 1.18 08/29/18 16:18: Urine Opiates Screen Negative, Urine Methadone Screen Negative, Ur Barbiturates Screen Negative, Ur Phencyclidine Scrn Negative, Ur Amphetamines Screen Negative, U Benzodiazepines Scrn Negative, U Oth Cocaine Metabols Negative, U Cannabinoids Screen Negative 08/29/18 15:56: Urine Color Yellow, Urine Appearance Clear, Urine pH 6.0, Ur Specific [place] >= 1.030, Urine Protein Negative, Urine Glucose (UA) Negative, Urine Ketones Negative, Urine Blood Small H, Urine Nitrate Negative, Urine Bilirubin Negative, Urine Urobilinogen 0.2, Ur Leukocyte Esterase Negative, Urine RBC 1 - 3, Urine WBC 0 - 2, Ur Epithelial Cells None, Urine Bacteria Trace 08/29/18 15:56: Alcohol, Quantitative < 10 08/29/18 15:56: Salicylates < 1 L, Acetaminophen < 10.0 L 08/29/18 15:56: Sodium 141, Potassium 4.4, Chloride 103, Carbon Dioxide 28, Anion Gap 14, BUN 14, Creatinine 0.9, Est GFR ( Amer) > 60, Est GFR (Non- Af Amer) > 60, Random Glucose 88, Calcium 9.5, Total Bilirubin 0.9, AST 29, ALT 32, Alkaline Phosphatase 96, Total Protein 8.1, Albumin 4.4, Globulin 3.7, Albumin/Globulin Ratio 1.2 08/29/18 15:56: WBC 8.9, RBC 5.48, Hgb 17.3 D, Hct 49.6, MCV 90.5, MCH 31.6, MCHC 34.9, RDW 12.3, Plt Count 316, MPV 9.6, Gran % 67.6, Lymph % (Auto) 24.0, [place] % (Auto) 7.4 H, Eos % (Auto) 0.8 L, Baso % (Auto) 0.2, Gran # 6.02, Lymph # (Auto) 2.1, [place] # (Auto) 0.7 H, Eos # (Auto) 0.1, Baso # (Auto) 0.02 Vital Signs Temp Pulse Resp BP Pulse Ox 08/31/18 07:14 97.4 F L 75 20 109/71 08/30/18 16:00 90 119/73 08/30/18 07:21 98.0 F 75 20 126/82 08/29/18 21:30 98.3 F 80 20 107/79 97 08/29/18 19:14 85 18 129/75 98 08/29/18 17:05 88 18 129/63 98 08/29/18 15:38 97.7 F 84 17 129/83 97 DSM 5 Symptoms Update: shortly patient is 33-year-old -Algerian male with self reported history of depression and anxiety, one previous psych admission, less than a month ago to this facility, pt came to the ED complaining of depression, possible suicidal ideation with the plan to jump off the bridge, pt c/o side effects of the Lexapro, requested to be weaned off from this medication. pt requires further evaluation and stabilization and meds adjustment. patient was seen in his room, good ADLs and good personal hygiene. patient seems to have good mood today, smiling towards this medical writer, he'll patient is very inconsistent with his stories, saying that Lexapro was giving him "crazy thoughts", patient reports that he feels little better, patient was observed giggling inappropriately during the interview. As per staff patient today patient is self isolating, not participating in unit activities but no agitation or aggression. Social far patient tolerates medications well, no side effects observed or r eported, aims 0, no EPS. DSM 5 Diagnosis: mood disorder NOS r/o borderline personality disorder ?ADHD Medication Change: Yes Medical Record Reviewed: Yes Consults ordered or reviewed: patient was seen by medical team in the emergency room, no acute medical issues. Mental Status Examination - Cognitive Function Orientation: Person, Place, Situation, Time Memory: Impaired (patient claimed that he had difficulty to remember things and concentrate) Attention: Poor Concentration: Poor Association: WNL Fund of Knowledge: WNL - Mood Mood: Neutral - Affect Affect: Other (inappropriate affect, patient was observed smiling and giggling inappropriately) - Speech Speech: Appropriate - Formal Thought Process Formal Thought Process: Circumstantial - Suicidal Ideation Suicidal Ideation: No - Homicidal Ideation Homicidal Ideation: No Goal/Treatment Plan - Goal/Treatment Plan Need for Continued Stay: Remain at risks for inpatient hospitalization, Severe depression anxiety, Discharge may exacerbated symptoms, Severe functional impairment Progress Toward Problem(s) and Goals/Treatment Plan: Milieu/structure/supportive therapy SW consultation for discharge plan and social issues Med management wellbutrin 75mg po bid for depression and ADHD, as per pt, outpatient program refused to give stimulant for him Escitalopram d/c Nicotine 21 mg/24 hr [Nicoderm Cq] 1 patch TD DAILY OXcarbazepine [Trileptal] 300 mg PO BID Zaleplon [Sonata] 10 mg PO HS for insomnia Ziprasidone [Geodon Cap] 20 mg PO amhs for mood stabilization Family involvement Follow up on labs Will monitor closely Pt was educated about risk/benefits and alternatives of medications, coping str ategies (safety plan, suicide prevention), relapse prevention, importance of follow up with psychiatrist and therapist, stay away from drugs/alcohol/smoking Estimated Date of D/C: 09/04/18
--- NOTE | 2018-09-01 15:50 | PCM.PYCHPN ---
Psychiatric Progress Note - Psychiatric Progress Note Patient seen today, length of contact: 30 min Patient Chief Complaint: "I feel little better, but there was feeling very anxious, is any chance that he can increase my Neurontin" Problems Identified/Issues Discussed: Suicide/ homicide prevention, past psychiatric h/o, current psychiatric symptoms, medical problems, risk/benefits and alternatives of medications, medications compliance, coping strategies, substance abuse h/o, relapse prevention, importance of follow up with psychiatrist and therapist, discharge plan. Medical Problems: ?seizure disorder Diagnostic Results: 08/29/18 15:56 08/29/18 15:56 Lab Results 08/30/18 07:45: Fasting Glucose 94, Triglycerides 90, Cholesterol 282 H, LDL Cholesterol Direct 158 H, HDL Cholesterol 71 H 08/30/18 07:45: RPR Nonreactive 08/30/18 07:45: TSH 3rd Generation 1.18 08/29/18 16:18: Urine Opiates Screen Negative, Urine Methadone Screen Negative, Ur Barbiturates Screen Negative, Ur Phencyclidine Scrn Negative, Ur Amphetamines Screen Negative, U Benzodiazepines Scrn Negative, U Oth Cocaine Metabols Negative, U Cannabinoids Screen Negative 08/29/18 15:56: Urine Color Yellow, Urine Appearance Clear, Urine pH 6.0, Ur Specific [place] >= 1.030, Urine Protein Negative, Urine Glucose (UA) Negative, Urine Ketones Negative, Urine Blood Small H, Urine Nitrate Negative, Urine Bilirubin Negative, Urine Urobilinogen 0.2, Ur Leukocyte Esterase Negative, Urine RBC 1 - 3, Urine WBC 0 - 2, Ur Epithelial Cells None, Urine Bacteria Trace 08/29/18 15:56: Alcohol, Quantitative < 10 08/29/18 15:56: Salicylates < 1 L, Acetaminophen < 10.0 L 08/29/18 15:56: Sodium 141, Potassium 4.4, Chloride 103, Carbon Dioxide 28, Anion Gap 14, BUN 14, Creatinine 0.9, Est GFR ( Amer) > 60, Est GFR (Non- Af Amer) > 60, Random Glucose 88, Calcium 9.5, Total Bilirubin 0.9, AST 29, ALT 32, Alkaline Phosphatase 96, Total Protein 8.1, Albumin 4.4, Globulin 3.7, Albumin/Globulin Ratio 1.2 08/29/18 15:56: WBC 8.9, RBC 5.48, Hgb 17.3 D, Hct 49.6, MCV 90.5, MCH 31.6, MCHC 34.9, RDW 12.3, Plt Count 316, MPV 9.6, Gran % 67.6, Lymph % (Auto) 24.0, [place] % (Auto) 7.4 H, Eos % (Auto) 0.8 L, Baso % (Auto) 0.2, Gran # 6.02, Lymph # (Auto) 2.1, [place] # (Auto) 0.7 H, Eos # (Auto) 0.1, Baso # (Auto) 0.02 Vital Signs Temp Pulse Resp BP Pulse Ox 08/31/18 07:14 97.4 F L 75 20 109/71 08/30/18 16:00 90 119/73 08/30/18 07:21 98.0 F 75 20 126/82 08/29/18 21:30 98.3 F 80 20 107/79 97 08/29/18 19:14 85 18 129/75 98 08/29/18 17:05 88 18 129/63 98 08/29/18 15:38 97.7 F 84 17 129/83 97 DSM 5 Symptoms Update: shortly patient is 33-year-old -Swazi male with self reported history of depression and anxiety, one previous psych admission, less than a month ago to this facility, pt came to the ED complaining of depression, possible suicidal ideation with the plan to jump off the bridge, pt c/o side effects of the Lexapro, requested to be weaned off from this medication. pt requires further evaluation and stabilization and meds adjustment. patient was next to the nursing station, good ADLs and good personal hygiene. patient seems to be anxious today, patient reported that he feels that he is withdrawing from the Lexapro, patient reported that he does not have a knee "crazy thoughts, patient reported that his mood is improving, so far patient tolerates medications well. As per staff patient is self isolating, not willing to participate in unit activities. patient was observed giggling inappropriately during the interview. As per staff patient today patient is self isolating, bizarre, was covering his head with a blanket, not participating in unit activities but no agitation or aggression. Social far patient tolerates medications well, no side effects observed or reported, aims 0, no EPS. DSM 5 Diagnosis: mood disorder NOS r/o borderline personality Medication Change: Yes (Neurontin increased, geodon increased) Medical Record Reviewed: Yes Consults ordered or reviewed: patient was seen by medical team in the emergency room, no acute medical issues. Mental Status Examination - Cognitive Function Orientation: Person, Place, Situation, Time Memory: Impaired (patient claimed that he had difficulty to remember things and concentrate) Attention: Poor Concentration: Poor Association: WNL Fund of Knowledge: WNL - Mood Mood: Neutral - Affect Affect: Other (inappropriate affect, patient was observed smiling and giggling inappropriately) - Speech Speech: Appropriate - Formal Thought Process Formal Thought Process: Circumstantial - Suicidal Ideation Suicidal Ideation: No - Homicidal Ideation Homicidal Ideation: No Goal/Treatment Plan - Goal/Treatment Plan Need for Continued Stay: Remain at risks for inpatient hospitalization, Severe depression anxiety, Discharge may exacerbated symptoms, Severe functional impairment Progress Toward Problem(s) and Goals/Treatment Plan: Milieu/structure/supportive therapy SW consultation for discharge plan and social issues Med management wellbutrin 75mg po bid for depression and ADHD, as per pt, outpatient program refused to give stimulant for him Escitalopram d/c Nicotine 21 mg/24 hr [Nicoderm Cq] 1 patch TD DAILY OXcarbazepine [Trileptal] 300 mg PO BID Neurontin 300 mg 3 times a day Zaleplon [Sonata] 10 mg PO HS for insomnia Ziprasidone [Geodon Cap] 20 mg PO bid and hs for mood stabilization Family involvement Follow up on labs Will monitor closely Pt was educated about risk/benefits and alternatives of medications, coping strategies (safety plan, suicide prevention), relapse prevention, importance of follow up with psychiatrist and therapist, stay away from drugs/alcohol/smoking Estimated Date of D/C: 09/04/18
--- NOTE | 2018-09-02 11:41 | CP.PCM.CON ---
Addendum entered and electronically signed by Kishore Montano DO 09/02/18 12:37: Diet switched to HHD w/ low fat/cholesterol Patient is ambulatory not requiring DVT ppx Low risk of peptic ulcers and not requiring GI ppx Original Note: <Kishore Montano - Last Filed: 09/02/18 12:13> History of Present Illness - History of Present Illness History of Present Illness: Kishore Montano PGY2 Medicine Consult for Dr. Brink 33 year old homosexual -Syrian male with a PMH of seizures, depression and suicidal thoughts who presents to the psych unit for suicidal ideations, that he states are associated with his Lexapro medication. Medicine team is consulted due to left armpit rash. The patient was seen in the past in other hospitals and warts were observed on his anus and underneath his testicles that looked concerning and told pt he may have HPV. The patient denies being diagnosed with any STDs in the past. He states he's had the armpit rash for about a week and it hasn't changed. Denies headache, fever, chills, chest pain, shortness of breath, n/v, abd pain, diarrhea, urinary complaints, or other symptoms. 12-pt ROS was reviewed and is otherwise unremarkable. PMH: seizures (last one in 2008 as per pt) PSH: hernia repair at 4 mos old Allergies: NKDA Meds: reviewed on JAN SHx: Homosexual, recently describes months of promiscuity with multiple sexual partners; denies alcohol, or drug use; admits to vaping and 1ppd tobacco PMD: none Review of Systems - Review of Systems All systems: reviewed and no additional remarkable complaints except (as per HPI) Past Patient History - Infectious Disease Hx of Infectious Diseases: None - Tetanus Immunizations Tetanus Immunization: Unknown - Past Medical History & Family History Past Medical History?: Yes - Past Social History Smoking Status: Heavy Smoker > 10 Cigarettes Daily (1 ppd) Alcohol: None Drugs: Denies - CARDIAC Hx Cardiac Disorders: No Hx Hypertension: No - PULMONARY Hx Respiratory Disorders: No Hx Tuberculosis: No - NEUROLOGICAL HX Cerebrovascular Accident: No Hx Seizures: Yes (last episode 2 months ago as per pt.) - HEENT Hx HEENT Problems: No - RENAL Hx Chronic Kidney Disease: No - ENDOCRINE/METABOLIC Hx Endocrine Disorders: No - HEMATOLOGICAL/ONCOLOGICAL Hx Blood Disorders: No Hx Cancer: No Hx Human Immunodeficiency Virus (HIV): No - INTEGUMENTARY Hx Dermatological Problems: No - MUSCULOSKELETAL/RHEUMATOLOGICAL Hx Musculoskeletal Disorders: No - GASTROINTESTINAL Hx Gastrointestinal Disorders: No - GENITOURINARY/GYNECOLOGICAL Hx Genitourinary Disorders: No Hx Sexually Transmitted Disorders: No - PSYCHIATRIC Hx Anxiety: Yes Hx Depression: Yes Hx Substance Use: No - SURGICAL HISTORY Hx Surgeries: Yes Hx Herniorrhaphy: Yes Meds Allergies/Adverse Reactions: Allergies Allergy/AdvReac Type Severity Reaction Status Date / Time No Known Allergies Allergy Verified 08/29/18 22:56 - Medications Medications: Current Medications Bupropion HCl (Wellbutrin) 75 mg PO BID [facility] Last Admin: 09/02/18 09:42 Dose: 75 mg Gabapentin (Neurontin) 300 mg PO TID GIRISH; Protocol Last Admin: 09/02/18 09:43 Dose: 300 mg Lorazepam (Ativan) 2 mg PO Q6 PRN; Protocol PRN Reason: agitation/psychosis Last Admin: 09/02/18 00:17 Dose: 2 mg Lorazepam (Ativan) 2 mg IM Q6H PRN; Protocol PRN Reason: agitation/psychosis Nicotine (Nicoderm Cq) 1 patch TD DAILY GIRISH Last Admin: 09/02/18 09:42 Dose: 1 patch Oxcarbazepine (Trileptal) 300 mg PO BID GIRISH; Protocol Last Admin: 09/02/18 09:43 Dose: 300 mg Zaleplon (Sonata) 10 mg PO HS PRN PRN Reason: Insomnia Last Admin: 08/31/18 22:36 Dose: 10 mg Ziprasidone (Geodon Cap) 20 mg PO Q6 PRN; Protocol PRN Reason: agitation/psychosis Ziprasidone (Geodon Inj) 20 mg IM Q6 PRN; Protocol PRN Reason: agitation/psychosis Ziprasidone (Geodon Cap) 20 mg PO HS GIRISH; Protocol Last Admin: 09/01/18 21:16 Dose: 20 mg Ziprasidone (Geodon Cap) 20 mg PO BID GIRISH; Protocol Last Admin: 09/02/18 09:42 Dose: 20 mg Physical Exam - Constitutional Appears: Well, Non-toxic, No Acute Distress - Head Exam Head Exam: NORMAL INSPECTION - Eye Exam Eye Exam: EOMI, Normal appearance, PERRL Pupil Exam: NORMAL ACCOMODATION - ENT Exam ENT Exam: Mucous Membranes Moist, Normal Exam, Normal Oropharynx - Neck Exam Neck exam: Positive for: Normal Inspection - Respiratory Exam Respiratory Exam: NORMAL BREATHING PATTERN. absent: Rales, Rhonchi, Wheezes, Respiratory Distress - Cardiovascular Exam Cardiovascular Exam: RRR, +S1, +S2. absent: Systolic Murmur - GI/Abdominal Exam GI & Abdominal Exam: Normal Bowel Sounds, Soft. absent: Distended, Tenderness - Exam Additional comments: scrotal skin tags present - Extremities Exam Extremities exam: Positive for: full ROM, joint swelling. Negative for: pedal edema Additional comments: fungal infection w/ surrounding erythema moderate in right armpit, and mild in left armpit - Back Exam Back exam: NORMAL INSPECTION. absent: rash noted - Neurological Exam Neurological exam: Alert, CN II-XII Intact, Oriented x3 - Psychiatric Exam Psychiatric exam: Normal Affect - Skin Skin Exam: Rash (as described above) Results - Vital Signs Recent Vital Signs: Last Vital Signs Temp 97.8 F 09/02/18 06:55 Pulse 90 09/02/18 06:55 Resp 20 09/02/18 06:55 BP 94/60 L 09/02/18 06:55 Pulse Ox 97 08/29/18 21:30 - Labs Result Diagrams: 08/29/18 15:56 08/29/18 15:56 Assessment & Plan - Assessment and Plan (Free Text) Assessment: 33 year old homosexual -Syrian male with a PMH of seizures, depression and suicidal thoughts who presents to the psych unit for suicidal ideations, that he states are associated with his Lexapro medication. Medicine team is consulted due to left armpit rash. Rash is likely fungal. Patient also tobacco dependent and was educated on the risks of continued smoking and benefit of cessation; he states he will attempt cessation. His sexual history and hx of STDs is also unclear. Plan: continue Trileptal for seizures seizure precautions management per primary/psych team will order HIV, HPV, and Hepatitis panel; will f/u on labs when they are done will order antifungal/antisteroidal combination to be applied after shower w/ thorough washing and drying continue to monitor if symptoms persist or worsen continue nicotine patch and educate on smoking cessation instruct on safe sex measures recommend to f/u PMD or [facility] upon discharge for medical follow-up Lipid panel reviewed; given that patient is <40yo, there are no indications to start statin therapy but patient should be educated on healthy diet to prevent future cardiovascular events No other medical intervention needed at this time Further recs per Dr. Brink Patient was see, examined and discussed with attending, Dr. Cuba Montano PGY2 <Laura Brink - Last Filed: 09/03/18 13:37> Meds - Medications Medications: Current Medications Acetaminophen (Tylenol 325mg Tab) 650 mg PO Q4H PRN PRN Reason: Pain, moderate (4-7) Last Admin: 09/02/18 15:31 Dose: 650 mg Betamethasone/Clotrimazole (Lotrisone) 0 gm TOP BID GIRISH Last Admin: 09/03/18 09:02 Dose: 1 u Bupropion HCl (Wellbutrin) 100 mg PO BID GIRISH Gabapentin (Neurontin) 300 mg PO TID GIRISH; Protocol Last Admin: 09/03/18 12:12 Dose: 300 mg Lorazepam (Ativan) 2 mg PO Q6 PRN; Protocol PRN Reason: agitation/psychosis Last Admin: 09/03/18 00:29 Dose: 2 mg Lorazepam (Ativan) 2 mg IM Q6H PRN; Protocol PRN Reason: agitation/psychosis Nicotine (Nicoderm Cq) 1 patch TD DAILY GIRISH Last Admin: 09/03/18 09:03 Dose: 1 patch Oxcarbazepine (Trileptal) 300 mg PO BID GIRISH; Protocol Last Admin: 09/03/18 09:05 Dose: 300 mg Zaleplon (Sonata) 10 mg PO HS PRN PRN Reason: Insomnia Last Admin: 09/02/18 23:15 Dose: 10 mg Ziprasidone (Geodon Cap) 20 mg PO Q6 PRN; Protocol PRN Reason: agitation/psychosis Ziprasidone (Geodon Inj) 20 mg IM Q6 PRN; Protocol PRN Reason: agitation/psychosis Ziprasidone (Geodon Cap) 20 mg PO HS GIRISH; Protocol Last Admin: 09/02/18 21:58 Dose: 20 mg Ziprasidone (Geodon Cap) 20 mg PO BID GIRISH; Protocol Last Admin: 09/03/18 09:05 Dose: 20 mg Results - Vital Signs Recent Vital Signs: Last Vital Signs Temp 97.8 F 10/07/18 07:07 Pulse 75 09/03/18 07:07 Resp 18 09/03/18 07:07 BP 98/53 L 09/03/18 07:07 Pulse Ox 97 08/29/18 21:30 - Labs Result Diagrams: 08/29/18 15:56 08/29/18 15:56 Attending/Attestation - Attestation I have personally seen and examined this patient.: Yes I have fully participated in the care of the patient.: Yes I have reviewed all pertinent clinical information: Yes Notes (Text): 09/03/18 13:24 Attending note; Patient seen and examined with resident in psychiatric floor. Patient denies any complaints other than rash in the armpit area. Denies any fevers, chills. Denies any urinary symptoms. Denies any diarrhea. Denies any nausea, vomiting. Denies any weight loss. Tolerating diet well. Ambulating fine. Patient is a 33 year old homosexual -Syrian male with a PMH of ? seizures, depression and suicidal thoughts who presents to the psych unit for suicidal ideations. Currently complaining of rash in both axillary area. Started on anti-fungal and stated that combination. Follow up closely. Hypercholesterolemia; dietary education given. Labs reviewed. Urine drug screen is negative. History of seizure disorder; on Trileptal and Klonopin. Follow-up urology as outpatient. HIV and hepatitis panel requested. Advised to follow-up with PMD of choice/or [facility] clinic upon discharge. Patient is medically stable. We'll sign off. Please call us with any abnormal results.
--- NOTE | 2018-09-02 14:12 | PCM.PYCHPN ---
Psychiatric Progress Note - Psychiatric Progress Note Patient seen today, length of contact: 30 min Patient Chief Complaint: "I was feeling not so good, at the evening I was feeling very anxious, may be I was withdrawing..." Problems Identified/Issues Discussed: Suicide/ homicide prevention, past psychiatric h/o, current psychiatric symptoms, medical problems, risk/benefits and alternatives of medications, medications compliance, coping strategies, substance abuse h/o, relapse prevention, importance of follow up with psychiatrist and therapist, discharge plan. Medical Problems: ?seizure disorder Diagnostic Results: 08/29/18 15:56 08/29/18 15:56 Lab Results 08/30/18 07:45: Fasting Glucose 94, Triglycerides 90, Cholesterol 282 H, LDL Cholesterol Direct 158 H, HDL Cholesterol 71 H 08/30/18 07:45: RPR Nonreactive 08/30/18 07:45: TSH 3rd Generation 1.18 08/29/18 16:18: Urine Opiates Screen Negative, Urine Methadone Screen Negative, Ur Barbiturates Screen Negative, Ur Phencyclidine Scrn Negative, Ur Amphetamines Screen Negative, U Benzodiazepines Scrn Negative, U Oth Cocaine Metabols Negative, U Cannabinoids Screen Negative 08/29/18 15:56: Urine Color Yellow, Urine Appearance Clear, Urine pH 6.0, Ur Specific [place] >= 1.030, Urine Protein Negative, Urine Glucose (UA) Negative, Urine Ketones Negative, Urine Blood Small H, Urine Nitrate Negative, Urine Bilirubin Negative, Urine Urobilinogen 0.2, Ur Leukocyte Esterase Negative, Urine RBC 1 - 3, Urine WBC 0 - 2, Ur Epithelial Cells None, Urine Bacteria Trace 08/29/18 15:56: Alcohol, Quantitative < 10 08/29/18 15:56: Salicylates < 1 L, Acetaminophen < 10.0 L 08/29/18 15:56: Sodium 141, Potassium 4.4, Chloride 103, Carbon Dioxide 28, Anion Gap 14, BUN 14, Creatinine 0.9, Est GFR ( Amer) > 60, Est GFR (Non- Af Amer) > 60, Random Glucose 88, Calcium 9.5, Total Bilirubin 0.9, AST 29, ALT 32, Alkaline Phosphatase 96, Total Protein 8.1, Albumin 4.4, Globulin 3.7, Albumin/Globulin Ratio 1.2 08/29/18 15:56: WBC 8.9, RBC 5.48, Hgb 17.3 D, Hct 49.6, MCV 90.5, MCH 31.6, MCHC 34.9, RDW 12.3, Plt Count 316, MPV 9.6, Gran % 67.6, Lymph % (Auto) 24.0, [place] % (Auto) 7.4 H, Eos % (Auto) 0.8 L, Baso % (Auto) 0.2, Gran # 6.02, Lymph # (Auto) 2.1, [place] # (Auto) 0.7 H, Eos # (Auto) 0.1, Baso # (Auto) 0.02 Vital Signs Temp Pulse Resp BP Pulse Ox 08/31/18 07:14 97.4 F L 75 20 109/71 08/30/18 16:00 90 119/73 08/30/18 07:21 98.0 F 75 20 126/82 08/29/18 21:30 98.3 F 80 20 107/79 97 08/29/18 19:14 85 18 129/75 98 08/29/18 17:05 88 18 129/63 98 08/29/18 15:38 97.7 F 84 17 129/83 97 DSM 5 Symptoms Update: shortly patient is 33-year-old -Portuguese male with self reported history of depression and anxiety, one previous psych admission, less than a month ago to this facility, pt came to the ED complaining of depression, possible suicidal ideation with the plan to jump off the bridge, pt c/o side effects of the Lexapro, requested to be weaned off from this medication. pt requires further evaluation and stabilization and meds adjustment. patient was next to the nursing station, good ADLs and good personal hygiene. patient seems to be anxious today, patient reported that he feels that he is withdrawing from the Lexapro, "but overall I feel little better". As per staff patient is self isolating, not willing to participate in unit activities. patient was observed giggling inappropriately during the interview. As per staff patient today patient is self isolating, bizarre, was covering his head with a blanket, not participating in unit activities but no agitation or aggression. Social far patient tolerates medications well, no side effects observed or reported, aims 0, no EPS. DSM 5 Diagnosis: mood disorder NOS r/o borderline personality Medication Change: Yes (Neurontin increased, geodon increased) Medical Record Reviewed: Yes Consults ordered or reviewed: patient was seen by medical team in the emergency room, no acute medical issues. Mental Status Examination - Cognitive Function Orientation: Person, Place, Situation, Time Memory: Impaired (patient claimed that he had difficulty to remember things and concentrate) Attention: Poor Concentration: Poor Association: WNL Fund of Knowledge: WNL - Mood Mood: Neutral - Affect Affect: Other (inappropriate affect, patient was observed smiling and giggling inappropriately) - Speech Speech: Appropriate - Formal Thought Process Formal Thought Process: Circumstantial - Suicidal Ideation Suicidal Ideation: No - Homicidal Ideation Homicidal Ideation: No Goal/Treatment Plan - Goal/Treatment Plan Need for Continued Stay: Remain at risks for inpatient hospitalization, Severe depression anxiety, Discharge may exacerbated symptoms, Severe functional impairment Progress Toward Problem(s) and Goals/Treatment Plan: Milieu/structure/supportive therapy SW consultation for discharge plan and social issues Med management wellbutrin 75mg po bid for depression and ADHD, as per pt, outpatient program refused to give stimulant for him Escitalopram d/c Nicotine 21 mg/24 hr [Nicoderm Cq] 1 patch TD DAILY OXcarbazepine [Trileptal] 300 mg PO BID Neurontin 300 mg 3 times a day Zaleplon [Sonata] 10 mg PO HS for insomnia Ziprasidone [Geodon Cap] 20 mg PO bid and hs for mood stabilization Family involvement Follow up on labs Will monitor closely Pt was educated about risk/benefits and alternatives of medications, coping strategies (safety plan, suicide prevention), relapse prevention, importance of follow up with psychiatrist and therapist, stay away from drugs/alcohol/smoking Estimated Date of D/C: 09/04/18
[2018-09-02] MEDS ORDERED: Clotrimazole 1% Cream(30 gm) TOP SCH (16:00)
[2018-09-02] MEDS: Clotrimazole/Betamethasone Cream(15 gm) TOP SCH (16:44)
[2018-09-03] MEDS: Clotrimazole/Betamethasone Cream(15 gm) TOP SCH ×2 (09:02→16:44)
--- NOTE | 2018-09-03 13:20 | PCM.PYCHPN ---
Psychiatric Progress Note - Psychiatric Progress Note Patient seen today, length of contact: 30 min Patient Chief Complaint: "I have severe withdrawal symptoms" Problems Identified/Issues Discussed: Suicide/ homicide prevention, past psychiatric h/o, current psychiatric symp toms, medical problems, risk/benefits and alternatives of medications, medications compliance, coping strategies, substance abuse h/o, relapse prevention, importance of follow up with psychiatrist and therapist, discharge plan. Medical Problems: ?seizure disorder Diagnostic Results: 08/29/18 15:56 08/29/18 15:56 Lab Results 08/30/18 07:45: Fasting Glucose 94, Triglycerides 90, Cholesterol 282 H, LDL Cholesterol Direct 158 H, HDL Cholesterol 71 H 08/30/18 07:45: RPR Nonreactive 08/30/18 07:45: TSH 3rd Generation 1.18 08/29/18 16:18: Urine Opiates Screen Negative, Urine Methadone Screen Negative, Ur Barbiturates Screen Negative, Ur Phencyclidine Scrn Negative, Ur Amphetamines Screen Negative, U Benzodiazepines Scrn Negative, U Oth Cocaine Metabols Negative, U Cannabinoids Screen Negative 08/29/18 15:56: Urine Color Yellow, Urine Appearance Clear, Urine pH 6.0, Ur Specific [place] >= 1.030, Urine Protein Negative, Urine Glucose (UA) Negative, Urine Ketones Negative, Urine Blood Small H, Urine Nitrate Negative, Urine Bilirubin Negative, Urine Urobilinogen 0.2, Ur Leukocyte Esterase Negative, Urine RBC 1 - 3, Urine WBC 0 - 2, Ur Epithelial Cells None, Urine Bacteria Trace 08/29/18 15:56: Alcohol, Quantitative < 10 08/29/18 15:56: Salicylates < 1 L, Acetaminophen < 10.0 L 08/29/18 15:56: Sodium 141, Potassium 4.4, Chloride 103, Carbon Dioxide 28, Anion Gap 14, BUN 14, Creatinine 0.9, Est GFR ( Amer) > 60, Est GFR (Non- Af Amer) > 60, Random Glucose 88, Calcium 9.5, Total Bilirubin 0.9, AST 29, ALT 32, Alkaline Phosphatase 96, Total Protein 8.1, Albumin 4.4, Globulin 3.7, Albumin/Globulin Ratio 1.2 08/29/18 15:56: WBC 8.9, RBC 5.48, Hgb 17.3 D, Hct 49.6, MCV 90.5, MCH 31.6, MCHC 34.9, RDW 12.3, Plt Count 316, MPV 9.6, Gran % 67.6, Lymph % (Auto) 24.0, [place] % (Auto) 7.4 H, Eos % (Auto) 0.8 L, Baso % (Auto) 0.2, Gran # 6.02, Lymph # (Auto) 2.1, [place] # (Auto) 0.7 H, Eos # (Auto) 0.1, Baso # (Auto) 0.02 Vital Signs Temp Pulse Resp BP Pulse Ox 08/31/18 07:14 97.4 F L 75 20 109/71 08/30/18 16:00 90 119/73 08/30/18 07:21 98.0 F 75 20 126/82 08/29/18 21:30 98.3 F 80 20 107/79 97 08/29/18 19:14 85 18 129/75 98 08/29/18 17:05 88 18 129/63 98 08/29/18 15:38 97.7 F 84 17 129/83 97 DSM 5 Symptoms Update: shortly patient is 33-year-old -Burmese male with self reported history of depression and anxiety, one previous psych admission, less than a month ago to this facility, pt came to the ED complaining of depression, possible suicidal ideation with the plan to jump off the bridge, pt c/o side effects of the L exapro, requested to be weaned off from this medication. pt requires further evaluation and stabilization and meds adjustment. patient was seen in his room, pt reported to have "severe withdrawals from the Lexapro", off note pt was admitted to this unit five days ago, it is highly unlikely for the pt still having "withdrawals", last admission pt had similar symptoms "withdrawals from stimulants". vitals are stable, pt has good appetite good ADLs and good personal hygiene. "but overall I feel little better". As per staff patient is self isolating, bizarre, was covering his head with a bl anket, not participating in unit activities but no agitation or aggression. patient was observed giggling inappropriately during the interview. Social far patient tolerates medications well, no side effects observed or reported, aims 0, no EPS. DSM 5 Diagnosis: mood disorder NOS r/o borderline personality Medication Change: Yes (wellbutrin increased) Medical Record Reviewed: Yes Mental Status Examination - Cognitive Function Orientation: Person, Place, Situation, Time Memory: Impaired (patient claimed that he had difficulty to remember things and concentrate) Attention: Poor Concentration: Poor Association: WNL Fund of Knowledge: WNL - Mood Mood: Neutral - Affect Affect: Other (inappropriate affect, patient was observed smiling and giggling inappropriately) - Speech Speech: Appropriate - Formal Thought Process Formal Thought Process: Circumstantial - Suicidal Ideation Suicidal Ideation: No - Homicidal Ideation Homicidal Ideation: No Goal/Treatment Plan - Goal/Treatment Plan Need for Continued Stay: Remain at risks for inpatient hospitalization, Severe depression anxiety, Discharge may exacerbated symptoms, Severe functional impairment Progress Toward Problem(s) and Goals/Treatment Plan: Milieu/structure/supportive therapy SW consultation for discharge plan and social issues Med management wellbutrin 100mg po bid for depression and ADHD, as per pt, outpatient program refused to give stimulant for him Escitalopram d/c Nicotine 21 mg/24 hr [Nicoderm Cq] 1 patch TD DAILY OXcarbazepine [Trileptal] 300 mg PO BID Neurontin 300 mg 3 times a day Zaleplon [Sonata] 10 mg PO HS for insomnia Ziprasidone [Geodon Cap] 20 mg PO bid and hs for mood stabilization Family involvement Follow up on labs Will monitor closely Pt was educated about risk/benefits and alternatives of medications, coping strategies (safety plan, suicide prevention), relapse prevention, importance of follow up with psychiatrist and therapist, stay away from drugs/alcohol/smoking Estimated Date of D/C: 09/06/18
[2018-09-04 07:58] VITALS: O2SAT 100
[2018-09-04 08:21] LABS: HEPATITIS B SURFACE AG Negative (NEGATIVE)
[2018-09-04 08:26] LABS: HEPATITIS A IGM NEGATIVE (NEGATIVE); HEPATITIS B CORE AB NEGATIVE (NEGATIVE)
[2018-09-04 08:38] LABS: HEPATITIS C ANTIBODY NEGATIVE (NEGATIVE)
[2018-09-04] MEDS: Clotrimazole/Betamethasone Cream(15 gm) TOP SCH ×2 (09:45→17:23)
--- NOTE | 2018-09-05 08:24 | PN ---
DATE: 09/04/[address] Rdz. Chart reviewed and case discussed with staff. The patient is a 33-year-old male with a reported history of depression and anxiety. He had been hospitalized at this hospital approximately 1 month prior to present admission. Presently he complained of suicidal ideation with a plan to jump off a bridge. He had been complaining about the side effects of Lexapro and was asking to be weaned off of this. This however was considered to be unlikely given that he had been off of the medication for approximately 5 days and his vital signs and appetite have been considered to be stable. He may also be withdrawing from his ADHD medication, complaining of a lack of sleep. Psychotropically he has been maintained on Ativan p.r.n., Geodon p.r.n. 20 mg b.i.d. and at bedtime, gabapentin 300 mg t.i.d., Seroquel 25 mg at bedtime, Sonata 10 mg at bedtime p.r.n. He has also been complaining about racing of thoughts intermittently. He appears to be alert and oriented to three spheres. HIV testing has been negative as has hepatitis profile. Lucio Aguilar MD/ PhD
[2018-09-05] MEDS: Clotrimazole/Betamethasone Cream(15 gm) TOP SCH ×2 (12:06→17:05)
--- NOTE | 2018-09-05 16:33 | PCM.PYCHPN ---
Psychiatric Progress Note - Psychiatric Progress Note Patient seen today, length of contact: 30 min Patient Chief Complaint: "I did not sleep well" Problems Identified/Issues Discussed: Suicide/ homicide prevention, past psychiatric h/o, current psychiatric symptoms, medical problems, risk/benefits and alternatives of medications, medications compliance, coping strategies, substance abuse h/o, relapse prevention, importance of follow up with psychiatrist and therapist, discharge plan. Medical Problems: ?seizure disorder Diagnostic Results: 08/29/18 15:56 08/29/18 15:56 Lab Results 08/30/18 07:45: Fasting Glucose 94, Triglycerides 90, Cholesterol 282 H, LDL Cholesterol Direct 158 H, HDL Cholesterol 71 H 08/30/18 07:45: RPR Nonreactive 08/30/18 07:45: TSH 3rd Generation 1.18 08/29/18 16:18: Urine Opiates Screen Negative, Urine Methadone Screen Negative, Ur Barbiturates Screen Negative, Ur Phencyclidine Scrn Negative, Ur Amphetamines Screen Negative, U Benzodiazepines Scrn Negative, U Oth Cocaine Metabols Negative, U Cannabinoids Screen Negative 08/29/18 15:56: Urine Color Yellow, Urine Appearance Clear, Urine pH 6.0, Ur Specific [place] >= 1.030, Urine Protein Negative, Urine Glucose (UA) Negative, Urine Ketones Negative, Urine Blood Small H, Urine Nitrate Negative, Urine Bilirubin Negative, Urine Urobilinogen 0.2, Ur Leukocyte Esterase Negative, Urine RBC 1 - 3, Urine WBC 0 - 2, Ur Epithelial Cells None, Urine Bacteria Trace 08/29/18 15:56: Alcohol, Quantitative < 10 08/29/18 15:56: Salicylates < 1 L, Acetaminophen < 10.0 L 08/29/18 15:56: Sodium 141, Potassium 4.4, Chloride 103, Carbon Dioxide 28, Anion Gap 14, BUN 14, Creatinine 0.9, Est GFR ( Amer) > 60, Est GFR (Non- Af Amer) > 60, Random Glucose 88, Calcium 9.5, Total Bilirubin 0.9, AST 29, ALT 32, Alkaline Phosphatase 96, Total Protein 8.1, Albumin 4.4, Globulin 3.7, [place] min/Globulin Ratio 1.2 08/29/18 15:56: WBC 8.9, RBC 5.48, Hgb 17.3 D, Hct 49.6, MCV 90.5, MCH 31.6, MCHC 34.9, RDW 12.3, Plt Count 316, MPV 9.6, Gran % 67.6, Lymph % (Auto) 24.0, [place] % (Auto) 7.4 H, Eos % (Auto) 0.8 L, Baso % (Auto) 0.2, Gran # 6.02, Lymph # (Auto) 2.1, [place] # (Auto) 0.7 H, Eos # (Auto) 0.1, Baso # (Auto) 0.02 Vital Signs Temp Pulse Resp BP Pulse Ox 08/31/18 07:14 97.4 F L 75 20 109/71 08/30/18 16:00 90 119/73 08/30/18 07:21 98.0 F 75 20 126/82 08/29/18 21:30 98.3 F 80 20 107/79 97 08/29/18 19:14 85 18 129/75 98 08/29/18 17:05 88 18 129/63 98 08/29/18 15:38 97.7 F 84 17 129/83 97 DSM 5 Symptoms Update: shortly patient is 33-year-old -[place] male with self reported history of depression and anxiety, one previous psych admission, less than a month ago to this facility, pt came to the ED complaining of depression, possible suicidal ideation with the plan to jump off the bridge, pt c/o side effects of the Lexapro, requested to be weaned off from this medication. pt requires further evaluation and stabilization and meds adjustment. patient was seen next to the nursing station, patient complained of anxiety and insomnia, seroquel was started by Dr. Aguilar, will increase the dose, Klonopin will be started, Remeron will be also started. vitals are stable, pt has good appetite good ADLs and good personal hygiene. "but overall I feel little better, yesterday I had a horrible day" As per staff patient is self isolating, bizarre Social far patient tolerates medications well, no side effects observed or reported, aims 0, no EPS. DSM 5 Diagnosis: mood disorder NOS r/o borderline personality Medication Change: Yes (cervical increased, Remeron started, Klonopin started) Medical Record Reviewed: Yes Mental Status Examination - Cognitive Function Orientation: Person, Place, Situation, Time Memory: Impaired (patient claimed that he had difficulty to remember things and concentrate) Attention: Poor Concentration: Poor Association: WNL Fund of Knowledge: WNL - Mood Mood: Neutral - Affect Affect: Other (inappropriate affect, patient was observed smiling and giggling inappropriately) - Speech Speech: Appropriate - Formal Thought Process Formal Thought Process: Circumstantial - Suicidal Ideation Suicidal Ideation: No - Homicidal Ideation Homicidal Ideation: No Goal/Treatment Plan - Goal/Treatment Plan Need for Continued Stay: Remain at risks for inpatient hospitalization, Severe depression anxiety, Discharge may exacerbated symptoms, Severe functional impairment Progress Toward Problem(s) and Goals/Treatment Plan: Milieu/structure/supportive therapy SW consultation for discharge plan and social issues Med management wellbutrin 100mg po bid for depression and ADHD, as per pt, outpatient program refused to give stimulant for him Escitalopram d/c Nicotine 21 mg/24 hr [Nicoderm Cq] 1 patch TD DAILY OXcarbazepine [Trileptal] 300 mg PO BID Neurontin 300 mg 3 times a day Seroquel 50 mg at the nighttime from stabilization Remeron 30 mg at the nighttime for the depression and insomnia Klonopin 0.25 mg twice day started anxiety Family involvement Follow up on labs Will monitor closely Pt was educated about risk/benefits and alternatives of medications, coping strategies (safety plan, suicide prevention), relapse prevention, importance of follow up with psychiatrist and therapist, stay away from drugs/alcohol/smoking Estimated Date of D/C: 09/07/18
[2018-09-06] MEDS: Clotrimazole/Betamethasone Cream(15 gm) TOP SCH ×2 (11:57→17:29)
--- NOTE | 2018-09-06 17:27 | PCM.PYCHPN ---
Psychiatric Progress Note - Psychiatric Progress Note Patient seen today, length of contact: 30 min Patient Chief Complaint: "I feel very agitated inside, I have severe withdrawal from my stimulants" Problems Identified/Issues Discussed: Suicide/ homicide prevention, past psychiatric h/o, current psychiatric symptoms, medical problems, risk/benefits and alternatives of medications, medications compliance, coping strategies, substance abuse h/o, relapse prevention, importance of follow up with psychiatrist and therapist, discharge plan. Medical Problems: ?seizure disorder Diagnostic Results: 08/29/18 15:56 08/29/18 15:56 Lab Results 08/30/18 07:45: Fasting Glucose 94, Triglycerides 90, Cholesterol 282 H, LDL Cholesterol Direct 158 H, HDL Cholesterol 71 H 08/30/18 07:45: RPR Nonreactive 08/30/18 07:45: TSH 3rd Generation 1.18 08/29/18 16:18: Urine Opiates Screen Negative, Urine Methadone Screen Negative, Ur Barbiturates Screen Negative, Ur Phencyclidine Scrn Negative, Ur Amphetamines Screen Negative, U Benzodiazepines Scrn Negative, U Oth Cocaine Metabols Negative, U Cannabinoids Screen Negative 08/29/18 15:56: Urine Color Yellow, Urine Appearance Clear, Urine pH 6.0, Ur Specific [place] >= 1.030, Urine Protein Negative, Urine Glucose (UA) Negative, Urine Ketones Negative, Urine Blood Small H, Urine Nitrate Negative, Urine Bilirubin Negative, Urine Urobilinogen 0.2, Ur Leukocyte Esterase Negative, Urine RBC 1 - 3, Urine WBC 0 - 2, Ur Epithelial Cells None, Urine Bacteria Trace 08/29/18 15:56: Alcohol, Quantitative < 10 08/29/18 15:56: Salicylates < 1 L, Acetaminophen < 10.0 L 08/29/18 15:56: Sodium 141, Potassium 4.4, Chloride 103, Carbon Dioxide 28, Anion Gap 14, BUN 14, Creatinine 0.9, Est GFR ( Amer) > 60, Est GFR (Non- Af Amer) > 60, Random Glucose 88, Calcium 9.5, Total Bilirubin 0.9, AST 29, ALT 32, Alkaline Phosphatase 96, Total Protein 8.1, Albumin 4.4, Globulin 3.7, Albumin/Globulin Ratio 1.2 08/29/18 15:56: WBC 8.9, RBC 5.48, Hgb 17.3 D, Hct 49.6, MCV 90.5, MCH 31.6, MCHC 34.9, RDW 12.3, Plt Count 316, MPV 9.6, Gran % 67.6, Lymph % (Auto) 24.0, [place] % (Auto) 7.4 H, Eos % (Auto) 0.8 L, Baso % (Auto) 0.2, Gran # 6.02, Lymph # (Auto) 2.1, [place] # (Auto) 0.7 H, Eos # (Auto) 0.1, Baso # (Auto) 0.02 Vital Signs Temp Pulse Resp BP Pulse Ox 08/31/18 07:14 97.4 F L 75 20 109/71 08/30/18 16:00 90 119/73 08/30/18 07:21 98.0 F 75 20 126/82 08/29/18 21:30 98.3 F 80 20 107/79 97 08/29/18 19:14 85 18 129/75 98 08/29/18 17:05 88 18 129/63 98 08/29/18 15:38 97.7 F 84 17 129/83 97 DSM 5 Symptoms Update: shortly patient is 33-year-old -[place] African male with self reported history of depression and anxiety, one previous psych admission, less than a month ago to this facility, pt came to the ED complaining of depression, possible suicidal ideation with the plan to jump off the bridge, pt c/o side effects of the Lexapro, requested to be weaned off from this medication. pt requires further evaluation and stabilization and meds adjustment. patient was seen at the treatment team meeting, pt said that he feels "agitated and I feel severe withdrawals", pt's vitals are stable, no signs of withdrawals, pt was self isolating, reported being depressed. vitals are stable, pt has good appetite good ADLs and good personal hygiene. "but overall I feel little better, yesterday I had a horrible day" As per staff patient is self isolating, bizarre Social far patient tolerates medications well, no side effects observed or reported, aims 0, no EPS. DSM 5 Diagnosis: mood disorder NOS r/o borderline personality Medication Change: No (adjusted yesterday) Medical Record Reviewed: Yes Mental Status Examination - Cognitive Function Orientation: Person, Place, Situation, Time Memory: Impaired (patient claimed that he had difficulty to remember things and concentrate) Attention: Poor Concentration: Poor Association: WNL Fund of Knowledge: WNL - Mood Mood: Neutral - Affect Affect: Other (inappropriate affect, patient was observed smiling and giggling inappropriately) - Speech Speech: Appropriate - Formal Thought Process Formal Thought Process: Circumstantial - Suicidal Ideation Suicidal Ideation: No - Homicidal Ideation Homicidal Ideation: No Goal/Treatment Plan - Goal/Treatment Plan Need for Continued Stay: Remain at risks for inpatient hospitalization, Severe depression anxiety, Discharge may exacerbated symptoms, Severe functional impairment Progress Toward Problem(s) and Goals/Treatment Plan: Milieu/structure/supportive therapy SW consultation for discharge plan and social issues Med management wellbutrin 100mg po bid for depression and ADHD, as per pt, outpatient program refused to give stimulant for him Escitalopram d/c Nicotine 21 mg/24 hr [Nicoderm Cq] 1 patch TD DAILY OXcarbazepine [Trileptal] 300 mg PO BID Neurontin 300 mg 3 times a day Seroquel 50 mg at the nighttime for stabilization Remeron 30 mg at the nighttime for the depression and insomnia Klonopin 0.25 mg twice day started anxiety Family involvement Follow up on labs Will monitor closely Pt was educated about risk/benefits and alternatives of medications, coping st rategies (safety plan, suicide prevention), relapse prevention, importance of follow up with psychiatrist and therapist, stay away from drugs/alcohol/smoking Estimated Date of D/C: 09/08/18
[2018-09-07 07:02] VITALS: TEMP 97.3
[2018-09-07] MEDS: Clotrimazole/Betamethasone Cream(15 gm) TOP SCH ×2 (08:15→16:14)
--- NOTE | 2018-09-07 12:09 | PCM.BM ---
Treatment Plan Problems - Problems identified on initial assessmt Hopelessness/Helplessness Date Initiated: 08/29/18 Time Initiated: 23:44 Assessment reference: NA Status: Active Ineffective Coping Date Initiated: 08/29/18 Time Initiated: 23:45 Assessment reference: NA Status: Active Altered Sleep Patterns Date Initiated: 08/29/18 Time Initiated: 23:45 Assessment reference: NA Status: Active Medication nonadherence Date Initiated: 08/29/18 Time Initiated: 23:45 Assessment reference: NA Status: Active Treatment assets and liabiliti Patient Assests: cooperative, educated, self-reliant, ADL independent, physically healthy, good support system, negotiates basic needs, cognitively intact, good interpersonal skills Patient Liabilities: live alone, financial problems, poor support system, relationship conflicts - Milieu Protocol Maintain good personal hygiene: daily Encourage regular showers, daily Remind patient to perform daily oral care, daily Assist patient to perform ADL's Conduct patient checks and document Observation sheet: Q15 minutes Maintain personal safety: every shift Educate patient to report safety concerns to staff, every shift Monitor environment for contraband/sharps Medication safety: Monitor for expected outcome, potential side effects: every shift, Assess barriers to learning: every shift, Assess readiness for medication education: every shift Milieu Narrative: Milieu/structure/supportive therapy SW consultation for discharge plan and social issues Med management wellbutrin 100mg po bid for depression and ADHD, as per pt, outpatient program refused to give stimulant for him Escitalopram d/c Nicotine 21 mg/24 hr [Nicoderm Cq] 1 patch TD DAILY OXcarbazepine [Trileptal] 300 mg PO BID Neurontin 300 mg 3 times a day Seroquel 50 mg at the nighttime for stabilization Remeron 30 mg at the nighttime for the depression and insomnia Klonopin 0.25 mg twice day started anxiety Family involvement Follow up on labs Will monitor closely Pt was educated about risk/benefits and alternatives of medications, coping strategies (safety plan, suicide prevention), relapse prevention, importance of follow up with psychiatrist and therapist, stay away from drugs/alcohol/smoking Family Contact Family involvement: Famliy/SO not involved Discharge/Continuing Care - Education Needs Education Needs: Patient Medication, Patient Diagnosis/Disease Process, Patient Coping Skills, Patient Anger Management skills, Patient Community resources, Patient Health Practices/Safety, Patient Aftercare Safety Plan - Discharge Discharge Criteria: Tolerates medication w/o severe side effects, Free of Suicidal thoughts, Free of Homicidal thoughts, Free of paranoid thoughts, Free of agitation, Normal sleep pattern, Ability to care for self, Reduction of target symptoms - Treatment Team Participation Patient/Family/SO Statement: Milieu/structure/supportive therapy SW consultation for discharge plan and social issues Med management wellbutrin 100mg po bid for depression and ADHD, as per pt, outpatient program refused to give stimulant for him Escitalopram d/c Nicotine 21 mg/24 hr [Nicoderm Cq] 1 patch TD DAILY OXcarbazepine [Trileptal] 300 mg PO BID Neurontin 300 mg 3 times a day Seroquel 50 mg at the nighttime for stabilization Remeron 30 mg at the nighttime for the depression and insomnia Klonopin 0.25 mg twice day started anxiety Family involvement Follow up on labs Will monitor closely Pt was educated about risk/benefits and alternatives of medications, coping strategies (safety plan, suicide prevention), relapse prevention, importance of follow up with psychiatrist and therapist, stay away from drugs/alcohol/smoking Treatment Plan Review - Problem Hopelessness/Helplessness Time Initiated: 23:44 Ineffective Coping Time Initiated: :45 Altered Sleep Patterns Time Initiated: :45 Medication nonadherence Time Initiated: 23:45
--- NOTE | 2018-09-07 12:14 | PCM.PYCHPN ---
Psychiatric Progress Note - Psychiatric Progress Note Patient seen today, length of contact: 30 min Patient Chief Complaint: "I feel much better, my withdrawals are better" Problems Identified/Issues Discussed: Suicide/ homicide prevention, past psychiatric h/o, current psychiatric symptoms, medical problems, risk/benefits and alternatives of medications, medications compliance, coping strategies, substance abuse h/o, relapse prevention, importance of follow up with psychiatrist and therapist, discharge plan. Medical Problems: ?seizure disorder Diagnostic Results: 08/29/18 15:56 08/29/18 15:56 Lab Results 08/30/18 07:45: Fasting Glucose 94, Triglycerides 90, Cholesterol 282 H, LDL Cholesterol Direct 158 H, HDL Cholesterol 71 H 08/30/18 07:45: RPR Nonreactive 08/30/18 07:45: TSH 3rd Generation 1.18 08/29/18 16:18: Urine Opiates Screen Negative, Urine Methadone Screen Negative, Ur Barbiturates Screen Negative, Ur Phencyclidine Scrn Negative, Ur Amphetamines Screen Negative, U Benzodiazepines Scrn Negative, U Oth Cocaine Metabols Negative, U Cannabinoids Screen Negative 08/29/18 15:56: Urine Color Yellow, Urine Appearance Clear, Urine pH 6.0, Ur Spe cific [place] >= 1.030, Urine Protein Negative, Urine Glucose (UA) Negative, Urine Ketones Negative, Urine Blood Small H, Urine Nitrate Negative, Urine Bilirubin Negative, Urine Urobilinogen 0.2, Ur Leukocyte Esterase Negative, Urine RBC 1 - 3, Urine WBC 0 - 2, Ur Epithelial Cells None, Urine Bacteria Trace 08/29/18 15:56: Alcohol, Quantitative < 10 08/29/18 15:56: Salicylates < 1 L, Acetaminophen < 10.0 L 08/29/18 15:56: Sodium 141, Potassium 4.4, Chloride 103, Carbon Dioxide 28, Anion Gap 14, BUN 14, Creatinine 0.9, Est GFR ( Amer) > 60, Est GFR (Non- Af Amer) > 60, Random Glucose 88, Calcium 9.5, Total Bilirubin 0.9, AST 29, ALT 32, Alkaline Phosphatase 96, Total Protein 8.1, Albumin 4.4, Globulin 3.7, Albumin/Globulin Ratio 1.2 08/29/18 15:56: WBC 8.9, RBC 5.48, Hgb 17.3 D, Hct 49.6, MCV 90.5, MCH 31.6, MCHC 34.9, RDW 12.3, Plt Count 316, MPV 9.6, Gran % 67.6, Lymph % (Auto) 24.0, [place] % (Auto) 7.4 H, Eos % (Auto) 0.8 L, Baso % (Auto) 0.2, Gran # 6.02, Lymph # (Auto) 2.1, [place] # (Auto) 0.7 H, Eos # (Auto) 0.1, Baso # (Auto) 0.02 Vital Signs Temp Pulse Resp BP Pulse Ox 08/31/18 07:14 97.4 F L 75 20 109/71 08/30/18 16:00 90 119/73 08/30/18 07:21 98.0 F 75 20 126/82 08/29/18 21:30 98.3 F 80 20 107/79 97 08/29/18 19:14 85 18 129/75 98 08/29/18 17:05 88 18 129/63 98 08/29/18 15:38 97.7 F 84 17 129/83 97 Temp Pulse Resp BP Pulse Ox 97.3 F L 78 20 90/53 L 100 09/07/18 07:00 09/07/18 07:00 09/07/18 07:00 09/07/18 07:00 09/04/18 07:00 DSM 5 Symptoms Update: shortly patient is 33-year-old -[place]er male with self reported history of depression and anxiety, one previous psych admission, less than a month ago to this facility, pt came to the ED complaining of depression, possible suicidal ideation with the plan to jump off the bridge, pt c/o side effects of the Lexapro, requested to be weaned off from this medication. pt requires further evaluation and stabilization and meds adjustment. patient was seen at the treatment team meeting, pt said that he feels "agitated and I feel severe withdrawals", pt's vitals are stable, no signs of withdrawals, pt was self isolating, reported being depressed. vitals are stable, pt has good appetite good ADLs and good personal hygiene. "but overall I feel little better, yesterday I had a horrible day" As per staff patient is self isolating, bizarre Social far patient tolerates medications well, no side effects observed or reported, aims 0, no EPS. DSM 5 Diagnosis: mood disorder NOS r/o borderline personality Medication Change: Yes (neurontin increased) Medical Record Reviewed: Yes Mental Status Examination - Cognitive Function Orientation: Person, Place, Situation, Time Memory: Impaired (patient claimed that he had difficulty to remember things and concentrate) Attention: Poor Concentration: Poor Association: WNL Fund of Knowledge: WNL - Mood Mood: Neutral - Affect Affect: Other (inappropriate affect, patient was observed smiling and giggling inappropriately) - Speech Speech: Appropriate - Formal Thought Process Formal Thought Process: Circumstantial - Suicidal Ideation Suicidal Ideation: No - Homicidal Ideation Homicidal Ideation: No Goal/Treatment Plan - Goal/Treatment Plan Need for Continued Stay: Remain at risks for inpatient hospitalization, Severe depression anxiety, Discharge may exacerbated symptoms, Severe functional impairment Progress Toward Problem(s) and Goals/Treatment Plan: Milieu/structure/supportive therapy SW consultation for discharge plan and social issues Med management wellbutrin 100mg po bid for depression and ADHD, as per pt, outpatient program refused to give stimulant for him Escitalopram d/c Nicotine 21 mg/24 hr [Nicoderm Cq] 1 patch TD DAILY OXcarbazepine [Trileptal] 300 mg PO BID Neurontin 600 mg 2 times a day Seroquel 50 mg at the nighttime for stabilization Remeron 30 mg at the nighttime for the depression and insomnia Klonopin 0.25 mg twice day started anxiety Family involvement Follow up on labs Will monitor closely Pt was educated about risk/benefits and alternatives of medications, coping strategies (safety plan, suicide prevention), relapse prevention, importance of follow up with psychiatrist and therapist, stay away from drugs/alcohol/smoking Estimated Date of D/C: 09/08/18
[2018-09-08 07:26] VITALS: BP 84/46; PULSE 73; RESP 18
[2018-09-08] MEDS: Clotrimazole/Betamethasone Cream(15 gm) TOP SCH (08:37)
--- NOTE | 2018-09-08 16:33 | PCM.PYCHDC ---
Mental Status Examination - Mental Status Examination Orientation: Person, Place, Situation, Time Memory: Intact Mood: Neutral Affect: Broad (and mood congruent) Speech: Appropriate Attention: WNL Concentration: WNL Association: WNL Fund of Knowledge: WNL Formal Thought Process: No Impairment Description of patient's judgement and insight: Pt has improved insight into mental and medical illness, pt was compliant with medications and unit rules and regulations, pt was going to groups, was calm, cooperative, socially appropriate, no behavioral incidents, no agitation, no aggression. Psychotic Thoughts and Behaviors: Pt denied v/a/t hallucinations, denied paranoid ideations, pt does not appear to be psychotic, and thought process is goal directed. Suicidal Ideation: No Current Homicidal Ideation?: No Plan: pt adamantly denied thoughts of harming self or others denied intent or plan. Discharge Summary - Discharge Note Reason for Hospitalization: pt was admitted for possible suicidal ideation with the plan to jump off the bridge. Psychiatric History (includes Medical, Family, Personal Hx): see HPI Laboratory Data: 08/29/18 15:56 08/29/18 15:56 Lab Results 09/03/18 06:30: HIV 1&2 Ag/Ab, 4th Gen Nonreactive 09/03/18 06:30: Hepatitis A IgM Ab Negative, Hep Bs Antigen Negative, Hep B Core IgM Ab Negative, Hepatitis C Antibody Negative 08/30/18 07:45: Fasting Glucose 94, Triglycerides 90, Cholesterol 282 H, LDL Cholesterol Direct 158 H, HDL Cholesterol 71 H 08/30/18 07:45: RPR Nonreactive 08/30/18 07:45: TSH 3rd Generation 1.18 08/29/18 16:18: Urine Opiates Screen Negative, Urine Methadone Screen Negative, Ur Barbiturates Screen Negative, Ur Phencyclidine Scrn Negative, Ur Amphetamines Screen Negative, U Benzodiazepines Scrn Negative, U Oth Cocaine Metabols Negative, U Cannabinoids Screen Negative 08/29/18 15:56: Urine Color Yellow, Urine Appearance Clear, Urine pH 6.0, Ur Specific [place] >= 1.030, Urine Protein Negative, Urine Glucose (UA) Negative, Urine Ketones Negative, Urine Blood Small H, Urine Nitrate Negative, Urine Bilirubin Negative, Urine Urobilinogen 0.2, Ur Leukocyte Esterase Negative, Urine RBC 1 - 3, Urine WBC 0 - 2, Ur Epithelial Cells None, Urine Bacteria Trace 08/29/18 15:56: Alcohol, Quantitative < 10 08/29/18 15:56: Salicylates < 1 L, Acetaminophen < 10.0 L 08/29/18 15:56: Sodium 141, Potassium 4.4, Chloride 103, Carbon Dioxide 28, Anion Gap 14, BUN 14, Creatinine 0.9, Est GFR ( Amer) > 60, Est GFR (Non- Af Amer) > 60, Random Glucose 88, Calcium 9.5, Total Bilirubin 0.9, AST 29, ALT 32, Alkaline Phosphatase 96, Total Protein 8.1, Albumin 4.4, Globulin 3.7, Albumin/Globulin Ratio 1.2 08/29/18 15:56: WBC 8.9, RBC 5.48, Hgb 17.3 D, Hct 49.6, MCV 90.5, MCH 31.6, MCHC 34.9, RDW 12.3, Plt Count 316, MPV 9.6, Gran % 67.6, Lymph % (Auto) 24.0, [place] % (Auto) 7.4 H, Eos % (Auto) 0.8 L, Baso % (Auto) 0.2, Gran # 6.02, Lymph # (Auto) 2.1, [place] # (Auto) 0.7 H, Eos # (Auto) 0.1, Baso # (Auto) 0.02 Vital Signs Temp Pulse Resp BP Pulse Ox 09/08/18 07:23 97.3 F L 73 18 84/46 L 09/07/18 16:00 82 121/78 09/07/18 07:00 97.3 F L 78 20 90/53 L 09/06/18 16:00 93 H 115/81 09/06/18 07:10 97.5 F L 79 18 98/56 L 09/06/18 07:07 97.5 F L 79 20 98/56 L 09/05/18 16:00 75 118/79 09/05/18 07:00 97.5 F L 77 14 93/54 L 09/04/18 16:00 84 122/72 09/04/18 07:00 97.9 F 66 16 98/60 L 100 09/03/18 07:07 97.8 F 75 18 98/53 L 09/02/18 15:00 81 118/75 09/02/18 06:55 97.8 F 90 20 94/60 L 09/01/18 16:00 95 H 112/58 L 09/01/18 07:12 97.4 F L 75 20 110/67 08/31/18 16:00 93 H 116/67 08/31/18 07:14 97.4 F L 75 20 109/71 08/30/18 16:00 90 119/73 08/30/18 07:21 98.0 F 75 20 126/82 08/29/18 21:30 98.3 F 80 20 107/79 97 08/29/18 19:14 85 18 129/75 98 08/29/18 17:05 88 18 129/63 98 08/29/18 15:38 97.7 F 84 17 129/83 97 Consultations:: List each consultation separately and include: 1. Reason for request. 2. Findings. 3. Follow-up Consultations: patient was seen by medical team in the emergency room, no acute medical issues. Summary of Hospital Course include:: 1. Description of specific treatment plan utilized for patients during their course of treatmen. 2. Summarize the time- course for resolution of acute symptoms and/or regressed behaviors. 3. Describe issues identified and worked on during hospitalization. 4. Describe medication utilized. 5. Describe medical problems identified and treated. 6. Reassessment of suicide risk Summary of Hospital Course: shortly patient is 33-year-old -[place]ais male with self reported history of depression and anxiety, one previous psych admission, less than a month ago to this facility, pt came to the ED complaining of depression, possible suicidal ideation with the plan to jump off the bridge, pt c/o side effects of the Lexapro, requested to be weaned off from this medication. pt requires further evaluation and stabilization and meds adjustment. please see admission note for more detailed information 08/29/18 15:56 08/29/18 15:56 Lab Results 08/30/18 07:45: Fasting Glucose 94, Triglycerides 90, Cholesterol 282 H, LDL Cholesterol Direct 158 H, HDL Cholesterol 71 H 08/30/18 07:45: TSH 3rd Generation 1.18 08/29/18 16:18: Urine Opiates Screen Negative, Urine Methadone Screen Negative, Ur Barbiturates Screen Negative, Ur Phencyclidine Scrn Negative, Ur Amphetamines Screen Negative, U Benzodiazepines Scrn Negative, U Oth Cocaine Metabols Negative, U Cannabinoids Screen Negative 08/29/18 15:56: Urine Color Yellow, Urine Appearance Clear, Urine pH 6.0, Ur Specific [place] >= 1.030, Urine Protein Negative, Urine Glucose (UA) Negative, Urine Ketones Negative, Urine Blood Small H, Urine Nitrate Negative, Urine Bilirubin Negative, Urine Urobilinogen 0.2, Ur Leukocyte Esterase Negative, Urine RBC 1 - 3, Urine WBC 0 - 2, Ur Epithelial Cells None, Urine Bacteria Trace 08/29/18 15:56: Alcohol, Quantitative < 10 08/29/18 15:56: Salicylates < 1 L, Acetaminophen < 10.0 L 08/29/18 15:56: Sodium 141, Potassium 4.4, Chloride 103, Carbon Dioxide 28, Anion Gap 14, BUN 14, Creatinine 0.9, Est GFR ( Amer) > 60, Est GFR (Non- Af Amer) > 60, Random Glucose 88, Calcium 9.5, Total Bilirubin 0.9, AST 29, ALT 32, Alkaline Phosphatase 96, Total Protein 8.1, Albumin 4.4, Globulin 3.7, Albumin/Globulin Ratio 1.2 08/29/18 15:56: WBC 8.9, RBC 5.48, Hgb 17.3 D, Hct 49.6, MCV 90.5, MCH 31.6, MCHC 34.9, RDW 12.3, Plt Count 316, MPV 9.6, Gran % 67.6, Lymph % (Auto) 24.0, [place] % (Auto) 7.4 H, Eos % (Auto) 0.8 L, Baso % (Auto) 0.2, Gran # 6.02, Lymph # (Auto) 2.1, [place] # (Auto) 0.7 H, Eos # (Auto) 0.1, Baso # (Auto) 0.02 Vital Signs Temp Pulse Resp BP Pulse Ox 08/30/18 07:21 98.0 F 75 20 126/82 08/29/18 21:30 98.3 F 80 20 107/79 97 08/29/18 19:14 85 18 129/75 98 08/29/18 17:05 88 18 129/63 98 08/29/18 15:38 97.7 F 84 17 129/83 97 over the course of this hospitalization patient was stabilized on the following medication: Stimulants were discontinued Lexapro was discontinued Wellbutrin was slowly titrated to 200 mg twice a day for depression and possible ADHD Geodon 20 mg 3 times a day for mood stabilization Seroquel was given to him at the nighttime for sleep and stabilization at the time of discharge it was d/c Neurontin for anxiety Klonopin as needed for anxiety patient tolerated medications well, no side effects observed or reported, aims 0, no EPS. Over the course of this hospitalization patient was traumatic, was complaining of severe withdrawals from Lexapro which is highly unlikely, at the same time patient improved significantly, mood improved, patient did not have any agitation or aggression, patient was socially appropriate, patient reached maximum effect from acute psychiatric admission and deemed ready for discharge. At the time of the discharge pt denied been depressed, denied thoughts of harming self or others, denied psychotic symptoms, and pt does not appeared to be psychotic, denied been anxious, pt is not in imminent danger to self or others, pt was referred for [facility] outpatient program, information about follow up appointment, time and address provided to the pt, it is patient responsibility to follow up with outpatient clinic, PMD as well as specialists (see note for more detailed information). In case pt will need to obtain results of studies pending at discharge pt was provided with contact information of Psychiatric Inpatient unit [phone] as well as Medical Record Department [phone]. Naltrexone treatment not indicated at this time. Counseling about smoking and alcohol cessation provided AA meetings as well as smoking cessation treatment program information was provided by the pt was provided with prescriptions for all of medications (please see medication reconciliation form) Pt was educated about safety plan in case of worsening of symptoms or in case of suicidal or homicidal ideation call 911 or go to the nearest ER, also was educated to take meds as prescribed and stay away from drugs, pt verbalized understanding. - Diagnosis (1) Mood disorder Status: Chronic Priority: Medium (2) Borderline personality disorder Status: Chronic Priority: High - Final Diagnosis (DSM 5) Condition upon Discharge: IMPROVED Disposition: HOME/ ROUTINE Follow-up Treatment Plan: At the time of the discharge pt denied been depressed, denied thoughts of harming self or others, denied psychotic symptoms, and pt does not appeared to be psychotic, denied been anxious, pt is not in imminent danger to self or others, pt was referred for [facility] outpatient program, information about follow up appointment, time and address provided to the pt, it is patient responsibility to follow up with outpatient clinic, PMD as well as specialists (see note for more detailed information). In case pt will need to obtain results of studies pending at discharge pt was provided with contact information of Psychiatric Inpatient unit [phone] as well as Medical Record Department [phone]. Naltrexone treatment not indicated at this time. Counseling about smoking and alcohol cessation provided AA meetings as well as smoking cessation treatment program information was provided by the pt was provided with prescriptions for all of medications (please see medication reconciliation form) Pt was educated about safety plan in case of worsening of symptoms or in case of suicidal or homicidal ideation call 911 or go to the nearest ER, also was educated to take meds as prescribed and stay away from drugs, pt verbalized understanding. Prescriptions/Medication Reconciliation: buPROPion [Wellbutrin] 100 mg PO BID #30 tab clonazePAM [Klonopin] 0.25 mg PO BID #7 tab Clotrimazole/Betamethasone [Lotrisone] 1 gm TOP BID #1 tube Gabapentin [Neurontin] 600 mg PO BID #30 tablet Mirtazapine [Remeron] 30 mg PO HS #14 tab Nicotine 21 mg/24 hr [Nicoderm Cq] 1 patch TD DAILY #14 patch OXcarbazepine [Trileptal] 300 mg PO BID #30 tab Quetiapine Fumarate [Seroquel] 50 mg PO HS #14 tablet Ziprasidone [Geodon Cap] 20 mg PO TID #45 cap - Smoking Cessation Smoking Cessation Medication prescribed: Yes - Antipsychotic Medications Pt discharged on 2 or more routine antipsychotic medications: No - Justification for 2 or more meds Failed 3 or more trials of Monotherapy: List medications: seroquel was d/c
== END 2018-09-08 11:35 | disposition home or self-care (01) | DRG 430 ==
LOC: ED 15:06 → ERH 19:22 → PSYC 21:55
PROVIDERS: ADMIT Psychiatry & Neurology Psychiatry; ATTEND Psychiatry & Neurology Psychiatry
PROC: GZ3ZZZZ Medication Management (ICD-10-PCS; principal; 2018-08-30)
DX: F39 Unspecified mood [affective] disorder (principal); F60.3 Borderline personality disorder; R45.851 Suicidal ideations; F41.9 Anxiety disorder, unspecified; R21 Rash and other nonspecific skin eruption; E78.00 Pure hypercholesterolemia, unspecified; G40.909 Epilepsy, unspecified, not intractable, without status epilepticus; G47.00 Insomnia, unspecified; F17.210 Nicotine dependence, cigarettes, uncomplicated

== ENCOUNTER 2018-11-23 18:44 | Emergency (ER) | payer MEDICAID, OTHER ==
[2018-11-23 18:44] VITALS: BMI 20.7
[2018-11-23 19:15] VITALS: TEMP 98.9
--- NOTE | 2018-11-23 19:35 | ED PDOC ---
Arrival/HPI - General Historian: Patient - History of Present Illness Narrative History of Present Illness (Text): 11/23/18 19:21 33 y/o male, no significant pmh, psychiatric history including depression/suicidal ideation/anxiety/bipolar/borderline personality, nkda, c/o feeling anxious and hyper which causing him to unable to sleep. Pt. stated that he is not taking his psychiatric medications, causing him to unable to sleep at night, no homocidal or suicidal ideation, no auditory or visual hallucination, no night sweat, no rash, no dizziness, no change in vision, no other medical or psychological complaints. <Linus Caputo - Last Filed: 11/23/18 22:37> <Deangelo Riddle - Last Filed: 11/26/18 02:21> - General Chief Complaint: Psychiatric Evaluation Past Medical History - Provider Review Nursing Documentation Reviewed: Yes - Infectious Disease Hx of Infectious Diseases: None - Tetanus Immunization Tetanus Immunization: Unknown - Cardiac Hx Cardiac Disorders: No Hx Hypertension: No - Pulmonary Hx Tuberculosis: No - Neurological Hx Seizures: Yes - HEENT Hx HEENT Disorder: No - Renal Hx Renal Disorder: No - Endocrine/Metabolic Hx Endocrine Disorders: No - Hematological/Oncological Hx Cancer: No - Integumentary Hx Dermatological Disorder: No - Musculoskeletal/Rheumatological Hx Musculoskeletal Disorders: No - Gastrointestinal Hx Gastrointestinal Disorders: No - Genitourinary/Gynecological Hx Sexually Transmitted Diseases: No - Psychiatric Hx Psychophysiologic Disorder: Yes (ADHD, depression, anxiety, alcohol use, emotional abuse) Hx Substance Use: No - Anesthesia Hx Anesthesia: Yes Hx Anesthesia Reactions: No Hx Malignant Hyperthermia: No <Linus Caputo - Last Filed: 11/23/18 22:37> Family/Social History - Physician Review Nursing Documentation Reviewed: Yes Family/Social History: Unknown Family HX Smoking Status: Former Smoker Hx Alcohol Use: No Hx Substance Use: No <Linus Caputo - Last Filed: 11/23/18 22:37> Allergies/Home Meds <Linus Caputo - Last Filed: 11/23/18 22:37> <Deangelo Riddle - Last Filed: 11/26/18 02:21> Allergies/Adverse Reactions: Allergies No Known Allergies Allergy (Verified 11/23/18 19:15) Home Medications: Home Meds Medication Instructions Recorded Confirmed Divalproex [Depakote] 750 mg PO HS 12/13/18 12/27/18 Review of Systems - Review of Systems Constitutional: absent: Fatigue, Fevers Eyes: absent: Vision Changes ENT: absent: Hearing Changes Respiratory: absent: SOB, Cough Cardiovascular: absent: Chest Pain Gastrointestinal: absent: Abdominal Pain, Nausea, Vomiting Musculoskeletal: absent: Arthralgias, Back Pain Skin: absent: Rash, Pruritis Neurological: absent: Headache, Dizziness Psychiatric: Anxiety, Other (+insomnia). absent: Depression, Suicidal Ideation <Linus Caputo - Last Filed: 11/23/18 22:37> Physical Exam Vital Signs Reviewed: Yes Vital Signs Temp Pulse Resp BP Pulse Ox 11/23/18 19:11 98.9 F 114 H 20 132/77 97 Temperature: Afebrile Blood Pressure: Normal Pulse: Tachycardic Respiratory Rate: Normal Appearance: Positive for: Well-Appearing, Non-Toxic, Comfortable Pain Distress: None Mental Status: Positive for: Alert and Oriented X 3 - Systems Exam Head: Present: Atraumatic, Normocephalic Pupils: Present: PERRL Extroacular Muscles: Present: EOMI Conjunctiva: Present: Normal Mouth: Present: Moist Mucous Membranes Neck: Present: Normal Range of Motion Respiratory/Chest: Present: Clear to Auscultation, Good Air Exchange. No: Respiratory Distress, Accessory Muscle Use Cardiovascular: Present: Regular Rate and Rhythm, Normal S1, S2. No: Murmurs Abdomen: No: Tenderness, Distention, Peritoneal Signs Back: Present: Normal Inspection Upper Extremity: Present: Normal Inspection. No: Cyanosis, Edema Lower Extremity: Present: Normal Inspection. No: Edema Neurological: Present: GCS=15, CN II-XII Intact, Speech Normal Skin: Present: Warm, Dry, Normal Color. No: Rashes Psychiatric: Present: Alert, Oriented x 3, Normal Insight, Normal Concentration. No: Anxious, Agitated, Depressed Mood <Linus Caputo - Last Filed: 11/23/18 22:37> Vital Signs Temp Pulse Resp BP Pulse Ox 11/23/18 21:53 85 18 127/74 98 11/23/18 19:11 98.9 F 114 H 20 132/77 97 <Deangelo Riddle - Last Filed: 11/26/18 02:21> Medical Decision Making ED Course and Treatment: 11/23/18 19:37 -labs -ekg -cxr -ZACH paged -Observe and reassess 11/23/18 21:49 -EKG: NSR @ 88 BPM, no ST elevation or depression, no T wave inversion. -Chest xray ER wet read: no active disease -Labs show no active disease -Acetaminophine/salicylate/alcohol: show no acute findings -UA show no acute findings -UDS no acute findings -Pt. is medically clear and stable for psychiatric evaluation. 11/23/18 22:38 -Pt. evaluated by ZACH Serrano, spoke to the psychiatrist and advised to be discharged home. Pt. agreed and has no other questions. -Discharge home with education on continue your medication, follow with the ZACH serrano's plan with your psychiatrist, follow up with the pmd within 2 days, return to the ER for any new or worsening signs or symptoms. - RAD Interpretation Radiology Orders: 11/23/18 19:19 CHEST PORTABLE [RAD] Stat [employer]: Radiologist - EKG Interpretation EKG Interpretation (Text): 11/23/18 21:50 -EKG: NSR @ 88 BPM, no ST elevation or depression, no T wave inversion. Interpreted by ED Physician: Yes Type: 12 lead EKG <Linus Caputo Q - Last Filed: 11/23/18 22:37> - Lab Interpretations Lab Results: 11/23/18 20:53 11/23/18 20:53 Lab Results 11/23/18 21:10: Urine Color Yellow, Urine Appearance Clear, Urine pH 6.0, Ur Specific [place] >= 1.030, Urine Protein Negative, Urine Glucose (UA) Negative, Urine Ketones Trace H, Urine Blood Trace-intact H, Urine Nitrate Negative, Urine Bilirubin Negative, Urine Urobilinogen 0.2, Ur Leukocyte Esterase Negative, Urine RBC 1 - 3 H, Urine WBC 0 - 2, Ur Epithelial Cells 0 - 2 11/23/18 21:10: Urine Opiates Screen Negative, Urine Methadone Screen Negative, Ur Barbiturates Screen Negative, Ur Phencyclidine Scrn Negative, Ur Amphetamines Screen Negative, U Benzodiazepines Scrn Negative, U Oth Cocaine Metabols Negative, U Cannabinoids Screen Negative 11/23/18 20:53: WBC 8.5, RBC 4.87, Hgb 15.0 D, Hct 43.4, MCV 89.1, MCH 30.8, MCHC 34.6, RDW 12.7, Plt Count 251, MPV 9.6, Gran % 62.6, Lymph % (Auto) 25.6, [place] % (Auto) 10.9 H, Eos % (Auto) 0.7 L, Baso % (Auto) 0.2, Gran # 5.32, Lymph # (Auto) 2.2, [place] # (Auto) 0.9 H, Eos # (Auto) 0.1, Baso # (Auto) 0.02 11/23/18 20:53: Alcohol, Quantitative < 10 11/23/18 20:53: Sodium 137, Potassium 3.7, Chloride 106, Carbon Dioxide 25, Anion Gap 9 L, BUN 21, Creatinine 0.8, Est GFR ( Amer) > 60, Est GFR (Non-Af Amer) > 60, Random Glucose 127 H, Calcium 8.8, Total Bilirubin 0.7, AST 26, ALT 32, Alkaline Phosphatase 73, Total Protein 6.7, Albumin 3.6, Globulin 3.1, Albumin/Globulin Ratio 1.2 11/23/18 20:53: Salicylates < 1 L, Acetaminophen < 10.0 L - RAD Interpretation Radiology Orders: 11/23/18 19:19 CHEST PORTABLE [RAD] Stat <Deangelo Riddle - Last Filed: 11/26/18 02:21> - PA / SUGAR SAMPLER / Resident Statement MANUEL has reviewed & agrees with the documentation as recorded. <Linus Caputo - Last Filed: 11/23/18 22:37> - PA / SUGAR SAMPLER / Resident Statement MANUEL has reviewed & agrees with the documentation as recorded. <Deangelo Riddle - Last Filed: 11/26/18 02:21> Disposition/Present on Arrival - Present on Arrival Any Indicators Present on Arrival: No History of DVT/PE: No History of Uncontrolled Diabetes: No Urinary Catheter: No History of Decub. Ulcer: No History Surgical Site Infection Following: None - Disposition Have Diagnosis and Disposition been Completed?: Yes Disposition Time: 22:39 Patient Plan: Discharge <Linus Caputo - Last Filed: 11/23/18 22:37> <Deangelo Riddle - Last Filed: 11/26/18 02:21> - Disposition Diagnosis: Psychiatric care, Depression, Anxiety Disposition: HOME/ ROUTINE Condition: GOOD Additional Instructions: -Discharge home with education on continue your medication, follow with the ZACH serrano's plan with your psychiatrist, follow up with the pmd within 2 days, return to the ER for any new or worsening signs or symptoms. Referrals: [facility] [Outside] - Follow up with primary [facility] [place] - Follow up with [facility] [Outside] - Follow up with primary Forms: [employer] ([place]), WORK NOTE
[2018-11-23 21:03] LABS: BASO # 0.02 K/mm3 (0.0-2.0); BASO % 0.2 % (0.0-3.0); EOS # 0.1 (0.0-0.7); EOS % 0.7 % (1.5-5.0); GRAN # 5.32 (1.4-6.5); GRAN % 62.6 % (50.0-68.0); LYMPH # 2.2 (1.2-3.4); LYMPH % 25.6 % (22.0-35.0); MEAN CELL VOLUME 89.1 fl (80.0-105.0); MEAN CORPUSCULAR HEMOGLOBIN 30.8 pg (25.0-35.0); MEAN CORPUSCULAR HGB CONC 34.6 g/dl (31.0-37.0); MEAN PLATELET VOLUME 9.6 fl (7.0-11.0); MONO # 0.9 (0.1-0.6); MONO % 10.9 % (1.0-6.0); RBC 4.87 10^6/uL (3.5-6.1); RED CELL DISTRIBUTION WIDTH 12.7 % (11.5-14.5); WHITE BLOOD COUNT 8.5 10^3/uL (4.5-11.0)
[2018-11-23 21:08] LABS: ALB/GLOB RATIO 1.2 (1.1-1.8); ALBUMIN 3.6 g/dL (3.0-4.8); ALT/SGPT 32 U/L (7-56); AST/SGOT 26 U/L (17-59); BLOOD UREA NITROGEN 21 mg/dL (7-21); CALCIUM 8.8 mg/dL (8.4-10.5); GFR NON-AFRICAN AMERICAN > 60
[2018-11-23 21:09] LABS: ACETAMINOPHEN < 10.0 ug/ml (10.0-20.0); SALICYLATE < 1 mg/dL (2.0-20.0)
[2018-11-23 21:15] LABS: URINE APPEARANCE CLEAR (CLEAR); URINE BILIRUBIN NEGATIVE (NEGATIVE); URINE BLOOD TRACE-INTACT (NEGATIVE); URINE COLOR YELLOW (YELLOW); URINE GLUCOSE (UA) NEGATIVE (NEGATIVE); URINE LEUKOCYTE ESTERASE NEGATIVE Leu/uL (NEGATIVE); URINE PROTEIN NEGATIVE mg/dL (<30 mg/dL); URINE UROBILINOGEN 0.2 E.U./dL (<1 E.U./dL)
[2018-11-23 21:26] LABS: URINE EPITHELIAL CELLS 0 - 2 /hpf (0-5); URINE WBC 0 - 2 /hpf (0-6)
[2018-11-23 21:35] LABS: BARBITURATES, UR NEGATIVE (NEGATIVE); BENZODIAZEPINES, UR NEGATIVE (NEGATIVE); OPIATES, UR NEGATIVE (NEGATIVE); PHENCYCLIDINE, UR NEGATIVE (NEGATIVE)
[2018-11-23 21:54] VITALS: BP 127/74; RESP 18
[2018-11-24 01:02] VITALS: PULSE 87; O2SAT 100
--- NOTE | 2018-11-24 09:21 | RAD ---
Date of service: 11/23/2018 HISTORY: medical clearance COMPARISON: 08/29/2018 FINDINGS: LUNGS: No active pulmonary disease. PLEURA: No significant pleural effusion identified, no pneumothorax apparent. CARDIOVASCULAR: No aortic atherosclerotic calcification present. Normal cardiac size. No pulmonary vascular congestion. OSSEOUS STRUCTURES: No significant abnormalities. VISUALIZED UPPER ABDOMEN: Normal. OTHER FINDINGS: None. IMPRESSION: No active disease.
--- NOTE | 2018-11-24 12:30 | CARD ---
APPROVED REPORT Date of service: 11/23/2018 EKG Measurement Heart [id number] <Conclusion> Normal sinus rhythm Normal Electrocardiogram
== END 2018-11-23 23:08 | disposition home or self-care (01) ==
LOC: ED 18:44
DX: F32.9 Major depressive disorder, single episode, unspecified (principal); F41.9 Anxiety disorder, unspecified; Z87.891 Personal history of nicotine dependence

== ENCOUNTER 2019-02-03 18:43 | Emergency (ER) | payer OTHER, MEDICAID | END 2019-02-04 05:10 | disposition short-term general hospital (02) | LOC: ED 02-04 05:10 ==